=== PATIENT | male | born 1945 | race Caucasian/White ===

== ENCOUNTER 2020-03-10 07:42 | Outpatient (REF) | payer MEDICARE, SELFPAY ==
[2020-03-10 11:34] LABS: Estimated Average Glucose 169 mg/dL; Hemoglobin A1c % 7.5 %
[2020-03-10 11:54] LABS: Alanine Aminotransferase 14 U/L (0-40); Albumin Level 3.9 g/dL (3.5-5.0); Alkaline Phosphatase 74 U/L (39-117); Anion Gap 11 (12-20); Aspartate Amino Transferase 17 U/L (5-37); Bilirubin Total 0.4 mg/dL (0.0-1.0); Blood Urea Nitrogen 30 mg/dL (9-16); Calcium 8.4 mg/dL (8.4-10.2); Carbon Dioxide 27 mmol/L (22-29); Chloride 102 mmol/L (96-108); Cholesterol 205 mg/dL; Estimated Glomerular Filt Rate > 60; Glucose Fasting 138 mg/dL (60-99); HDL Cholesterol 56 mg/dL; LDL Cholesterol Calculated 125 mg/dl; Potassium 4.4 mmol/l (3.3-5.1); Sodium 136 mmol/L (135-145); Triglycerides 121 mg/dL
[2020-03-10 12:22] LABS: Creatinine Urine 73.09 mg/dL; Microalbum/Creatinine Ratio Ur 9.5 ug/mg cr
== END 2020-03-10 07:43 | disposition home or self-care (01) ==
LOC: HO.MANLR 07:42
PROVIDERS: PCP Internal Medicine; Visit Provider Internal Medicine
DX: E11.9 Type 2 diabetes mellitus without complications (principal)
CPT/HCPCS: 80053; 80061; 82043; 83036

== ENCOUNTER 2020-08-03 07:49 | Outpatient (REF) | payer MEDICARE, SELFPAY ==
[2020-08-03 11:49] LABS: Estimated Average Glucose 166 mg/dL; Hemoglobin A1c % 7.4 %
[2020-08-03 11:53] LABS: Alanine Aminotransferase 11 U/L (0-40); Albumin Level 3.7 g/dL (3.5-5.0); Alkaline Phosphatase 71 U/L (39-117); Anion Gap 13 (12-20); Aspartate Amino Transferase 17 U/L (5-37); Bilirubin Total 0.5 mg/dL (0.0-1.0); Blood Urea Nitrogen 24 mg/dL (9-16); Calcium 8.7 mg/dL (8.4-10.2); Carbon Dioxide 25 mmol/L (22-29); Chloride 105 mmol/L (96-108); Cholesterol 191 mg/dL; Estimated Glomerular Filt Rate > 60; Glucose Fasting 149 mg/dL (60-99); HDL Cholesterol 52 mg/dL; LDL Cholesterol Calculated 117 mg/dl; Potassium 4.7 mmol/L (3.3-5.1); Sodium 138 mmol/L (135-145); Total Protein 6.7 g/dL (6.5-8.0); Triglycerides 110 mg/dL
[2020-08-03 12:35] LABS: Microalbum/Creatinine Ratio Ur 8.5 ug/mg cr
== END 2020-08-03 07:50 | disposition home or self-care (01) ==
LOC: HO.MANLDS 07:49
PROVIDERS: PCP Internal Medicine; Visit Provider Internal Medicine
DX: E11.9 Type 2 diabetes mellitus without complications (principal)
CPT/HCPCS: 36415; 80053; 80061; 82043; 83036

== ENCOUNTER 2020-11-10 11:03 | Outpatient (REF) | payer MEDICARE, SELFPAY ==
[2020-11-10 13:08] LABS: Estimated Average Glucose 163 mg/dL; Hemoglobin A1c % 7.3 %
== END 2020-11-10 11:04 | disposition home or self-care (01) ==
LOC: HO.MANLDS 11:03
PROVIDERS: PCP Internal Medicine; Visit Provider Internal Medicine
DX: E11.9 Type 2 diabetes mellitus without complications (principal)
CPT/HCPCS: 36415; 83036

== ENCOUNTER 2021-02-14 13:46 | Outpatient (REF) | payer MEDICARE, SELFPAY ==
[2021-02-14 18:18] LABS: Estimated Average Glucose 169 mg/dL; Hemoglobin A1c % 7.5 %
== END 2021-02-14 13:47 | disposition home or self-care (01) ==
LOC: HO.MANLDS 13:46
PROVIDERS: PCP Internal Medicine; Visit Provider Internal Medicine
DX: E11.9 Type 2 diabetes mellitus without complications (principal)
CPT/HCPCS: 36415; 83036

== ENCOUNTER 2021-06-22 09:05 | Outpatient (REF) | payer MEDICARE, SELFPAY ==
[2021-06-22 11:58] LABS: Estimated Average Glucose 177 mg/dL; Hemoglobin A1c % 7.8 %
[2021-06-22 12:12] LABS: Microalbum/Creatinine Ratio Ur 46.1 ug/mg cr
[2021-06-22 12:13] LABS: Alanine Aminotransferase 17 U/L (0-40); Alkaline Phosphatase 77 U/L (39-117); Anion Gap 12 (12-20); Aspartate Amino Transferase 18 U/L (5-37); Bilirubin Total 0.6 mg/dL (0.0-1.0); Blood Urea Nitrogen 25 mg/dL (9-16); Calcium 9.1 mg/dL (8.4-10.2); Carbon Dioxide 26 mmol/L (22-29); Chloride 104 mmol/L (96-108); Cholesterol 210 mg/dL; Estimated Glomerular Filt Rate > 60; Glucose Fasting 169 mg/dL (60-99); HDL Cholesterol 56 mg/dL; LDL Cholesterol Calculated 124 mg/dl; Potassium 4.3 mmol/L (3.3-5.1); Sodium 138 mmol/L (135-145); Total Protein 7.4 g/dL (6.5-8.0); Triglycerides 152 mg/dL
== END 2021-06-22 09:06 | disposition home or self-care (01) ==
LOC: HO.MANLDS 09:05
PROVIDERS: PCP Internal Medicine; Visit Provider Internal Medicine
DX: E11.9 Type 2 diabetes mellitus without complications (principal)
CPT/HCPCS: 36415; 80053; 80061; 82043; 83036

== ENCOUNTER 2021-11-18 08:23 | Outpatient (REF) | payer MEDICARE, SELFPAY ==
[2021-11-18 11:38] LABS: Estimated Average Glucose 177 mg/dL; Hemoglobin A1c % 7.8 %
[2021-11-18 11:47] LABS: Alanine Aminotransferase 12 U/L (0-40); Albumin Level 3.9 g/dL (3.5-5.0); Alkaline Phosphatase 81 U/L (39-117); Anion Gap 16 (12-20); Aspartate Amino Transferase 15 U/L (5-37); Bilirubin Total 0.5 mg/dL (0.0-1.0); Blood Urea Nitrogen 29 mg/dL (9-16); Calcium 9.4 mg/dL (8.4-10.2); Carbon Dioxide 26 mmol/L (22-29); Chloride 104 mmol/L (96-108); Cholesterol 213 mg/dL; Estimated Glomerular Filt Rate 43; Glucose Random 176 mg/dL (60-115); HDL Cholesterol 57 mg/dL; LDL Cholesterol Calculated 131 mg/dl; Potassium 5.2 mmol/L (3.3-5.1); Sodium 141 mmol/L (135-145); Total Protein 7.4 g/dL (6.5-8.0); Triglycerides 125 mg/dL
[2021-11-18 12:11] LABS: Microalbum/Creatinine Ratio Ur 21.7 ug/mg cr
[2021-11-27 11:55] LABS: A. Phagocytophilum Ab IgM <1:20 (<1:20); E. Chaffeensis Ab IgG <1:64 (<1:64); E. Chaffeensis Ab IgM <1:20 (<1:20); Interpretation PAST INFECTION
== END 2021-11-18 08:24 | disposition home or self-care (01) ==
LOC: HO.MANLDS 08:23
PROVIDERS: Visit Provider Internal Medicine
DX: E11.9 Type 2 diabetes mellitus without complications (principal); A79.82 Anaplasmosis [A. phagocytophilum]
CPT/HCPCS: 36415; 80053; 80061; 82043; 83036; 86666

== ENCOUNTER 2021-12-02 10:51 | Outpatient (REF) | payer MEDICARE, SELFPAY ==
[2021-12-02 12:44] LABS: Hematocrit 39.4 % (42.0-52.0); Hemoglobin 13.2 g/dl (14.0-18.0); Mean Corpuscular HGB Conc 33.5 g/dl (31.0-36.0); Mean Corpuscular Hemoglobin 29.9 pg (27.0-33.0); Mean Corpuscular Volume 89.1 fL (80.0-98.0); Mean Platelet Volume 9.6 fL (9.4-12.4); Platelet Count 261 X10*3/uL (160-400); Red Blood Count 4.42 X10*6/uL (4.60-5.80); Red Cell Distribution Width 13.4 % (11.0-16.0); White Blood Count 7.6 X10*3/uL (4.8-10.8)
[2021-12-02 13:29] LABS: Erythrocyte Sedimentation Rate 16 MM/HR (0-15)
[2021-12-02 13:53] LABS: Prostate Specific Antigen 0.59 ng/mL (<0.05-4.0)
== END 2021-12-02 10:52 | disposition home or self-care (01) ==
LOC: HO.MANLDS 10:51
PROVIDERS: Visit Provider Internal Medicine
DX: I10 Essential (primary) hypertension (principal); Z12.5 Encounter for screening for malignant neoplasm of prostate
CPT/HCPCS: 36415; 84153; 85027; 85652

== ENCOUNTER 2022-02-21 09:23 | Outpatient (REF) | payer MEDICARE, SELFPAY ==
[2022-02-21 11:57] LABS: Estimated Average Glucose 157 mg/dL; Hemoglobin A1c % 7.1 %
== END 2022-02-21 09:24 | disposition home or self-care (01) ==
LOC: HO.MANLDS 09:23
PROVIDERS: Visit Provider Internal Medicine
DX: E11.9 Type 2 diabetes mellitus without complications (principal)
CPT/HCPCS: 36415; 83036

== ENCOUNTER 2022-05-23 14:51 | Outpatient (REF) | payer MEDICARE, SELFPAY ==
[2022-05-23 18:07] LABS: Estimated Average Glucose 157 mg/dL; Hemoglobin A1c % 7.1 %
== END 2022-05-23 14:52 | disposition home or self-care (01) ==
LOC: HO.MANLDS 14:51
PROVIDERS: Visit Provider Internal Medicine
DX: E11.9 Type 2 diabetes mellitus without complications (principal)
CPT/HCPCS: 36415; 83036

== ENCOUNTER 2022-06-05 10:38 | Outpatient (REF) | payer MEDICARE, SELFPAY ==
[2022-06-05 14:48] LABS: Creatinine Urine 45.92 mg/dL; Microalbum/Creatinine Ratio Ur 52.2 ug/mg cr
[2022-06-06 21:49] LABS: Lyme Abs Screen <0.90 index
== END 2022-06-05 10:39 | disposition home or self-care (01) ==
LOC: HO.MANLDS 10:38
PROVIDERS: Visit Provider Internal Medicine
DX: T14.8XXA Other injury of unspecified body region, initial encounter (principal); W57.XXXA Bitten or stung by nonvenomous insect and other nonvenomous arthropods, initial encounter; E11.9 Type 2 diabetes mellitus without complications
CPT/HCPCS: 36415; 82043; 86617; 86618

== ENCOUNTER 2022-07-07 10:56 | Outpatient (REF) | payer MEDICARE, SELFPAY ==
[2022-07-07 12:54] LABS: MANUAL DIFF FLAG NO
[2022-07-07 12:57] LABS: Appearance Urine Clear; Color Urine Yellow; Glucose Urine UA Negative (Negative); Leukocyte Esterase Urine Negative (Negative); Nitrite Urine Negative (Negative); Specific Gravity - Urine 1.015 (1.005-1.025); Urine Blood Negative (Negative); Urine Ketones Negative (Negative); Urine Protein Negative (Neg-Trace)
[2022-07-07 13:01] LABS: Basophils Percent Auto 0.1 % (0-2); Eosinophils Absolute Auto 0.2 X10*3/uL (0.0-0.4); Eosinophils Percent Auto 2.8 % (0-4); Hematocrit 38.7 % (42.0-52.0); Hemoglobin 12.8 g/dl (14.0-18.0); Imm Gran Abs Auto 0.03 X10*3/uL (0.00-0.03); Imm Gran Pct Auto 0.3 % (0.0-0.4); Lymphocytes Absolute Auto 1.9 X10*3/uL (1.2-4.9); Lymphocytes Percent Auto 22.4 % (20-40); Mean Corpuscular HGB Conc 33.1 g/dl (31.0-36.0); Mean Corpuscular Hemoglobin 30.2 pg (27.0-33.0); Mean Corpuscular Volume 91.3 fL (80.0-98.0); Mean Platelet Volume 9.7 fL (9.4-12.4); Monocytes Absolute Auto 0.6 X10*3/uL (0.1-1.2); Neutrophils Absolute Auto 5.8 x10*3/uL (2.0-8.3); Neutrophils Percent Auto 67.4 % (45-73); Platelet Count 320 X10*3/uL (160-400); Red Blood Count 4.24 X10*6/uL (4.60-5.80); Red Cell Distribution Width 13.5 % (11.0-16.0); White Blood Count 8.6 X10*3/uL (4.8-10.8)
[2022-07-07 13:02] LABS: Bacteria Urine None Seen (None Seen); Hyaline Casts Urine 0-2 /LPF (0-2); RBC Urine 0-2 /HPF (0-2); Squamous Epithelial Cell Urine 0-2 /HPF (0-2); WBC Urine 0-5 /HPF (0-5)
[2022-07-07 13:06] LABS: Estimated Average Glucose 174 mg/dL; Hemoglobin A1c % 7.7 %
[2022-07-07 13:40] LABS: Alanine Aminotransferase 13 U/L (0-40); Alkaline Phosphatase 92 U/L (39-117); Anion Gap 14 (12-20); Aspartate Amino Transferase 14 U/L (5-37); Bilirubin Total 0.7 mg/dL (0.0-1.0); Blood Urea Nitrogen 29 mg/dL (9-16); Calcium 9.1 mg/dL (8.4-10.2); Carbon Dioxide 25 mmol/L (22-29); Chloride 103 mmol/L (96-108); Estimated Glomerular Filt Rate 49; Glucose Random 166 mg/dL (60-115); Sodium 137 mmol/L (135-145); Total Protein 7.2 g/dL (6.5-8.0)
[2022-07-07 14:04] LABS: Prostate Specific Antigen 0.92 ng/mL (<0.05-4.0); Vitamin B12 371 pg/mL (200-900); Vitamin D 25-OH Total 23.4 ng/mL (>30)
[2022-07-10 18:53] LABS: Lyme Abs Screen <0.90 index
== END 2022-07-07 10:57 | disposition home or self-care (01) ==
LOC: HO.MANLDS 10:56
PROVIDERS: Visit Provider Internal Medicine
DX: Z12.5 Encounter for screening for malignant neoplasm of prostate (principal); R30.9 Painful micturition, unspecified; T14.8XXA Other injury of unspecified body region, initial encounter; W57.XXXA Bitten or stung by nonvenomous insect and other nonvenomous arthropods, initial encounter; E11.9 Type 2 diabetes mellitus without complications; I10 Essential (primary) hypertension; N39.0 Urinary tract infection, site not specified; E55.9 Vitamin D deficiency, unspecified
CPT/HCPCS: 36415; 80053; 81001; 82306; 82607; 83036; 84153; 85025; 86617; 86618

== ENCOUNTER 2022-07-19 09:36 | Outpatient (REF) | payer MEDICARE, SELFPAY ==
[2022-07-19 11:30] LABS: Appearance Urine Cloudy; Color Urine Yellow; Glucose Urine UA Negative (Negative); Leukocyte Esterase Urine Large (3+) (Negative); Nitrite Urine Negative (Negative); UMIC TRIGGER UACC YES; Urine Blood Trace (Negative); Urine Ketones Negative (Negative); Urine Protein Trace mg/dL (Neg-Trace)
[2022-07-19 11:49] LABS: Bacteria Urine 4+ (None Seen); Hyaline Casts Urine 0-2 /LPF (0-2); RBC Urine 0-2 /HPF (0-2); Squamous Epithelial Cell Urine 0-2 /HPF (0-2); UACC Culture Trigger YES; WBC Urine >50 /HPF (0-5)
[2022-07-19 11:57] LABS: Uric Acid 8.4 mg/dL (3.4-7.0)
== END 2022-07-19 09:37 | disposition home or self-care (01) ==
LOC: HO.MANLDS 09:36
PROVIDERS: Visit Provider Internal Medicine
DX: E79.0 Hyperuricemia without signs of inflammatory arthritis and tophaceous disease (principal); R30.9 Painful micturition, unspecified
CPT/HCPCS: 36415; 81001; 84550; 87086; 87088; 87186

== ENCOUNTER 2022-08-02 11:04 | Outpatient (REF) | payer MEDICARE, SELFPAY ==
[2022-08-02 14:18] LABS: Estimated Average Glucose 163 mg/dL; Hemoglobin A1c % 7.3 %
[2022-08-02 15:09] LABS: Alanine Aminotransferase 12 U/L (0-40); Albumin Level 3.8 g/dL (3.5-5.0); Alkaline Phosphatase 88 U/L (39-117); Anion Gap 13 (12-20); Aspartate Amino Transferase 15 U/L (5-37); Bilirubin Total 0.4 mg/dL (0.0-1.0); Blood Urea Nitrogen 21 mg/dL (9-16); Calcium 9.4 mg/dL (8.4-10.2); Carbon Dioxide 27 mmol/L (22-29); Chloride 104 mmol/L (96-108); Estimated Glomerular Filt Rate 56; Glucose Random 197 mg/dL (60-115); Potassium 5.3 mmol/L (3.3-5.1); Sodium 139 mmol/L (135-145); Total Protein 7.1 g/dL (6.5-8.0)
== END 2022-08-02 11:05 | disposition home or self-care (01) ==
LOC: HO.MANLDS 11:04
PROVIDERS: Visit Provider Internal Medicine
DX: E11.9 Type 2 diabetes mellitus without complications (principal)
CPT/HCPCS: 36415; 80053; 83036

== ENCOUNTER 2022-08-08 08:59 | Outpatient (REF) | payer MEDICARE, SELFPAY ==
[2022-08-08 11:20] LABS: Appearance Urine Clear; Color Urine Yellow; Glucose Urine UA Negative (Negative); Leukocyte Esterase Urine Trace (Negative); Nitrite Urine Negative (Negative); PH 5.5 (5.0-9.0); Specific Gravity - Urine <= 1.005 (1.005-1.025); UMIC TRIGGER UACC YES; Urine Blood Negative (Negative); Urine Ketones Negative (Negative); Urine Protein Negative (Neg-Trace)
[2022-08-08 11:24] LABS: Bacteria Urine None Seen (None Seen); Hyaline Casts Urine 0-2 /LPF (0-2); RBC Urine 0-2 /HPF (0-2); Squamous Epithelial Cell Urine 0-2 /HPF (0-2); WBC Urine 0-5 /HPF (0-5)
== END 2022-08-08 09:00 | disposition home or self-care (01) ==
LOC: HO.MANLNP 08:59
PROVIDERS: Visit Provider Internal Medicine
DX: N39.0 Urinary tract infection, site not specified (principal)
CPT/HCPCS: 81001; 87086

== ENCOUNTER 2022-09-25 09:30 | Outpatient (REF) | payer MEDICARE, SELFPAY ==
[2022-09-25 12:03] LABS: Alanine Aminotransferase 12 U/L (0-40); Albumin Level 3.8 g/dL (3.5-5.0); Alkaline Phosphatase 75 U/L (39-117); Anion Gap 13 (12-20); Aspartate Amino Transferase 15 U/L (5-37); Bilirubin Total 0.4 mg/dL (0.0-1.0); Blood Urea Nitrogen 16 mg/dL (9-16); Calcium 9.1 mg/dL (8.4-10.2); Carbon Dioxide 25 mmol/L (22-29); Chloride 107 mmol/L (96-108); Estimated Glomerular Filt Rate > 60; Glucose Random 153 mg/dL (60-115); Potassium 4.3 mmol/L (3.3-5.1); Sodium 141 mmol/L (135-145)
[2022-09-25 12:17] LABS: Estimated Average Glucose 151 mg/dL; Hemoglobin A1c % 6.9 %
== END 2022-09-25 09:31 | disposition home or self-care (01) ==
LOC: HO.MANLDS 09:30
PROVIDERS: Visit Provider Internal Medicine
DX: E11.9 Type 2 diabetes mellitus without complications (principal)
CPT/HCPCS: 36415; 80053; 83036

== ENCOUNTER 2023-03-14 09:46 | Outpatient (REF) | payer MEDICARE, SELFPAY ==
[2023-03-14 13:35] LABS: Estimated Average Glucose 148 mg/dL; Hemoglobin A1c % 6.8 % (<6.0)
[2023-03-14 13:40] LABS: Alanine Aminotransferase 12 U/L (0-40); Alkaline Phosphatase 82 U/L (39-117); Anion Gap 13 (12-20); Aspartate Amino Transferase 17 U/L (5-37); Bilirubin Total 0.4 mg/dL (0.0-1.0); Blood Urea Nitrogen 24 mg/dL (9-16); Calcium 9.1 mg/dL (8.4-10.2); Carbon Dioxide 24 mmol/L (22-29); Chloride 106 mmol/L (96-108); Cholesterol 135 mg/dL (<200); Estimated Glomerular Filt Rate > 60; Glucose Random 164 mg/dL (60-115); HDL Cholesterol 58 mg/dL (>40); LDL Cholesterol Calculated 51 mg/dL (<100); Potassium 4.1 mmol/L (3.3-5.1); Sodium 139 mmol/L (135-145); Total Protein 7.6 g/dL (6.5-8.0); Triglycerides 133 mg/dL (<150)
== END 2023-03-14 09:47 | disposition home or self-care (01) ==
LOC: HO.MANLDS 09:46
PROVIDERS: Visit Provider Internal Medicine
DX: E11.9 Type 2 diabetes mellitus without complications (principal)
CPT/HCPCS: 36415; 80053; 80061; 83036

== ENCOUNTER 2023-05-09 10:56 | Outpatient (REF) | payer MEDICARE, SELFPAY ==
[2023-05-09 13:51] LABS: Estimated Average Glucose 157 mg/dL; Hemoglobin A1c % 7.1 % (<6.0)
== END 2023-05-09 10:57 | disposition home or self-care (01) ==
LOC: HO.MANLDS 10:56
PROVIDERS: Visit Provider Internal Medicine
DX: E11.9 Type 2 diabetes mellitus without complications (principal)
CPT/HCPCS: 36415; 83036

== ENCOUNTER 2023-09-03 14:08 | Outpatient (REF) | payer MEDICARE, SELFPAY ==
[2023-09-03 17:33] LABS: MANUAL DIFF FLAG NO
[2023-09-03 17:44] LABS: Basophils Percent Auto 0.2 % (0-2); Eosinophils Absolute Auto 0.2 X10*3/uL (0.0-0.4); Eosinophils Percent Auto 4.1 % (0-4); Hematocrit 38.7 % (42.0-52.0); Hemoglobin 12.9 g/dl (14.0-18.0); Imm Gran Abs Auto 0.01 X10*3/uL (0.00-0.03); Imm Gran Pct Auto 0.2 % (0.0-0.4); Lymphocytes Absolute Auto 1.3 X10*3/uL (1.2-4.9); Lymphocytes Percent Auto 24.5 % (20-40); Mean Corpuscular HGB Conc 33.3 g/dl (31.0-36.0); Mean Corpuscular Hemoglobin 30.4 pg (27.0-33.0); Mean Corpuscular Volume 91.1 fL (80.0-98.0); Mean Platelet Volume 9.8 fL (9.4-12.4); Monocytes Absolute Auto 0.4 X10*3/uL (0.1-1.2); Monocytes Percent Auto 7.6 % (2-11); Neutrophils Absolute Auto 3.4 x10*3/uL (2.0-8.3); Neutrophils Percent Auto 63.4 % (45-73); Platelet Count 269 X10*3/uL (160-400); Red Blood Count 4.25 X10*6/uL (4.60-5.80); White Blood Count 5.4 X10*3/uL (4.8-10.8)
[2023-09-03 18:08] LABS: Alanine Aminotransferase 13 U/L (0-40); Alkaline Phosphatase 76 U/L (39-117); Anion Gap 14 (12-20); Aspartate Amino Transferase 17 U/L (5-37); Bilirubin Total 0.4 mg/dL (0.0-1.0); Blood Urea Nitrogen 24 mg/dL (9-16); C Reactive Protein 0.19 mg/dL (< or = 0.50); Calcium 9.3 mg/dL (8.4-10.2); Carbon Dioxide 24 mmol/L (22-29); Chloride 107 mmol/L (96-108); Estimated Glomerular Filt Rate > 60; Glucose Random 138 mg/dL (60-115); Potassium 4.5 mmol/L (3.3-5.1); Sodium 140 mmol/L (135-145); Total Protein 7.5 g/dL (6.5-8.0)
[2023-09-03 18:20] LABS: Erythrocyte Sedimentation Rate 11 MM/HR (0-15)
== END 2023-09-03 14:09 | disposition home or self-care (01) ==
LOC: HO.MANLDS 14:08
PROVIDERS: Visit Provider Internal Medicine
DX: Z00.00 Encounter for general adult medical examination without abnormal findings (principal); N50.819 Testicular pain, unspecified; R10.2 Pelvic and perineal pain
CPT/HCPCS: 36415; 80053; 85025; 85652; 86140

== ENCOUNTER 2024-07-01 10:35 | Outpatient (REF) | payer MEDICARE, SELFPAY ==
--- OUTSIDE RECORDS SUMMARY | 2024-07-01 12:36 | XMS_ITS | Data Portability ---
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) MDM MODERATE MUST MEET 2 OUT OF 3 ELEMENTS: PROBLEMS, DATA OR RISK ELEMENT 1: PROBLEMS ADDRESSED 1 OR MORE CHRONIC ILLNESS WITH EXACERBATION OR 2 OR MORE STABLE CHRONIC ILLNESSES OR 1 UNDIAGNOSED NEW PROBLEM OR 1 ACUTE ILLNESS W/SYMPTOMS OR 1 ACUTE COMPLICATED INJURY ELEMENT 2: DATA MUST MEET 1 OF 3 CATEGORIES CATEGORY 1: REVIEW OF PRIOR EXTERNAL NOTES, REVIEW OF RESULTS, ORDERING OF EACH TEST, ASSESSMENT REQUIRING INDEPENDENT HISTORIAN OR CATEGORY 2: INDEPENDENT INTERPRETATION OF TESTS BY ANOTHER PHYSICIAN OR SPECIALIST OR CATEGORY 3: DISCUSSION OF MGT OR TEST INTERPRETATION W/EXTERNAL PHYSICIAN OR SPECIALIST ELEMENT 3: RISK RISK OF COMPLICATIONS AND/OR MORBIDITY OR MORTALITY OF PATIENT MANAGEMENT PROVIDER MUST THOROUGHLY DOCUMENT EACH ELEMENT THAT IS COVERED Not available 05/29/2023 15:34:08 09/03/2023 09/03/2023 Patient presente d to office today for their Medicare Annual Wellness Visit. Education was provided on healthy nutrition, including a diet rich in fruits and vegetables, minimizing simple carbohydrates, salt, and saturated fats. Encouraged regular cardiovascular exercise such as walking at least 30 minutes daily, 5 times per week. Emphasized preventive health measures and educated pt on fall prevention and community-based lifestyle interventions to help reduce health risks and promote healthy living. 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) MDM MODERATE MUST MEET 2 OUT OF 3 ELEMENTS: PROBLEMS, DATA OR RISK ELEMENT 1: PROBLEMS ADDRESSED 1 OR MORE CHRONIC ILLNESS WITH EXACERBATION OR 2 OR MORE STABLE CHRONIC ILLNESSES OR 1 UNDIAGNOSED NEW PROBLEM OR 1 ACUTE ILLNESS W/SYMPTOMS OR 1 ACUTE COMPLICATED INJURY ELEMENT 2: DATA MUST MEET 1 OF 3 CATEGORIES CATEGORY 1: REVIEW OF PRIOR EXTERNAL NOTES, REVIEW OF RESULTS, ORDERING OF EACH TEST, ASSESSMENT REQUIRING INDEPENDENT HISTORIAN OR CATEGORY 2: INDEPENDENT INTERPRETATION OF TESTS BY ANOTHER PHYSICIAN OR SPECIALIST OR CATEGORY 3: DISCUSSION OF MGT OR TEST INTERPRETATION W/EXTERNAL PHYSICIAN OR SPECIALIST ELEMENT 3: RISK RISK OF COMPLICATIONS AND/OR MORBIDITY OR MORTALITY OF PATIENT MANAGEMENT PROVIDER MUST THOROUGHLY DOCUMENT EACH ELEMENT THAT IS COVERED Not available 12/26/2023 14:54:28 03/19/2024 03/19/2024 [id number] [place] [id number] (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) MDM MODERATE MUST MEET 2 OUT OF 3 ELEMENTS: PROBLEMS, DATA OR RISK ELEMENT 1: PROBLEMS ADDRESSED 1 OR MORE CHRONIC ILLNESS WITH EXACERBATION OR 2 OR MORE STABLE CHRONIC ILLNESSES OR 1 UNDIAGNOSED NEW PROBLEM OR 1 ACUTE ILLNESS W/SYMPTOMS OR 1 ACUTE COMPLICATED INJURY ELEMENT 2: DATA MUST MEET 1 OF 3 CATEGORIES CATEGORY 1: REVIEW OF PRIOR EXTERNAL NOTES, REVIEW OF RESULTS, ORDERING OF EACH TEST, ASSESSMENT REQUIRING INDEPENDENT HISTORIAN OR CATEGORY 2: INDEPENDENT INTERPRETATION OF TESTS BY ANOTHER PHYSICIAN OR SPECIALIST OR CATEGORY 3: DISCUSSION OF MGT OR TEST INTERPRETATION W/EXTERNAL PHYSICIAN OR SPECIALIST ELEMENT 3: RISK RISK OF COMPLICATIONS AND/OR MORBIDITY OR MORTALITY OF PATIENT MANAGEMENT PROVIDER MUST THOROUGHLY DOCUMENT EACH ELEMENT THAT IS COVERED Not available 03/19/2024 13:44:28 06/11/2024 06/11/2024 [id number] [place] [id number] (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) MDM MODERATE MUST MEET 2 OUT OF 3 ELEMENTS: PROBLEMS, DATA OR RISK ELEMENT 1: PROBLEMS ADDRESSED 1 OR MORE CHRONIC ILLNESS WITH EXACERBATION OR 2 OR MORE STABLE CHRONIC ILLNESSES OR 1 UNDIAGNOSED NEW PROBLEM OR 1 ACUTE ILLNESS W/SYMPTOMS OR 1 ACUTE COMPLICATED INJURY ELEMENT 2: DATA MUST MEET 1 OF 3 CATEGORIES CATEGORY 1: REVIEW OF PRIOR EXTERNAL NOTES, REVIEW OF RESULTS, ORDERING OF EACH TEST, ASSESSMENT REQUIRING INDEPENDENT HISTORIAN OR CATEGORY 2: INDEPENDENT INTERPRETATION OF TESTS BY ANOTHER PHYSICIAN OR SPECIALIST OR CATEGORY 3: DISCUSSION OF MGT OR TEST INTERPRETATION W/EXTERNAL PHYSICIAN OR SPECIALIST ELEMENT 3: RISK RISK OF COMPLICATIONS AND/OR MORBIDITY OR MORTALITY OF PATIENT MANAGEMENT PROVIDER MUST THOROUGHLY DOCUMENT EACH ELEMENT THAT IS COVERED Not available 06/11/2024 14:04:36 Plan of Treatment Reminders Order Date Submit Date Provider Last Modified By Organization Details Last Modified Time Details Appointments FOLLOW UP 2024 02:15P Gerri RIOS Not available Not available Not available Lab uric acid, serum or plasma 2024 025 [facility], [address] [place] [address], [id number], 06/11/2024 14:13:06 C reactive protein, QN, serum or plasma 2023 024 [facility], [address] [place] [address], [address], 09/03/2023 14:00:55 ESR (erythroc yte sedimenta tion rate), blood 2023 024 [facility], [address] [place] [address], [address], 09/03/2023 14:00:55 hemoglobi n, gastroint estinal, stool 2023 024 [facility], [address] [place] [address], [address], 09/03/2023 14:00:54 CBC w/ auto diff 2023 024 [facility], [address] [place] [address], [address], 09/04/2023 11:28:29 CMP, serum or plasma 2023 024 [facility], [address] [place] [address], [address], 09/04/2023 11:28:29 Referral None recorded. Procedures None recorded. Surgeries None recorded. Imaging MRI, pelvis, w/o contrast [facility]24 [facility], [address], [address], 01/22/2024 08:29:20 MRI, pelvis, w/o contrast [facility] [address] [place], [address], 10/29/2023 08:10:10 Medication Orders lorazepam 1 mg tablet 2023 [email or web address] [facility], [address] [place], [address], 06/11/2024 13:45:56 rosuvasta tin 5 mg tablet 2023 [facility], [address] [place], [address], 09/03/2023 13:52:35 lisinopri l 5 mg tablet 2023 [facility], [address] [place], [address], 09/03/2023 13:52:35 Patient TargetsNo targets recorded. Patient Instructions Encounter Date Encounter Id Patient Instructions Last Modified By Organization Details Last Modified Time 09/03/2023 [id number] testicular pain: care instructions Not available 09/03/2023 13:52:32 advance care planning: care instructions Not available 09/03/2023 13:52:32 Discussed and explained advance directives such as standard forms to the {{patient* caregi christiano patient and caregiver}}. Face to face discussion lasted for a duration of _10_ minutes. Not available 09/03/2023 13:58:24 12/26/2023 [id number] gout: care instructions Not available 12/26/2023 15:02:29 learning about type 2 diabetes Not available 12/26/2023 15:02:29 type 2 diabetes: care instructions Not available 12/26/2023 15:02:29 06/11/2024 [id number] gout: care instructions Not available 06/11/2024 14:07:02 learning about type 2 diabetes Not available 06/11/2024 14:07:02 type 2 diabetes: care instructions Not available 06/11/2024 14:07:02 high blood pressure: care instructions Not available 06/11/2024 14:07:02 learning about high blood pressure Not available 06/11/2024 14:07:02 Reason for Referral None Reported. Results Created Date Observation Date Name Description Value Unit Range Abnormal Flag Note LastModifiedBy Organization Detail LastModifiedTime 06/10/1906/09/2024 HbA1c (hemo globi n A1c), blood A1C 7.5 abnormal Not Available [facility] [address] [place] [address], [place], [address], 06/09/2024 14:26:38 02/05/20 24 02/05/2024 MRI, pelvi s, w/o contr ast No observ ation record ed. [facility] [address], [address], 03/19/2024 13:43:14 Result Notes None recorded. 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 Shelley banda [facility] 5 08:37:25 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 Shelley banda [facility] 5 08:37:25 Type 2 diabetes mellitus 95175574 Active [address] [facility] 08:[facility]:25 Neuropath y due to diabetes mellitus 537143218 Active 2017 [facility] [facility] 5 08:37:25 Ankle edema 01560869 Active [address] [facility] [facility] 5 08:37:25 Sprain of ankle 78580200 Active 2017 [facility] [facility] 5 08:37:03 Essential hypertens ion 69384936 Active [address] 5 08:37:25 Obesity 849289247 Active [address] 5 08:37:25 Pain in scrotum 45819654 [facility] [address] [facility] 5 08:37:03 Acute urinary tract infection 634124922 Active [address] [facility] 5 08:37:03 Meralgia paresthet ica of right leg 348706515196 108 Active [address] [facility] [address] [facility] 5 08:37:25 Dysuria 12864236 [facility] [address] [facility] [address] [facility] 5 08:37:25 Gout 03214340 [facility] [address] [facility] 5 08:37:25 Urinary bladder pain 12127717 [facility] [address] [facility] [address] [facility] 5 08:37:25 Vitamin D deficienc y 14260841 Active [address] [facility] 5 08:37:25 Disorder of vitamin B12 924599718 [facility] [address] [facility] 5 08:37:25 Fatigue 87158867 [facility] [address] [facility] [address] [facility] 5 08:37:03 Paronychi a of toe 392855776 Active 2022 Shelley banda, [facility] 5 08:37:03 Diverticu losis of colon 864621024 Active [address] [facility] 5 08:37:25 Pain in testicle 50755438 Active 2023 Shelleymichelle banda, [facility] 5 08:37:03 Pelvic and perineal pain 262644212 Active 2023 Shelley oNah banda [facility] 5 08:37:03 Claustrop hobia 09884227 Active [address] [facility] 5 08:37:25 Prostatit is 6285689 Active [address] [facility] 5 08:37:25 Problem Notes None recorded. Procedures Surgical History Date Name Laterality Status Provider Name and Address Organization Details Recorded Time 8 Colonoscopy completed Dottie Robertson [facility] Internal [facility] 01/07/2019 10:43:08 0 Colonoscopy completed Anny Cook [facility] 03/18/2018 10:14:53 Imaging Results Imaging Date Name Status LastModified by Organiz ation Details LastModified Time 02/05/2024 MRI, pelvis, w/o contrast completed [facility] [address] [address], [place], [address], 03/19/2024 13:43:14 Procedure Notes None recorded. Medical Equipment None Reported. Allergies No known drug allergies Medications Name Sig Start Date Stop Date Status Note LastModified by Organization Details LastModified Time amoxicillin 500 mg capsule 11/27 completed Not Available Not Available Not Available prednisone 10 mg tablet TAKE 1 TABLET BY MOUTH EVERY DAY FOR 20 DAYS 05/29 completed Not Available Not Available Not Available doxycycline hyclate 100 mg capsule Take 1 capsule twice a day by oral route for 10 days. 05/29 completed Not Available Not Available Not Available cefpodoxime 100 mg tablet 06/02 completed Not Available Not Available Not Available hydrocodone 5 mg-acetamin ophen 325 mg tablet TAKE 1 TABLET BY MOUTH EVERY 6 HOURS NEEDED FOR PAIN 08/09 completed Not Available Not Available Not Available allopurinol 100 mg tablet TAKE 1 TABLET BY MOUTH EVERY DAY 2024 active Not Available Not Available Not Avai lable ciprofloxac in 500 mg tablet TAKE 1 TABLET BY MOUTH EVERY 12 HOURS FOR ACUTE OPIOID THERAPY DAYS 08/09 completed Not Available Not Available Not Available sulfamethox azole 800 mg-trimetho prim 160 mg tablet Take 1 tablet every 12 hours by oral route for 10 days. 06/11 completed Not Available Not Available Not Available amoxicillin 500 mg tablet TAKE 1 TABLET BY MOUTH THREE TIMES DAILY 08/09 completed Not Available Not Available Not Available ketorolac 0.5 % eye drops INSTILL ONE DROP INTO THE LEFT EYE THREE TIMES A DAY FOR 3 WEEKS FOLLOWING SURGERY 03/08/202008/09 completed Not Available Not Available Not Available terbinafine HCl 250 mg tablet TAKE 1 TABLET BY MOUTH EVERY DAY 08/09 completed Not Available Not Available Not Available tamsulosin 0.4 mg capsule active Not Available Not Available Not Available cephalexin 500 mg capsule 07/25 completed Not Available Not Available Not Available metformin 1,000 mg tablet TAKE ONE TABLET BY MOUTH ONCE DAILY active Not Available Not Available No t Available indomethaci n 25 mg capsule 08/07 completed Not Available Not Available Not Available lisinopril 5 mg tablet TAKE ONE TABLET BY MOUTH ONCE DAILY active Not Available Not Available No t Available mupirocin 2 % topical ointment APPLY SMALL AMOUNT TOPICALLY TO THE AFFECTED AREA THREE TIMES DAILY 06/02 completed Not Available Not Available Not Available lorazepam 1 mg tablet Take 1 tablet 3 times a day by oral route as needed for 7 days. 06/11 completed Not Available Not Available Not Available doxycycline hyclate 100 mg tablet TAKE 1 TABLET BY MOUTH TWICE DAILY FOR 10 DAYS 02/27 completed Not Available Not Available Not Available amoxicillin 875 mg-potassiu m clavulanate 125 mg tablet Take 1 tablet every 12 hours by oral route with meals for 10 days. 09/21 completed Not Available Not Available Not Available rosuvastati n 5 mg tablet Take 1 tablet every day by oral route. 2023 active Not Available Not Available Not Avai lable nitrofurant oin monohydrate /macrocryst als 100 mg capsule TAKE 1 CAPSULE BY MOUTH EVERY 12 HOURS FOR 10 DAYS 08/07 completed Not Available Not Available Not Available chlorhexidi ne gluconate 0.12 % mouthwash SWISH AND SPIT 10 ML BY MOUTH THREE TIMES A DAY 08/09 completed Not Available Not Available Not Available GaviLyte-G 236 gram-22.74 gram-6.74 gram-5.86 gram oral solution 06/25 completed Not Available Not Available Not Available OneTouch Verio test strips USE TO TEST BLOOD SUGAR THREE TIMES DAILY active Not Available Not Available No t Available Trulicity 1.5 mg/0.5 mL subcutaneou s pen injector Inject 0.5 mL every week by subcutane ous route as directed for 90 days. active Not Available Not Available No t Available Trulicity 0.75 mg/0.5 mL subcutaneou s pen injector ADMINISTE R 0.75 MG UNDER THE SKIN EVERY WEEK 06/02 completed Not Available Not Available Not Available Ozempic 1 mg/dose (4 mg/3 mL) subcutaneou s pen injector INJECT 1MG SUBCUTANE OUSLY ONCE EVERY WEEK active Not Available Not Available No t Available Vitals Date Recorded Body height Body mass index (BMI) Body weight Heart rate Oxygen saturation Oxygen saturation in Arterial blood by Pulse oximetry Systolic blood pressure Diastolic blood pressure Provider Name and Address Organization Details Last Updated DateTime 4 186.06 cm 33.4 kg/m2 350114. 05 g 80 /min 97 % 97 % 152 mm[Hg] 80 mm[Hg] Jordan Rios, DO [address] [place], [address] [place], [place] - [facility] 4 14:54:25 Date Recorded Body height Body mass index (BMI) Body weight Heart rate Oxygen saturation Oxygen saturation in Arterial blood by Pulse oximetry Systolic blood pressure Diastolic blood pressure Provider Name and Address Organization Details Last Updated DateTime 4 186.06 cm 32.7 kg/m2 380913. 66 g 75 /min 96 % 96 % 128 mm[Hg] 74 mm[Hg] Shelley Zamora [facility] 4 13:34:54 Date Recorded Body height Body mass index (BMI) Body weight Heart rate Oxygen saturation Oxygen saturation in Arterial blood by Pulse oximetry Systolic blood pressure Diastolic blood pressure Provider Name and Address Organization Details Last Updated DateTime 4 186.06 cm 33 kg/m2 152654. 28 g 77 /min 98 % 98 % 144 mm[Hg] 80 mm[Hg] Gena Strong [facility] 4 14:34:21 Date Recorded Body height Body mass index (BMI) Body weight Heart rate Oxygen saturation Oxygen saturation in Arterial blood by Pulse oximetry Systolic blood pressure Diastolic blood pressure Provider Name and Address Organization Details Last Updated DateTime 4 186.06 cm 32.5 kg/m2 009995. 91 g 82 /min 94 % 94 % 138 mm[Hg] 78 mm[Hg] Yovany Long [facility] 4 13:38:00 Date Recorded Body height Body mass index (BMI) Body weight Heart rate Oxygen saturation Oxygen saturation in Arterial blood by Pulse oximetry Systolic blood pressure Diastolic blood pressure Provider Name and Address Organization Details Last Updated DateTime 5 186.06 cm 32.9 kg/m2 298793. 68 g 75 /min 99 % 99 % 146 mm[Hg] 80 mm[Hg] Shelley Noah [facility] 5 13:50:51 Social History Question Answer Notes LastModified by Organizat ion Details LastModified Time Tobacco Smoking Status Never Smoker Not Available [email or web address] 02/03/2020 03:36:23 What Was The Date Of Your Most Recent Tobacco Screening? 06/11/2024 [email or web address] Information not available 06/11/2024 Do You Or Have You Ever Used Any Other Forms Of Tobacco Or Nicotine? No Information not available 06/02/2022 Sex: Unknown Functional Status None recorded. Mental Status None recorded. Family History Nothing Reported. Medical History No medical history recorded. Immunizations Vaccine Type Date Status Note Provider Nam e and Address Organization Details Recorded Time COVID-19, mRNA, LNP-S, PF, 30 mcg/0.3 mL dose 03/07/2021 completed Not Available [facility] 3 16:38:46 COVID-19, mRNA, LNP-S, PF, 30 mcg/0.3 mL dose 07/02/2020 completed Not Available [facility] 3 16:38:46 COVID-19, mRNA, LNP-S, PF, 30 mcg/0.3 mL dose 07/24/2020 completed Not Available [facility] 3 16:38:46 Past Encounters Encounter ID Performer Location Encounter Start Date Encounter Closed Date Diagnosis/Indication Diagnosis SNOMED-CT Code Diagnosis ICD10 Code Diagnosis Note [id number] Jordan Rios DO [facility] [address] [facility],[place] [address] 09/05/2017 09:52:19 09/05/2017 11:04:34 Type 2 diabetes mellitus 72088547 E11.9 doing well overall doing a good diet and is feeling well with some wgt loss Essential hypertension 66232583 I10 [id number] Jordan Rios DO [facility] [address] [facility],[place] [address] 12/19/2017 10:03:21 12/19/2017 11:32:01 Type 2 diabetes mellitus 18730847 E11.9 doing ok overall doing a good diet and is feeling well with some wgt loss Essential hypertension 97165796 I10 currently stable overall Adult [facility] examination 307639137 Z00.00 discussed lab in detail Screening for cardiovascular system disease 044424628 Z13.6 here and doing well Screening for malignant neoplasm of colon 630197586 Z12.11 per gi appt Constipation 10158259 K5 9.00 to try metamucil as directed along with probiot [id number] Jordan Rios DO [facility] [address] [facility],[address] [employer] [place] [address] 03/18/2018 09:57:59 03/18/2018 10:48:06 Essential hypertension 52876265 I10 currently stable overall Type 2 chris betes mellitus 43752204 E11.9 doing ok overall but needs to get back on track with eating better will get back to walking etc rechk in 3 mo Hepatitis C screening 41 1602429 Z11.59 next lab draw [id number] Jordan Rios DO [facility] [address] [facility],[place] [address] 06/25/2018 09:42:49 06/25/2018 10:44:20 Adult health examination 982248350 Z00.00 here for recheck and is doing ok his exam is difficult due to his obesity Active or passive immunization 786567518 Z23 Type 2 chris betes mellitus 86611101 E11.9 doing ok overall but needs to get back on track with eating better a1c is 7.1 and is elevated now will get back to walking etc MUST DO THIS rechk in 3 mo a long discussion re need to lose the wgt he gained and to get his sugars down Essential hypertension 16539037 I10 currently stable overall [id number] Jordan Rios DO [facility] [address] [facility],[place] [address] 09/30/2018 14:02:36 09/30/2018 15:17:49 Essential hypertension 85144888 I10 currently stable overall denies major sx no cp no sob Type 2 chris betes mellitus 30936700 E11.9 doing ok overall but needs to get back on track with eating better a1c is 7.1 and is the same as in may will get back to walking etc MUST DO THIS rechk in 3 mo a long discussion re need to lose the wgt he gained and to get his sugars down [id number] July MATHEW Rivera [facility] [address] [facility],[place] [address] 01/07/2019 10:28:10 01/07/2019 11:35:43 Diverticulosis of sigmoid colon 395606247 K57.[address] of abdomen discussed with MB recommend cipro 500 mg bid x 10 days reaction to flagyl hasn't done well with augmentin in the past Diarrhea 44608534 R19.7 Type 2 chris betes mellitus 60608507 E11.65 Essential hypertension 79166956 I10 [id number] Jordan Rios [facility] [address] [facility] [address],[place] [address] 01/17/2019 13:57:12 01/17/2019 14:54:27 Type 2 diabetes mellitus 61920715 E11.9 doing ok overall but needs to get back on track with eating better a1c is 6.9 was 7.1 and is the same as in may will get back to walking and needs to start agian rechk in 3 mo a long discussion re need to lose the wgt he gained and to get his sugars down Neuropathy due to diabetes mellitus 857870341 E11.40 about the same no major issues Essential hypertension 07816899 I10 currently stable overall denies major sx no cp no sob Traveler's diarrhea 1184 0006 A04.1 [id number] Jordan Rios DO [facility] [address] [facility],[place] [address] 05/07/2019 09:50:32 05/07/2019 10:46:06 Type 2 diabetes mellitus 39719371 E11.9 A1C elevated to 7.2 due to inactivity after teeth pulling Weight stable, will work on losing weight and more exercise Essential hypertension 09011628 I10 currently stable overall denies major sx no cp no sob Neuropathy due to diabetes mellitus 847524423 E11.40 stable [id number] Jordan Rios DO [facility] [address] [facility],[address] [place] [address] 09/03/2019 09:05:30 09/03/2019 10:02:59 Neuropathy due to diabetes mellitus 535892336 E11.40 stable and has not progressed Essential hypertension 52314433 I10 currently stable overall denies major sx no cp no sob Type 2 chris betes mellitus 82771672 E11.9 A1C elevated to 7.5 due to inactivity Weight stable, will work on losing weight and more exercise we are wondering whether he has an ongoing issue Kidney stone 82061277 N2 0.0 quiet and is followed by urology needs psa Ankle edema 67333295 R60 .0 currently stable and no issue good pulses and no wounds Oral infection 450666794 K13.79 will chk lab to see if any residual infect Dysuria 40951422 R30.9 [id number] Jordan Rios DO [facility] [address] [facility],[place] [address] 11/28/2019 09:29:10 11/28/2019 10:25:13 Type 2 diabetes mellitus 22745657 E11.9 A1C elevated to 7.5 due to inactivity Weight stable, will work on losing weight and more exercise we are wondering whether he has an ongoing issue Essential hypertension [id number] I10 currently stable overall denies major sx no cp no sob Neuropathy due to diabetes mellitus 452880399 E11.40 stable and has not progressed Neck pain 02168968 M54.2 hurts to turn neck to the left most pain is on the left [id number] HAMILTON KELLY [facility] [address] [facility] [address] [address] 01/16/2020 11:33:30 01/16/2020 12:02:57 Pre-surgery evaluation [id number] Z01.818 based on exam and history the patient is cleared for surgery [id number] Jordan Rios DO [facility] [address] [facility] [address],[place] [address] 03/15/2020 08:46:20 03/15/2020 11:31:37 Essential hypertension 68038429 I10 currently stable overall checking bp overall is ok at home denies major sx no cp no sob Type 2 chris betes mellitus 06491627 E11.9 A1C is still elevated to 7.5 due to inactivity and was 7.5 last in august Weight stable, will work on losing weight and more exercise we are wondering whether he has an ongoing issue Neuropathy due to diabetes mellitus 229648395 E11.40 stable and has not progressed but had an issue on his toe right great toe has a darkened area on the nail relates he is treating area with home remedy no sx or visual evid of infection Onychomyco sis of toenails 534238301 B35.1 [id number] Jordan Rios DO [facility] [address] [facility] [address],[place] [address] 08/09/2020 14:55:34 08/09/2020 16:17:21 Essential hypertension 89405604 I10 currently stable overall checking bp overall is ok at home denies major sx no cp no sob Type 2 chris betes mellitus 69040674 E11.9 A1C is still elevated to 7.4 and was 7.5 due to inactivity and was 7.5 last in august Weight stable, will work on losing weight and more exercise we are wondering whether he has an ongoing issue Diabetic p eripheral neuropathy 611915563 E11.40 seems to be about the same but is noticing some burning at night [id number] Jordan Rios, DO [facility] [address] [facility],[place] [address] 11/15/2020 14:17:02 11/15/2020 15:03:35 Essential hypertension 19649713 I10 currently stable overall checking bp overall is ok at home denies major sx no cp no sob Type 2 chris betes mellitus 12245584 E11.9 A1C is better at 7.3 but was 7.4 and was 7.5 due to inactivity and was 7.5 last in august Weight stable, will work on losing weight and more exercise we are wondering whether he has an ongoing issue 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 and has not progressed [id number] Jordan Rios, [facility] Internal Medicine [address] [facility],[place] [address] 02/16/2021 13:25:10 02/16/2021 15:57:11 Type 2 diabetes mellitus 83119876 E11.9 A1C is better at 7.5 but was 7.3 7.4 and was 7.5 due to inactivity and was 7.5 last in august Weight stable, will work on losing weight and more exercise we are wondering whether he has an ongoing issue Essential hypertension 18165749 I10 currently stable overall checking bp overall is ok at home denies major sx no cp no sob Trigger fi nger of left hand [id number] 1046063 M65.30 getting worse and locking on him Basal cell carcinoma of skin 415801947 C44.91 Neuropathy due to diabetes mellitus 470274225 E11.40 stable and has not progressed Constipation 42947853 K5 9.00 to try metamucil as directed along with probiot as noted Dyspnea 852189999 R06.00 occurs when he lays down initially then he notices once he adjusts his pillow he feels betterhe does snore a lot Sleep apnea 32476457 G47 .30 very suspicious for NAZANIN we will get home study [id number] Jordan Rios DO [facility] [address] [facility] [address] [place] [address] 06/28/2021 15:31:15 06/28/2021 16:57:55 Neuropathy due to diabetes mellitus 301527261 E11.40 stable and has not progressed Essential hypertension 90780866 I10 currently stable overall checking bp overall is ok at home denies major sx no cp no sob Type 2 chris betes mellitus 36028287 E11.9 A1C is a bit worse at 7.8 and then at 7.5 but was 7.3 7.4 and was 7.5 due to inactivity and was 7.5 last in august Weight stable, will work on losing weight and more exercise we are wondering whether he has an ongoing issue Infection of toenail [id number] 3387342 B99.9 [id number] Jordan Rios DO [facility] [address] [facility],[place] [address] 09/20/2021 08:48:07 09/23/2021 09:24:19 Diverticulitis 082301009 K57.92 believe this is what we are seeingwe are going to stop the doxy as the lyme was neg mono was pos but not sure how this fitsaugmen tin will be used Essential hypertension 14525378 I10 currently stable overall checking bp overall is ok at home denies major sx no cp no sob Type 2 chris betes mellitus 10230574 E11.9 A1C is pending it was at 7.8 and then at 7.5 but was 7.3 7.4 and was 7.5 due to inactivity and was 7.5 last in august Weight stable, will work on losing weight and more exercise we are wondering whether he has an ongoing issue [id number] Jordan Rios DO [facility] [address] [facility] [address],[place] [address] 11/25/2021 10:37:45 11/25/2021 11:40:08 Type 2 diabetes mellitus 13102316 E11.9 A1C is at 7.8 and then at 7.5 but was 7.3 7.4 and was 7.5 due to inactivity and was 7.5 last in august Weight stable, will work on losing weight and more exercise we are wondering whether he has an ongoing issue Essential hypertension 87227480 I10 currently stable overall checking bp overall is ok at home denies major sx no cp no sob Depression screening 171 082825 Z13.31 PHQ2 normal today [id number] Jordan Rios [facility] [address] [facility],[place] [address] 02/27/2022 10:05:28 02/27/2022 10:48:52 Type 2 diabetes mellitus 90681287 E11.9 A1C is down to 7.1 and this is trulicity at 7.8 and then at 7.5 but was 7.3 7.4 and was 7.5 due to inactivity and was 7.5 last in august Weight stable, will work on losing weight and more exercise we are wondering whether he has an ongoing issue Essential hypertension 91256122 I10 currently stable overall checking bp overall is ok at home denies major sx no cp no sob Diverticulitis 267757592 K57.92 doing much better and is feeling good [id number] Jordan Rios [facility] [address] [facility],[address] [facility] [place] [address] 06/02/2022 10:57:41 06/02/2022 12:25:39 Type 2 diabetes mellitus 36279719 E11.9 A1C is down to 7.1 and prior was a1c of 7.1 and this is trulicity at 7.8 and then at 7.5 but was 7.3 7.4 and was 7.5 due to inactivity and was 7.5 last in august Weight stable, will work on losing weight and more exercise we are wondering whether he has an ongoing issue underlying given recent UTI Essential hypertension 55211600 I10 currently stable overall checking bp overall is ok at home denies major sx no cp no sob Neuropathy due to diabetes mellitus 268497768 E11.40 stable and has not progressed Pain in scrotum N50.82 will need a spec referral consider [place] Acute urin jhon tract infection 122495902 N39.0 has been treated so we will check Meralgia p aresthetica of right leg 7085871803 06776 G57.11 Tick bite 10330171 W57.X XXA [id number] Jordan Rios DO [facility] [address] [facility],[place] [address] 08/07/2022 11:52:13 08/08/2022 15:12:15 Type 2 diabetes mellitus 33903437 E11.9 A1C is down to 7.3 was 7.1 and prior was a1c of 7.1 and this is trulicity at 7.8 and then at 7.5 but was 7.3 7.4 and was 7.5 due to inactivity and was 7.5 last in august Weight stable, will work on losing weight and more exercise we are wondering whether he has an ongoing issue underlying given recent UTI Essential hypertension 39696890 I10 currently stable overall checking bp overall is ok at home denies major sx no cp no sob Acute urin jhon tract infection 767442200 N39.0 has been treated so we will check Gout 65737398 M10.9 discusses gout etiology and diet and allopurino l we will chke lab next visitand hope cont allopurino l for now Kidney stone 97423487 N2 0.0 quiet and is followed by urology needs psa [id number] Jordan Rios [facility] [address] [facility],[place] [address] 09/26/2022 14:01:46 09/26/2022 15:18:06 Type 2 diabetes mellitus 97971650 E11.9 A1C is down to 6.9 he was 7.3 was 7.1 and prior was a1c of 7.1 and this is trulicity at 7.8 and then at 7.5 but was 7.3 7.4 and was 7.5 due to inactivity and was 7.5 last in august Weight stable, will work on losing weight and more exercise we are wondering whether he has an ongoing issue underlying given recent scrotal discomfort Essential hypertension 36004335 I10 currently stable overall checking bp overall is ok at home denies major sx no cp no sob Advance care planning 71 1558582 Z71.89 utd Pain in scrotum 29907611 N50.82 [place] [id number] Jordan Rios [facility] [address] [facility] [address] 12/25/2022 10:50:19 12/25/2022 12:10:57 Essential hypertension 72550718 I10 currently stable overall checking bp overall is ok at home denies major sx no cp no sob Type 2 chris betes mellitus 67105854 E11.9 A1C is up to 7.3 he was 6.9 he was 7.3 was 7.1 7.5 last in has been c/o no energyWeig ht stable, will work on losing weight and more exercise we are wondering whether he has an ongoing issue underlying given recent scrotal discomfort Urinary bladder pain 158 00460 R39.82 Vitamin D deficiency 347 08665 E55.9 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 Fatigue 77641734 R53.83 [id number] Jordan Rios DO [facility] [address] [facility],[place] [address] 03/21/2023 08:59:40 03/21/2023 10:21:10 Type 2 diabetes mellitus 60690380 E11.9 A1C is up to 7.3 he was 6.9 he was 7.3 was 7.1 7.5 last in has been c/o no energyWeig ht stable, will work on losing weight and more exercise we are wondering whether he has an ongoing issue underlying given recent scrotal discomfort [id number] Jordan Rios DO [facility] [address] [facility],[place] [address] 05/29/2023 14:48:05 05/29/2023 16:08:28 Essential hypertension 21128586 I10 currently stable overall checking bp overall is ok at home denies major sx no cp no sob Type 2 chris betes mellitus 11289530 E11.9 A1C is 7.1 and prior to 6.9 to 7.3 he was 6.9 he was 7.3 was 7.1 7.5 last in has been c/o no energyWeig ht stable, will work on losing weight and more exercise we are wondering whether he has an ongoing issue underlying given recent scrotal discomfort Diverticul osis of colon 474465341 K57.30 quiet and doing good [id number] Jordan Rios DO [facility] [address] [facility],[address] [place] [address] 09/03/2023 13:27:46 09/03/2023 14:48:49 Adult health examination 825620496 Z00.00 here for recheck and is doing ok his exam is difficult due to his obesity Screening for cardiovascular system disease 359759484 Z13.6 here and doing well Screening for malignant neoplasm of colon 559307951 Z12.11 per gi appt Essential hypertension 53933640 I10 currently stable overall checking bp overall is ok at home denies major sx no cp no sob Hypercholesterolemia 136 65562 E78.00 Pain in testicle 4409156 9 N50.819 Pelvic and perineal pain 947606726 R10.2 [id number] Jordan Rios [facility] [address] [facility],[address] [place] [address] 12/26/2023 14:29:00 12/26/2023 15:08:11 Type 2 diabetes mellitus 38327531 E11.9 A1C is 7.2 was7.1 and prior to 6.9 to 7.3 he was 6.9he has been c/o no energyWeig ht stable, will work on losing weight and more exercise we are wondering whether he has an ongoing issue underlying given recent scrotal discomfort Essential hypertension 12691213 I10 currently stable overall checking bp overall is ok at home denies major sx no cp no sob Gout 02536572 M10.9 discusses gout etiology and diet and allopurino l we will chke lab next visitand hope cont allopurino l for now Claustrophobia 71721142 F40.240 Pelvic and perineal pain 559790952 R10.2 [id number] Jordan Rios [facility] [address] [facility] [address],[place] [address] 03/19/2024 13:18:33 03/19/2024 13:58:53 Depression screening 292876519 Z13.31 PHQ2 normal today Essential hypertension 51383044 I10 currently stable overall checking bp overall is ok at home denies major sx no cp no sob Type 2 chris betes mellitus 80779503 E11.9 A1C is 7.3 was7.2 was7.1 and prior to 6.9 to 7.3 he was 6.9he has been c/o no energyWeig ht stable, will work on losing weight and more exercise we are wondering whether he has an ongoing issue underlying given recent scrotal discomfort [id number] DO [facility] [address] [facility] [address],[place] [address] 06/11/2024 13:44:05 06/11/2024 14:22:39 Depression screening 589214157 Z13.31 PHQ2 normal today Essential hypertension 27599416 I10 currently stable overall checking bp overall is ok at home denies major sx no cp no sob Type 2 chris betes mellitus 24751040 E11.9 A1C is 7.5 was7.2 was7.1 and prior to 6.9 to 7.3 he was 6.9he has been c/o no energyWeig ht stable, will work on losing weight and more exercise we are wondering whether he has an ongoing issue underlying given recent scrotal discomfort Gout 84868366 M10.9 discusses gout etiology and diet and allopurino l we will chke lab next visitand hope cont allopurino l for now Vitamin D deficiency 347 60784 E55.9 stable check level next Disorder o f vitamin B12 250474516 E53.8 cont b12 Health Concerns Section Related Observation LastModified by Organization Detai ls LastModified Time None Recorded Concern Status LastModified by Organization Details LastModified Time None Recorded Advance Directives Directive None Recorded Payers Encounter Date Sequence Insurance Name Policy Number Policy Osorio Covered Member ID Osorio Member ID Guarantor Name 05/29/2023 2 [place] [id number] Yovany Mccarthy [id number] Yovany Zedonis 05/29/2023 1 [place] Yovany Mccarthy [id number] Yovany Zedonis 09/03/2023 2 [place] [id number] Yovany Mccarthy [id number] Yovany Zedonis 09/03/2023 1 [place] Yovany Mccarthy [id number] Yovany Zedonis 12/26/2023 2 [facility] [id number] Yovany Mcdonnellis [id number] Yovany Zedonis 12/26/2023 1 [place] Yovany Mcdonnellis [id number] Yovany Zedonis 03/19/2024 2 [place] [id number] Yovany Mcdonnellis [id number] Yovany Zedonis 03/19/2024 1 [place] Yovany Mcdonnellis [id number] Yovany Zedonis 06/11/2024 2 [facility] [id number] Yovany Phoenixdonis [id number] Yovany Zedonis 06/11/2024 1 [place] Yovany Mccarthy [id number] Yovany Zedonis Notes Date Note Type Note Provider Name and Address Organization Details Recorded Time 4 text/htm l Care Management - DiabetesReported bypatient.Self Care:seeing eye doctor yearly for dilated eye exam; checking feet regularly; normal range of home blood sugars (in the low 100s); no side effects from medications Associated Symptoms:symptoms are usually well controlled; no fatigue; no dizziness; no excessive sweating; no headaches; no confusion; no increased thirst; no increased appetite; no increased urination; no blurred vision; no numbness of feet; no calluses on feetCare Management - HypertensionReported bypatient.Self Care:not under emotional stress Severity:symptoms are improving; does not interfere with daily activities Associated Symptoms:no dizziness; no lightheadedness; no chest pain; no shortness of breath; no palpitations; no edema; no calf muscle cramps; no blurred vision; no confusion; no headaches; no fatigue here for rechk and is doing ok overallrelates having a little burning in feet Jordan Kaitlin Rios, DO [address] [facility], [place], [address], [facility] 05/29/2023 15:38:22 4 text/htm l Medicare Annual Wellness VisitReported bypatient.Diet and Nutrition:healthy diet Fracture Risk:no history of fractures; no recent explained fracture; no sudden unexplained fractures; no previous musculoskeletal injuries Physical Activity:exercises on a regular basis; recent increase in physical activity; good physical condition Depression Risk:never feels sad, empty, or tearful; no loss of interest in activities; no significant changes in weight; no sleep disturbances or insomnia; no agitation; no loss of energy; no feelings of worthlessness or guilt; no thoughts of suicide; no history of depression; no history of mood disorders Orientation:no disorientation to time; no disorientation to date; no disorientation to place Concentration and Memory:no decreased concentrating ability; no memory lapses or loss; does not forget words Speech/Motor difficulties:no speech difficulties; no difficulty expressing formulated concepts; no difficulty with fine manipulative tasks; no difficulty writing/copying; no slowed reaction time; does not knock things over when trying to pick them up Hearing:no loss of hearing Vision:no vision problems Activities of Daily Living:able to bathe with limited or no assistance; able to contol urination and bowels; able to dress with limited or no assistance; able to feed self with limited or no assistance; able to get out of chair or bed with limited or no assistance; able to groom with limited or no assistance; able to toilet with limited or no assistance Instrumental Activities of Daily Living:able to do house work with limited or no assistance; able to grocery shop with limited or no assistance; able to manage medications with limited or no assistance; able to manage money with limited or no assistance; able to prepare meals with limited or no assistance; able to use the phone with limited or no assistance Falls Risk Assessment:no frequent falls while walking; no fall in the past year; no fall since last visit; no dizziness/vertigo Home Safety:no unsafe dyan hazzards; no unsafe stairs; no unsafe gas appliances; working smoke/CO detectors; wears protective head gear for biking/high velocity; use of seatbelts; practicing 'safer sex'; no vision or hearing loss while driving; no fire arms; has hand bars in the bathroom/shower; good lighting in the home here for rechk a nd is doing okbut has not gotten any relief with PT Jordan Rios, DO [address] [place], [address], [facility] 09/03/2023 14:02:04 4 text/htm l here for rechkrelates had covid for 5 days a few weeks ago still fatigued Jordan Rios, DO [address] [place], [address], [facility] 12/26/2023 15:04:48 4 text/htm l Care Management - DiabetesReported bypatient.Self Care:seeing eye doctor yearly for dilated eye exam; checking feet regularly; normal range of home blood sugars (in the low 100s); no side effects from medications Associated Symptoms:symptoms are usually well controlled; no fatigue; no dizziness; no excessive sweating; no headaches; no confusion; no increased thirst; no increased appetite; no increased urination; no blurred vision; no numbness of feet; no calluses on feetCare Management - HypertensionReported bypatient.Self Care:not under emotional stress Severity:symptoms are improving; does not interfere with daily activities Associated Symptoms:no dizziness; no lightheadedness; no chest pain; no shortness of breath; no palpitations; no edema; no calf muscle cramps; no blurred vision; no confusion; no headaches; no fatigue Jordan Rios, DO [address] [place], [address], [facility] 12/26/2023 15:04:48 4 text/htm l Care Management - DiabetesReported bypatient.Self Care:seeing eye doctor yearly for dilated eye exam; checking feet regularly; normal range of home blood sugars (in the low 100s); no side effects from medications Associated Symptoms:symptoms are usually well controlled; no fatigue; no dizziness; no excessive sweating; no headaches; no confusion; no increased thirst; no increased appetite; no increased urination; no blurred vision; no numbness of feet; no calluses on feetCare Management - HypertensionReported bypatient.Self Care:not under emotional stress Severity:symptoms are improving; does not interfere with daily activities Associated Symptoms:no dizziness; no lightheadedness; no chest pain; no shortness of breath; no palpitations; no edema; no calf muscle cramps; no blurred vision; no confusion; no headaches; no fatigue here for rechk and relates that he is still doing well Jordan Rios DO [address] [place] [address], [address], [facility] 03/19/2024 13:57:11 5 text/htm l Care Management - DiabetesReported bypatient.Self Care:seeing eye doctor yearly for dilated eye exam; checking feet regularly; normal range of home blood sugars (in the low 100s); no side effects from medications Associated Symptoms:symptoms are usually well controlled; no fatigue; no dizziness; no excessive sweating; no headaches; no confusion; no increased thirst; no increased appetite; no increased urination; no blurred vision; no numbness of feet; no calluses on feet here for rechk and is doing ok [id number] is 7.5 and stable not exercising muchdid have a bout with gout a while ago Jordan Rios DO [address] [place], [address], [facility] 06/11/2024 14:09:06
[2024-07-01 14:03] LABS: Uric Acid 7.2 mg/dL (3.4-7.0)
== END 2024-07-01 10:36 | disposition home or self-care (01) ==
LOC: HO.MANLDS 10:35
PROVIDERS: Visit Provider Internal Medicine
DX: M10.9 Gout, unspecified (principal)
CPT/HCPCS: 36415; 84550

== ENCOUNTER 2024-09-17 15:24 | Outpatient (REF) | payer MEDICARE, SELFPAY ==
--- OUTSIDE RECORDS SUMMARY | 2024-09-17 17:40 | XMS_ITS | Data Portability ---
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) MDM MODERATE MUST MEET 2 OUT OF [...] COVERED Not available 03/19/2024 13:44:28 06/11/2024 06/11/2024 [id number] [place] [id number] (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) [facility] MODERATE MUST MEET 2 OUT OF 3 [...] uric acid, serum or plasma 2024 025 [facility], [address] [place] [address], [address], 07/02/2024 12:48:46 C reactive protein, QN, serum or plasma 2023 024 [facility], [address] [place] [address], [address], 09/03/2023 14:00:55 ESR (erythroc yte sedimenta tion rate), blood 2023 024 [facility], [address] [place] [address], [address], 09/03/2023 14:00:55 hemoglobi n, gastroint estinal, stool 2023 024 [facility], [address] [place] [address], [address], 09/03/2023 14:00:54 CBC w/ auto diff 2023 024 [facility], [address] [place] [address], [address], 09/04/2023 11:28:29 CMP, serum or plasma 2023 024 [facility], [address] [place] [address], [address], 09/04/2023 11:28:29 Referral None recorded. Procedures None recorded. Surgeries None recorded. Imaging MRI, pelvis, w/o contrast 2023 024 [facility], [address], [address], 01/22/2024 08:29:20 MRI, pelvis, w/o contrast 2023 [facility]24 [facility], [address] [place], [address], 10/29/2023 08:10:10 Medication Orders lorazepam 1 mg tablet 2023 [email or web address] [facility], [address] [place], [address], 06/11/2024 13:45:56 rosuvasta tin 5 mg tablet 2023 [facility], [address] [place], [address], 09/03/2023 13:52:35 lisinopri l 5 mg tablet 2023 [facility], [address] [place], [address], 09/03/2023 13:52:35 Patient TargetsNo targets recorded. Patient Instructions Encounter Date Encounter Id Patient Instructions Last Modified By Organization Details Last Modified Time 09/03/2023 [id number] testicular pain: care instructions Not available 09/03/2023 13:52:32 advance care planning: care instructions Not available 09/03/2023 13:52:32 Discussed and explained advance directives such as standard forms to the patient. Face to face discussion lasted for a duration of _10_ minutes. Not available 09/03/2023 13:58:24 12/26/2023 [id number] gout: care instructions Not available 12/26/2023 15:02:29 learning about type 2 diabetes Not available 12/26/2023 15:02:29 type 2 diabetes: care instructions Not available 12/26/2023 15:02:29 06/11/2024 [id number] gout: care instructions Not available 06/11/2024 14:07:02 [...] A1c), blood A1C 7.5 abnormal Not Available [facility] [address], [place], [address], 06/09/2024 14:26:38 02/05/20 24 02/05/2024 MRI, pelvi s, w/o contr ast No observ ation record ed. [facility] [address] [address], [place], [address], 03/19/2024 13:43:14 Result Notes None recorded. 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 9107 Active 2020 Jordan Madrigal Chacortaisauro, DO [address] [place] [address], [id number], [facility] 1 15:35:45 Diverticu litis 022238930 Active 2021 Shelley banda [facility] 5 08:37:25 Anaplasmo sis 34078619 Active 2021 Shelley banda [facility] 5 08:37:25 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 Shelley banda [facility] 5 08:37:25 Type 2 diabetes mellitus 98787860 Active 2017 Shelley banda [facility] 5 08:37:25 Neuropath y due to diabetes mellitus 219822231 Active 2017 [facility] 5 08:37:25 Ankle edema 80373544 Active 2017 [facility] 5 08:37:25 Sprain of ankle 70295721 Active 2017 [facility] 5 08:37:03 Essential hypertens ion 27489201 Active 2017 [facility]ve [facility] 5 08:37:25 Obesity 171794376 Active 2017 [facility] 5 08:37:25 Pain in scrotum 86762532 Active 2022 [facility] 5 08:37:03 Acute urinary tract infection 388201561 Active 2022 Shelley [facility] 5 08:37:03 Meralgia paresthet ica of right leg 503180258824 108 Active 2022 [facility] 5 08:37:25 Dysuria 46150168 Active 2022 [facility] 5 08:37:25 Gout 71049235 Active 2022 [facility] 5 08:37:25 Urinary bladder pain 39374327 Active 2022 Shelley [facility] 5 08:37:25 Vitamin D deficienc y 81974020 Active 2022 [facility] 5 08:37:25 Disorder of vitamin B12 923522099 Active 2022 [facility] 5 08:37:25 Fatigue 56200045 Active 2022 Shelley Noah banda [facility] 5 08:37:03 Paronychi a of toe 539070314 Active 2022 [facility] 5 08:37:03 Diverticu losis of colon 414045736 Active 2023 [facility] 5 08:37:25 Pain in testicle 34146000 Active 2023 [facility] 5 08:37:03 Pelvic and perineal pain 718016502 Active 2023 [facility] 5 08:37:03 Claustrop hobia 99250543 Active 2023 [facility] 5 08:37:25 Prostatit is 2903553 Active 2023 [facility] 5 08:37:25 Problem Notes None recorded. Procedures Surgical History Date Name Laterality Status Provider Name and Address Organization Details Recorded Time 8 Colonoscopy completed Dottie Robertson [facility] 01/07/2019 10:43:08 0 Colonoscopy completed Anny Cook [facility] 03/18/2018 10:14:53 Imaging Results None recorded. Procedure Notes None recorded. Medical Equipment None [...] TAKE 1 TABLET BY MOUTH EVERY DAY 07/02 completed Not Available Not Available Not Available ciprofloxac in 500 mg tablet TAKE 1 [...] TAKE ONE TABLET BY MOUTH ONCE DAILY 2024 active Not Available Not Available Not Avai lable indomethaci n 25 mg capsule 08/07 completed Not Available Not Available Not Available allopurinol 300 mg tablet Take 1 tablet every day by oral route for 30 days. 2024 active Not Available Not Available Not Avai lable lisinopril 5 mg tablet TAKE ONE TABLET [...] completed Not Available Not Available Not Available [employer] Verio test strips USE TO TEST BLOOD [...] INJECT 1MG SUBCUTANE OUSLY ONCE EVERY WEEK 2024 active Not Available Not Available Not Avai lable Vitals Date Recorded Body height Body mass index (BMI) Body weight Heart rate Oxygen saturation Oxygen saturation in Arterial blood by Pulse oximetry Systolic blood pressure Diastolic blood pressure Provider Name and Address Organization Details Last Updated DateTime 4 186.06 cm 33.4 kg/m2 931292. 05 g 80 /min 97 % 97 % 152 mm[Hg] 80 mm[Hg] Jordan Rios, DO [address] [place], [address] [place] [address] Internal Medicine 4 14:54:25 Date Recorded Body height Body mass index (BMI) Body weight Heart rate Oxygen saturation Oxygen saturation in Arterial blood by Pulse oximetry Systolic blood pressure Diastolic blood pressure Provider Name and Address Organization Details Last Updated DateTime 5 186.06 cm 32.9 kg/m2 876685. 68 g 75 /min 99 % 99 % 146 mm[Hg] 80 mm[Hg] Shelley Zamora [facility] 5 13:50:51 Date Recorded Body height Body mass index (BMI) Body weight Heart rate Oxygen saturation Oxygen saturation in Arterial blood by Pulse oximetry Systolic blood pressure Diastolic blood pressure Provider Name and Address Organization Details Last Updated DateTime 4 186.06 cm 32.7 kg/m2 520288. 66 g 75 /min 96 % 96 % 128 mm[Hg] 74 mm[Hg] Shelley Zamora [facility] 4 13:34:54 Date Recorded Body height Body mass index (BMI) Body weight Heart rate Oxygen saturation Oxygen saturation in Arterial blood by Pulse oximetry Systolic blood pressure Diastolic blood pressure Provider Name and Address Organization Details Last Updated DateTime 4 186.06 cm 33 kg/m2 750111. 28 g 77 /min 98 % 98 % 144 mm[Hg] 80 mm[Hg] Gena Strong [facility] 4 14:34:21 Date Recorded Body height Body mass index (BMI) Body weight Heart rate Oxygen saturation Oxygen saturation in Arterial blood by Pulse oximetry Systolic blood pressure Diastolic blood pressure Provider Name and Address Organization Details Last Updated DateTime 4 186.06 cm 32.5 kg/m2 403623. 91 g 82 /min 94 % 94 % 138 mm[Hg] 78 mm[Hg] Yovany Long [facility] 4 13:38:00 Social History Question Answer Notes LastModified by Organizat ion Details LastModified Time Tobacco Smoking Status Never Smoker Not Available [facility] 02/03/2020 03:36:23 What Was The Date Of Your Most Recent Tobacco Screening? 06/11/2024 [email or web address] Information not available 06/11/2024 Sex: Unknown Functional Status Question Answer Note LastModified by Organization D etails LastModified Time Do you or have you ever used any other forms of tobacco or nicotine? No Information not available 06/02/2022 Mental Status None recorded. Family History Nothing Reported. Medical History No medical history recorded. Immunizations Vaccine Type Date Status Note Provider Nam e and Address Organization Details Recorded Time COVID-19, mRNA, LNP-S, PF, 30 mcg/0.3 mL dose 03/07/2021 completed Not Available [facility] 3 16:38:46 COVID-19, mRNA, LNP-S, PF, 30 mcg/0.3 mL dose 07/02/2020 completed Not Available [facility] 3 16:38:46 COVID-19, mRNA, LNP-S, PF, 30 mcg/0.3 mL dose 07/24/2020 completed Not Available [facility] 3 16:38:46 Past Encounters Encounter ID Performer Location Encounter Start Date Encounter Closed Date Diagnosis/Indication Diagnosis SNOMED-CT Code Diagnosis ICD10 Code Diagnosis Note [id number] Jordan Rios [facility] Internal [facility] [address] [facility], [place] [address] 09/05/2017 09:52:19 09/05/2017 11:04:34 Type 2 diabetes mellitus 35841121 E11.9 doing well overall doing a good diet and is feeling well with some wgt loss Essential hypertension 00048181 I10 [id number] Jordan Rios DO [facility] Internal [facility] [address] [facility],[place] [address] 12/19/2017 10:03:21 12/19/2017 11:32:01 Type 2 diabetes mellitus 01654434 E11.9 doing ok overall doing a good diet and is feeling well with some wgt loss Essential hypertension 35689406 I10 currently stable overall Adult [facility] th examination 334807129 Z00.00 discussed lab in detail Screening for cardiovascular system disease 642845350 Z13.6 here and doing well Screening for malignant neoplasm of colon 528728729 Z12.11 per gi appt Constipation 86665087 K5 9.00 to try metamucil as directed along with probiot [id number] Jordan Rios [facility] [address] [facility],[place] [address] 03/18/2018 09:57:59 03/18/2018 10:48:06 Essential hypertension 96713752 I10 currently stable overall Type 2 chris betes mellitus 60887594 E11.9 doing ok overall but needs to get back on track with eating better will get back to walking etc rechk in 3 mo Hepatitis C screening 41 8916252 Z11.59 next lab draw [id number] Jordan Rios [facility] [address] [facility] [address],[place] [address] 06/25/2018 09:42:49 06/25/2018 10:44:20 Adult health examination 696185517 Z00.00 here for recheck and is doing ok his exam is difficult due to his obesity Active or passive immunization 630009509 Z23 Type 2 chris betes mellitus 45620669 E11.9 doing ok overall but needs to get back on track with eating better a1c is 7.1 and is elevated now will get back to walking etc MUST DO THIS rechk in 3 mo a long discussion re need to lose the wgt he gained and to get his sugars down Essential hypertension 01181684 I10 currently stable overall [id number] Jordan Rios [facility] [address] [facility],[place] [address] 09/30/2018 14:02:36 09/30/2018 15:17:49 Essential hypertension 90244762 I10 currently stable overall denies major sx no cp no sob Type 2 chris betes mellitus 90203351 E11.9 doing ok overall but needs to get back on track with eating better a1c is 7.1 and is the same as in may will get back to walking etc MUST DO THIS rechk in 3 mo a long discussion re need to lose the wgt he gained and to get his sugars down [id number] Jordan Rios [facility] [address] [facility],[place] [address] 01/07/2019 10:28:10 01/07/2019 11:35:43 Diverticulosis of sigmoid colon 533127702 K57.[address] of abdomen discussed with MB recommend cipro 500 mg bid x 10 days reaction to flagyl hasn't done well with augmentin in the past Diarrhea 53604790 R19.7 Type 2 chris betes mellitus 96749585 E11.65 Essential hypertension 89813061 I10 [id number] Jordan Rios [facility] [address] [facility],[place] [address] 01/17/2019 13:57:12 01/17/2019 14:54:27 Type 2 diabetes mellitus 63860534 E11.9 doing ok overall but needs to get back on track with eating better a1c is 6.9 was 7.1 and is the same as in may will get back to walking and needs to start agian ivaank in 3 mo a long discussion re need to lose the wgt he gained and to get his sugars down Neuropathy due to diabetes mellitus 823781370 E11.40 about the same no major issues Essential hypertension 42275072 I10 currently stable overall denies major sx no cp no sob Traveler's diarrhea 1184 0006 A04.1 [id number] Jordan Rios [facility] Internal Medicine [address] [facility] [address] [address] 05/07/2019 09:50:32 05/07/2019 10:46:06 Type 2 diabetes mellitus 22869280 E11.9 A1C elevated to 7.2 due to inactivity after teeth pulling Weight stable, will work on losing weight and more exercise Essential hypertension 20554377 I10 currently stable overall denies major sx no cp no sob Neuropathy due to diabetes mellitus 010227288 E11.40 stable [id number] Jordan Rios, [facility] [address] [facility] [address],[place] [address] 09/03/2019 09:05:30 09/03/2019 10:02:59 Neuropathy due to diabetes mellitus 254814411 E11.40 stable and has not progressed Essential hypertension 37026392 I10 currently stable overall denies major sx no cp no sob Type 2 chris betes mellitus 08592395 E11.9 A1C elevated to 7.5 due to inactivity Weight stable, will work on losing weight and more exercise we are wondering whether he has an ongoing issue Kidney stone 85990916 N2 0.0 quiet and is followed by urology needs psa Ankle edema 12709779 R60 .0 currently stable and no issue good pulses and no wounds Oral infection 558380346 K13.79 will chk lab to see if any residual infect Dysuria 14894096 R30.9 [id number] Jordan Rios [facility] Medicine [address] [facility] [address],[place] [address] 11/28/2019 09:29:10 11/28/2019 10:25:13 Type 2 diabetes mellitus 40173747 E11.9 A1C elevated to 7.5 due to inactivity Weight stable, will work on losing weight and more exercise we are wondering whether he has an ongoing issue Essential hypertension 40098018 I10 currently stable overall denies major sx no cp no sob Neuropathy due to diabetes mellitus 281047676 E11.40 stable and has not progressed Neck pain 62336046 M54.2 hurts to turn neck to the left most pain is on the left [id number] Jordan Rios [facility] [address] [facility] [address],[place] [address] 01/16/2020 11:33:30 01/16/2020 12:02:57 Pre-surgery evaluation 589794763 Z01.818 based on exam and history the patient is cleared for surgery [id number] Jordan Rios [facility] [address] [facility],[place] [address] 03/15/2020 08:46:20 03/15/2020 11:31:37 Essential hypertension 39196498 I10 currently stable overall checking bp overall is ok at home denies major sx no cp no sob Type 2 chris betes mellitus 07372432 E11.9 A1C is still elevated to 7.5 due to inactivity and was 7.5 last in august Weight stable, will work on losing weight and more exercise we are wondering whether he has an ongoing issue Neuropathy due to diabetes mellitus 851096925 E11.40 stable and has not progressed but had an issue on his toe right great toe has a darkened area on the nail relates he is treating area with home remedy no sx or visual evid of infection Onychomyco sis of toenails 196357261 B35.1 [id number] Jordan Rios [facility] [address] [facility] [address],[place] [address] 08/09/2020 14:55:34 08/09/2020 16:17:21 Essential hypertension 27845904 I10 currently stable overall checking bp overall is ok at home denies major sx no cp no sob Type 2 chris betes mellitus 90489132 E11.9 A1C is still elevated to 7.4 and was 7.5 due to inactivity and was 7.5 last in august Weight stable, will work on losing weight and more exercise we are wondering whether he has an ongoing issue Diabetic p eripheral neuropathy 747745884 E11.40 seems to be about the same but is noticing some burning at night [id number] Jordan Rios DO [facility] Internal Medicine [address] [facility],[place] [address] 11/15/2020 14:17:02 11/15/2020 15:03:35 Essential hypertension 34854084 I10 currently stable overall checking bp overall is ok at home denies major sx no cp no sob Type 2 chris betes mellitus 97251008 E11.9 A1C is better at 7.3 but was 7.4 and was 7.5 due to inactivity and was 7.5 last in august Weight stable, will work on losing weight and more exercise we are wondering whether he has an ongoing issue Neuropathy due to diabetes mellitus 354274731 E11.40 stable and has not progressed [id number] Jordan Rios DO [facility] Internal Medicine [address] [facility],[place] [address] 02/16/2021 13:25:10 02/16/2021 15:57:11 Type 2 diabetes mellitus 20101894 E11.9 A1C is better at 7.5 but was 7.3 7.4 and was 7.5 due to inactivity and was 7.5 last in august Weight stable, will work on losing weight and more exercise we are wondering whether he has an ongoing issue Essential hypertension 41317214 I10 currently stable overall checking bp overall is ok at home denies major sx no cp no sob Trigger fi nger of left hand 5003180150 1493610 M65.30 getting worse and locking on him Basal cell carcinoma of skin 401238933 C44.91 Neuropathy due to diabetes mellitus 002633777 E11.40 stable and has not progressed Constipation 32497673 K5 9.00 to try metamucil as directed along with probiot as noted Dyspnea 121982272 R06.00 occurs when he lays down initially then he notices once he adjusts his pillow he feels betterhe does snore a lot Sleep apnea 03131895 G47 .30 very suspicious for NAZANIN we will get home study [id number] Jordan Rios DO [facility] [address] [facility] [address],[place] [address] 06/28/2021 15:31:15 06/28/2021 16:57:55 Neuropathy due to diabetes mellitus 658923990 E11.40 stable and has not progressed Essential hypertension 48167880 I10 currently stable overall checking bp overall is ok at home denies major sx no cp no sob Type 2 chris betes mellitus 85166063 E11.9 A1C is a bit worse at 7.8 and then at 7.5 but was 7.3 7.4 and was 7.5 due to inactivity and was 7.5 last in august Weight stable, will work on losing weight and more exercise we are wondering whether he has an ongoing issue Infection of toenail 675 0754101 3695139 B99.9 [id number] Jordan Rios, [facility] [address] [facility],[place] [address] 09/20/2021 08:48:07 09/23/2021 09:24:19 Diverticulitis 448569191 K57.92 believe this is what we are seeingwe are going to stop the doxy as the lyme was neg mono was pos but not sure how this fitsaugmen tin will be used Essential hypertension 32295903 I10 currently stable overall checking bp overall is ok at home denies major sx no cp no sob Type 2 chris betes mellitus 24847221 E11.9 A1C is pending it was at 7.8 and then at 7.5 but was 7.3 7.4 and was 7.5 due to inactivity and was 7.5 last in august Weight stable, will work on losing weight and more exercise we are wondering whether he has an ongoing issue [id number] Jordan Rios, [facility] [address] [facility] [address],[place] [address] 11/25/2021 10:37:45 11/25/2021 11:40:08 Type 2 diabetes mellitus 17671210 E11.9 A1C is at 7.8 and then at 7.5 but was 7.3 7.4 and was 7.5 due to inactivity and was 7.5 last in august Weight stable, will work on losing weight and more exercise we are wondering whether he has an ongoing issue Essential hypertension 42169340 I10 currently stable overall checking bp overall is ok at home denies major sx no cp no sob Depression screening 171 742904 Z13.31 PHQ2 normal today [id number] Jordan Rios DO [facility] Internal Medicine [address] [facility],[place] [address] [facility] [place] [address] 02/27/2022 10:05:28 02/27/2022 10:48:52 Type 2 diabetes mellitus 55129116 E11.9 A1C is down to 7.1 and this is trulicity at 7.8 and then at 7.5 but was 7.3 7.4 and was 7.5 due to inactivity and was 7.5 last in august Weight stable, will work on losing weight and more exercise we are wondering whether he has an ongoing issue Essential hypertension 26258317 I10 currently stable overall checking bp overall is ok at home denies major sx no cp no sob Diverticulitis 192306652 K57.92 doing much better and is feeling good [id number] Jordan Rios DO [facility] Internal Medicine [address] [facility],[place] [address] [facility] [place] [address] 06/02/2022 10:57:41 06/02/2022 12:25:39 Type 2 diabetes mellitus 26342374 E11.9 A1C is down to 7.1 and prior was a1c of 7.1 and this is trulicity at 7.8 and then at 7.5 but was 7.3 7.4 and was 7.5 due to inactivity and was 7.5 last in august Weight stable, will work on losing weight and more exercise we are wondering whether he has an ongoing issue underlying given recent UTI Essential hypertension 01791886 I10 currently stable overall checking bp overall is ok at home denies major sx no cp no sob Neuropathy due to diabetes mellitus 753575021 E11.40 stable and has not progressed Pain in scrotum N50.82 will need a spec referral consider [place] Acute urin jhon tract infection 162099078 N39.0 has been treated so we will check Meralgia p aresthetica of right leg 7555125291 15499 G57.11 Tick bite 22939761 W57.X XXA [id number] Jordan Rios [facility] [facility] [address] [facility],[place] [address] 08/07/2022 11:52:13 08/08/2022 15:12:15 Type 2 diabetes mellitus 26697269 E11.9 A1C is down to 7.3 was [...] issue underlying given recent UTI Essential hypertension 87214005 I10 currently stable overall checking bp overall is ok at home denies major sx no cp no sob Acute urin jhon tract infection [id number] N39.0 has been treated so we will check Gout 49153118 M10.9 discusses gout etiology and diet and allopurino l we will chke lab next visitand hope cont allopurino l for now Kidney stone 88106590 N2 0.0 quiet and [place] psa [id number] Jordan Rios [facility] Internal Medicine [address] [facility],[place] [facility] [place] [address] 09/26/2022 14:01:46 09/26/2022 15:18:06 Type 2 diabetes mellitus 05076739 E11.9 A1C is down to 6.9 he [...] underlying given recent scrotal discomfort Essential hypertension 32765395 I10 currently stable overall checking bp overall is ok at home denies major sx no cp no sob Advance care planning 71 1037997 Z71.89 utd Pain in scrotum 05374060 N50.82 [place] [id number] Jordan Rios [facility] Internal Medicine [address] [facility],[place] [address] 12/25/2022 10:50:19 12/25/2022 12:10:57 Essential hypertension 74108722 I10 currently stable overall checking bp overall is ok at home denies major sx no cp no sob Type 2 chris betes mellitus 82953658 E11.9 A1C is up to 7.3 he was 6.9 he was 7.3 was 7.1 7.5 last in has been c/o no energyWeig ht stable, will work on losing weight and more exercise we are wondering whether he has an ongoing issue underlying given recent scrotal discomfort Urinary bladder pain 158 36941 R39.82 Vitamin D deficiency 347 33067 E55.9 Disorder o f vitamin B12 246862066 E53.8 Fatigue 12806586 R53.83 [id number] Jordan Rios [facility] Internal Medicine [address] [facility], [place] [address] 03/21/2023 08:59:40 03/21/2023 10:21:10 Type 2 diabetes mellitus 16177746 E11.9 A1C is up to 7.3 he was 6.9 he was 7.3 was 7.1 7.5 last in has been c/o no energyWeig ht stable, will work on losing weight and more exercise we are wondering whether he has an ongoing issue underlying given recent scrotal discomfort [id number] Jordan Rios [facility] Internal Medicine [address] [facility],[place] [address] 05/29/2023 14:48:05 05/29/2023 16:08:28 Essential hypertension 94874136 I10 currently stable overall checking bp overall is ok at home denies major sx no cp no sob Type 2 chris betes mellitus 94495478 E11.9 A1C is 7.1 and prior to 6.9 to 7.3 he was 6.9 he was 7.3 was 7.1 7.5 last in has been c/o no energyWeig ht stable, will work on losing weight and more exercise we are wondering whether he has an ongoing issue underlying given recent scrotal discomfort Diverticul osis of colon 299089574 K57.30 quiet and doing good [id number] Jordan Rios [facility] Internal Medicine [address] [facility], [place] [address] 09/03/2023 13:27:46 09/03/2023 14:48:49 Adult health examination [id number] Z00.00 here for recheck and is doing ok his exam is difficult due to his obesity Screening for cardiovascular system disease 107603655 Z13.6 here and doing well Screening for malignant neoplasm of colon 510234387 Z12.11 per gi appt Essential hypertension 80525536 I10 currently stable overall checking bp overall is ok at home denies major sx no cp no sob Hypercholesterolemia 136 45382 E78.00 Pain in testicle 2925102 9 N50.819 Pelvic and perineal pain 437045648 R10.2 [id number] Jordan Rios [facility] Internal Medicine [address] [facility], [place] [address] 12/26/2023 14:29:00 12/26/2023 15:08:11 Type 2 diabetes mellitus 19574358 E11.9 A1C is 7.2 was7.1 and prior to 6.9 to 7.3 he was 6.9he has been c/o no energyWeig ht stable, will work on losing weight and more exercise we are wondering whether he has an ongoing issue underlying given recent scrotal discomfort Essential hypertension 85537318 I10 currently stable overall checking bp overall is ok at home denies major sx no cp no sob Gout 26904062 M10.9 discusses gout etiology and diet and allopurino l we will chke lab next visitand hope cont allopurino l for now Claustrophobia 73274036 F40.240 Pelvic and perineal pain 387753319 R10.2 [id number] Jordan Rios [facility] Internal Medicine [address] [facility] [place] [address] 03/19/2024 13:18:33 03/19/2024 13:58:53 Depression screening 184729858 Z13.31 PHQ2 normal today Essential hypertension 90832663 I10 currently stable overall checking bp overall is ok at home denies major sx no cp no sob Type 2 chris betes mellitus 16924454 E11.9 A1C is 7.3 was7.2 was7.1 and prior to 6.9 to 7.3 he was 6.9he has been c/o no energyWeig ht stable, will work on losing weight and more exercise we are wondering whether he has an ongoing issue underlying given recent scrotal discomfort [id number] DO [facility] [address] [facility] [address],[place] [address] 06/11/2024 13:44:05 06/11/2024 14:22:39 Depression screening 778552525 Z13.31 PHQ2 normal today Essential hypertension 49738064 I10 currently stable overall checking bp overall is ok at home denies major sx no cp no sob Type 2 chris betes mellitus 18886056 E11.9 A1C is 7.5 was7.2 was7.1 and prior to 6.9 to 7.3 he was 6.9he has been c/o no energyWeig ht stable, will work on losing weight and more exercise we are wondering whether he has an ongoing issue underlying given recent scrotal discomfort Gout 80861068 M10.9 discusses gout etiology and diet and allopurino l we will chke lab next visitand hope cont allopurino l for now Vitamin D deficiency 347 67679 E55.9 stable check level next 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 b12 Health Concerns Section Related Observation LastModified by Organization Detai ls LastModified Time None Recorded Concern Status LastModified by Organization Details LastModified Time None Recorded Advance Directives Directive None Recorded Payers Insurance Date Sequence Insurance Name Policy Number Policy Osorio Covered Member ID Osorio Member ID Guarantor Name 06/11/2024 2 [place] [id number] Yovany Mccarthy [id number] Yovany Mccarthy 09/06/2024 1 [place] [employer] Yovany Mccarthy [id number] Yovany Mccarthy Notes Date Note Type Note Provider Name [...] having a little burning in feet Jordan AmritaAllen Rios, DO [address] [facility], [place], [address], BR[facility]NA[facility] Internal Medicine 05/29/2023 15:38:22 4 text/htm l [...] last visit; no dizziness/vertigo Home Safety:no unsafe dayn hazzards; no unsafe stairs; no unsafe gas appliances; working smoke/CO detectors; wears protective head gear for biking/high velocity; use of seatbelts; practicing 'safer sex'; no vision or hearing loss while driving; no fire arms; has hand bars in the bathroom/shower; good lighting in the home here for rechk a nd is doing okbut has not gotten any relief with PT Jordan Rios DO [address] [place] [address], [address], [facility] Internal Medicine 09/03/2023 14:02:04 4 text/htm l here for rechkrelates had covid for 5 days a few weeks ago still fatigued Jordan Rios DO [address] [place], [address], [facility] Internal Medicine 12/26/2023 15:04:48 4 [...] no confusion; no headaches; no fatigue Jordan Rios DO [address] [place], [address], [facility] Internal Medicine 12/26/2023 15:04:48 4 [...] is still doing well Jordan Rios DO [address] [place], [address], [facility] Internal Medicine 03/19/2024 13:57:11 5 [...] here for rechk and is doing ok [id number] is 7.5 and stable not exercising muchdid have a bout with gout a while ago Jordan Rios DO [address] [place], [address], [facility] Internal Medicine 06/11/2024 14:09:06
[2024-09-18 07:18] LABS: Estimated Average Glucose 166 mg/dL; Hemoglobin A1c % 7.4 % (<6.0)
== END 2024-09-17 15:25 | disposition home or self-care (01) ==
LOC: HO.MANLDS 15:24
PROVIDERS: Visit Provider Internal Medicine
DX: E11.9 Type 2 diabetes mellitus without complications (principal)
CPT/HCPCS: 36415; 83036

== ENCOUNTER 2024-12-22 15:50 | Outpatient (REF) | payer MEDICARE, SELFPAY ==
--- OUTSIDE RECORDS SUMMARY | 2024-12-22 18:01 | XMS_ITS | Encounter Summary ---
Author Organization [place] [id number]
[2024-12-23 07:19] LABS: Hemoglobin A1C 199.8518 umol/L; Total Hemoglobin (HGBA1C) 3193.6422 umol/L
== END 2024-12-22 15:51 | disposition home or self-care (01) ==
LOC: HO.MANLDS 15:50
PROVIDERS: Visit Provider Internal Medicine
DX: E11.9 Type 2 diabetes mellitus without complications (principal)
CPT/HCPCS: 36415; 83036

== ENCOUNTER 2024-12-24 12:15 | Outpatient (REF) | payer MEDICARE, SELFPAY ==
--- OUTSIDE RECORDS SUMMARY | 2024-12-24 14:56 | XMS_ITS | Encounter Summary ---
Author Organization [facility] Address [address] [place] [address] [place] [address] Phone Care Team Providers Care Computational Chemist Name Role Phone Jordan Trevino Primary Care Provider [phone] Encounter Details Date Type Department Care Team (Late Contact Info) Description 09/16/2021 Procedure Pass [facility], Ct Scan - [address] [address] Social History Tobacco Use Types Packs/Day Years Used Date Smoking Tobacco: Never Smokeless Tobacco: Never Alcohol Use Standard Drinks/Week Comments Yes 1 (1 standard drink = 0.6 oz pur e alcohol) occasional Sex and Gender Information Value Date Recorded Sex Assigned at Not on file Legal Sex Male 10:06 PM EDT Gender Identity Not on file Sexual Orientation Not on file documented as of this encounter Functional Status * Calculated C-SSRS Risk Score (Lifetime/Recent) Answer Date of Assessment Author No Risk Indicated 09/16/2021 7:43 PM EDT Jayesh Mott RN * [place] Suicide Severity Rating Scale (Screener/Recent Self-Report) Question Answer Date of Assessment Author 1. Wish to be (Past 1 Month) No 022 7:43 PM EDT Jayesh Mott, RN 2. Non-Specific Active Suici rina Thoughts (Past 1 Month) No 09/16/2021 7:43 PM EDT Jayesh Mott, RN documented as of this encounter Plan of Treatment Upcoming Encounters Date Type Department Care Team (Late st Contact Info) Description 03/30/2025 Procedure Pass [facility] Admitting [facility] Virtual Department [address] [place] [address] 03/30/2025 10:15 AM EST Hospital Encounter [facility] Admitting [facility] Virtual Department [address] [place] [address] Isiah Randhawa MD [address] [address] [email or web address] 03/30/2025 10:15 AM EST - 03/30/2025 10:30 AM EST Surgery [facility] Admitting Dept Virtual Department [address] [place] [address] Isiah Randhawa MD [address] [address] [email or web address] COLONOSCOPY Scheduled Procedures Name Priority Associated Diagnoses Date/Ti me COLONOSCOPY History of colonic polyps 03/30/2025 10:15 AM EST documented as of this encounter Visit Diagnoses Not on filedocumented in this encounter Additional Health Concerns Infection Onset Date Last Indicated Resolved Time CoV-Risk 09/17/2021 09/17/2021 09/28/2021 1:22 AM EDT documented as of this encounter Care Teams Computational Chemist Relationship Specialty Start Date End Date Jordan Trevino DO [email or web address] PCP - General Internal Medicine 02/05/17 documented as of this encounter Additional Source Comments The information contained in this document represents components of the legal health record. It is not the complete legal health record.[facility]
--- OUTSIDE RECORDS SUMMARY | 2024-12-24 14:56 | XMS_ITS | Clinical Summary ---
Author Organization [facility] Address [address] [place] [address] Phone Care Team Providers Care Solar Installation Crew Supervisor Name Role Phone Jordan Trevino Primary Care Provider [phone] Allergies No known active allergies Medications ONETOUCH VERIO Strp strips USE TO TEST BLOOD SUGAR THREE TIMES DAILY 1 Active lisinopril (PRINIVIL,ZESTR IL) 5 MG tablet Take 5 mg by mouth. 1 Active metFORMIN (FORTAMET) 1000 MG (OSM) 24 hr tablet Take 1,000 mg by mouth daily with dinner. Active mupirocin (BACTROBAN) 2 % ointment APPLY SMALL AMOUNT TOPICALLY TO THE AFFECTED AREA THREE TIMES DAILY 2 Active indomethacin (INDOCIN) 25 MG capsule Take 1 capsule (25 mg total) by mouth 2 (two) times a day with meals. 20 capsule 3 Active Active Problems Problem Noted Date Diagnosed Date Type 2 diabetes mellitus 09/16/2021 Chronic kidney disease (CKD) Immunizations No known immunizations Social History Tobacco Use Types Packs/Day Years Used Date Smoking Tobacco: Never Smokeless Tobacco: Never Alcohol Use Standard Drinks/Week Comments Yes 1 (1 standard drink = 0.6 oz pur e alcohol) occasional Education Answer Date Recorded Are you interested in more education? Not on sameer e 07/28/2022 Are you concerned about learning? Not on file 07/28/2022 No 07/28/2022 No 07/28/2022 Digital Access Answer Date Recorded No 08/25/2022 No 08/25/2022 No 08/25/2022 Reliable internet access at home? Not on file 08/25/2022 Device with a working camera? Not on file Intimate Partner Violence Answer Date R ecorded Are you denied basic needs s uch as food, clothing, or medical care? No 07/08/2022 In the past 12 months have y ou been in a relationship with a person who hurts, threatens, or tries to control you? No 07/08/2022 Are you denied basic needs s uch as food, clothing, or medical care? No 07/08/2022 In the past 12 months have y ou been in a relationship with a person who hurts, threatens, or tries to control you? No 07/08/2022 Sex and Gender Information Value Date Recorded Sex Assigned at Not on file Legal Sex Male 10:06 PM EDT Gender Identity Not on file Sexual Orientation Not on file Last Filed Vital Signs Vital Sign Reading Time Taken Comments Blood Pressure 133/82 07/08/2022 8:05 AM EDT Pulse 77 07/08/2022 8:05 AM EDT Temperature 36.6 C (97.9 F) 07/08/2022 8:05 AM EDT Respiratory Rate 18 07/08/2022 8:05 AM EDT Oxygen Saturation 98% 07/08/2022 8:05 AM EDT Inhaled Oxygen Concentration - - Weight 112.5 kg (248 lb) 10/31/2023 10:23 AM EDT Height 188 cm (6' 2 ) 10/31/2023 10:23 AM EDT Body Mass Index 31.84 10/31/2023 10:23 AM EDT Plan of Treatment Upcoming Encounters Date Type Department Care Team (Late st Contact Info) Description 03/30/2025 Procedure Pass [facility] Admitting Dept Virtual Department [address] [place] [address] 03/30/2025 10:15 AM EST Hospital Encounter [facility] Admitting Dept Virtual Department [address] [place] [address] Isiah Randhawa MD [address] [place] [address] 03/30/2025 10:15 AM EST - 03/30/2025 10:30 AM EST Surgery [facility] Admitting Dept Virtual Department [address] [place] [address] Isiah Randhawa MD [address] [place] [address] COLONOSCOPY Scheduled Procedures Name Priority Associated Diagnoses Date/Ti me COLONOSCOPY History of colonic polyps 03/30/2025 10:15 AM EST Health Maintenance Due Date Last Done Comments Adult Td,Tdap Booster 1945 BLOOD PRESSURE 1947 DEPRESSION SCREENING 1959 HEPATITIS C SCREENING 1965 PNEUMOCOCCAL VACCINES (50+ years) (1 of 2 - PCV) 1966 ZOSTER VACCINES (1 of 2) 1997 DIABETIC EYE EXAM 09/16/2021 RSV VACCINE (1 - 1-dose 75+ series) 2022 INFLUENZA VACCINE (#1) 2024 COVID-19 VACCINE ( - 2024- season) 2024 03/07/2021, 07/24/2020, 07/02/2020 HEMOGLOBIN A1C 12/10/2024 06/09/2024, 03/02, 12/18/2023, Additional history exists CREATININE LEVEL 06/09/2025 06/09/2024, , 12/22/2022, Additional history exists LIPID PANEL 06/09/2025 06/09/2024 POTASSIUM LEVEL 06/09/2025 06/09/2024, 12/02, 12/22/2022, Additional history exists SMOKING STATUS SCREENING (Once After 26 Yrs) Completed 07/08/2022 HEPATITIS A VACCINES Aged Out No long er eligible based on patient's age to complete this topic HIB VACCINES Aged Out No longer eligi ble based on patient's age to complete this topic MENINGOCOCCAL VACCINES (ACWY) Aged Out No longer eligible based on patient's age to complete this topic MENINGOCOCCAL VACCINES (B) Aged Out N o longer eligible based on patient's age to complete this topic Medical Devices Not on file Procedures Procedure Name Priority Date/Time Associated Diagnosis Comments HEMOGLOBIN A1C Routine 06/09/2024 9:07 AM EDT Type 2 diabetes mellitus without complication, unspecified whether termite exterminator helper insulin use LIPID PANEL Routine 06/09/2024 9:07 AM EDT Type 2 diabetes mellitus without complication, unspecified whether care home insulin use COMPREHENSIVE METABOLIC PANEL Routine 06/09/2024 9:07 AM EDT Type 2 diabetes mellitus without complication, unspecified whether termite exterminator helper insulin use from Last 3 Months or Most Recently Relevant to Health Maintenance Results * (ABNORMAL) Comprehensive metabolic panel (06/09/2024 9:07 AM EDT) SODIUM 138 133 - 146 mmol/L [facility] POTASSIUM 4.7 3.3 - 5.1 mmol/L [facility] CHLORIDE 102 96 - 108 mmol/L [facility] CO2 26 21 - 35 mmol/L [facility] BUN 18 6 - 19 mg/dL [facility] CREATININE 1.10 0.5 - 1.5 mg/dL [facility] GLUCOSE 165(H) 70 - 99 mg/dL [facility] ALBUMIN 4.0 3.9 - 4.8 g/dL [facility] TOTAL PROTEIN 7.7 6.5 - 8.0 g/dL [facility] CALCIUM 9.1 8.4 - 10.3 mg/dL [facility] ALKALINE PHOSPHATASE 99 39 - 117 U/L [facility] TOTAL BILIRUBIN 0.3 0.0 - 1.2 mg/dL [facility] AST 21 0 - 37 U/L [facility] ALT 13 0 - 40 U/L [facility] GLOBULIN 3.7 1 - 4.8 g/dL [facility] EGFR 69 >59 mL/min/1.7 3m2 [facility] Comment:Estimated glomerular filtration rate calculated using the CKD-EPI refit equation. ANION GAP 15 10 - 20 mmol/L [facility] Blood 06/09/2024 9:07 AM EDT 06/09/2024 9:09 AM EDT us Jordan A Bigda DO LAB BLOOD ORDERABLES Final Resul t Performing Organization Address [facility] Co de Phone Number [address] [address] * (ABNORMAL) Hemoglobin A1c (06/09/2024 9:07 AM EDT) HEMOGLOBIN A1C 7.5(H) 4.3 - 5.8 % [facility] Blood 06/09/2024 9:0 7 AM EDT 06/09/2024 9:09 AM EDT us Jordan A Bigda DO LAB BLOOD ORDERABLES Final Resul t Performing Organization Address [facility] de Phone Number [address] [address] * (ABNORMAL) Lipid panel (06/09/2024 9:07 AM EDT) HDL 67 mg/dL [facility] Comment: Interpretation <40 mg/dL: Low HDL cholesterol (major risk factor for CHD) Greater than or equal to 60 mg/dL: High HDL cholesterol ( negative risk factor for CHD) HDL - cholesterol is affected by a number of factors, e.g. smoking, excerise, hormones, sex and age. CHOLESTEROL 142 0 - 240 mg/dL [facility] TRIGLYCERIDES 106 30 - 160 mg/dL [facility] LDL 54 50 - 129 mg/dL [facility] Comment: LDL levels in terms of risk for coronary heart disease: <100 mg/dL: Optimal 100-129 mg/dL: Near or above optimal 130-159 mg/dL: Borderline high 160-189 mg/dL: High >190 mg/dL: Very High CARDIAC RISK RATIO 2.1(L) 3.4 - 5.0 C [facility] Blood 06/09/2024 9:07 AM EDT 06/09/2024 9:09 AM EDT us Jordan A Bigda DO LAB BLOOD ORDERABLES Final Resul t Performing Organization Address [facility] Co de Phone Number [address] [address] from Last 3 Months or Most Recently Relevant to Health Maintenance Insurance MEDICARE PART A & B [employer] SUPPLEMENT MEDICARE PART A & B [employer] SUPPLEMENT MEDICARE PART A & B [facility] MEDEX SUPPLEMENT MEDICARE PART A & B [employer] SUPPLEMENT MEDICARE PART A & B [employer] SUPPLEMENT MEDICARE PART A & B [employer] SUPPLEMENT MEDICARE PART A & B [employer] SUPPLEMENT MEDICARE PART A & B [employer] SUPPLE[employer] MEDICARE PART A & B [employer]EX SUPPLEMENT Care Teams Solar Installation Crew Supervisor Relationship Specialty Start Date End Date Jordan Trevino DO [email or web address] PCP - General Internal Medicine 02/05/17 Additional Source Comments The information contained in this document represents components of the legal health record. It is not the complete legal health record.[facility]
--- OUTSIDE RECORDS SUMMARY | 2024-12-24 14:56 | XMS_ITS | Encounter Summary ---
Author Organization [facility] Address [address] [place] [address] Phone Care Team Providers Care Assembler Dc Field Ring Name Role Phone Jordan Trevino DO Primary Care Provider Encounter Details Date Type Department Care Team ([facility] st Contact Info) Description 08/21/2022 Transcribe Orders Virtual Department [address] [place] [address] Jordan Trevino DO [address] [facility] [place] [address] [email or web address] Scrotal pain (Primary Dx) Social History Tobacco Use Types Packs/Day Years [...] on file documented as of this encounter Plan of Treatment Upcoming Encounters Date Type Department Care Team (Late st Contact Info) Description 03/30/2025 Procedure Pass [facility] Admitting Dept Virtual Department [address] [place] [address] 03/30/2025 10:15 AM EST Hospital Encounter [facility] Admitting Dept Virtual Department [address] [place] [address] Isiah Randhawa MD [address] [place] [address] 03/30/2025 10:15 AM EST - 03/30/2025 10:30 AM EST Surgery [facility] Admitting Dept Virtual Department [address] [place] [address] Isiah Randhawa MD [address] [place] [address] COLONOSCOPY Scheduled Procedures Name Priority Associated Diagnoses Date/Ti hi COLONOSCOPY History of colonic polyps 03/30/2025 10:15 AM EST documented as of this encounter Results * US SCROTUM AND TESTICLES (08/24/2022 2:54 PM EDT) Anatomical Region Laterality Modality Pelvis, Scrotum/Testes, Testes U ltrasound 08/26/2022 6:20 AM EDT Impressions 08/26/2022 6:22 AM EDT No cause for pain identified. Narrative 08/26/2022 6:22 AM EDT US SCROTUM AND TESTICLES TECHNIQUE: Scrotal Ultrasound. Color and spectral Doppler performed. COMPARISON: None FINDINGS: Right hemiscrotum: Testicle: 4.7 x 3.0 x 2.1 cm Normal. No focal lesions. Doppler: Normal intratesticular blood flow with color Doppler. Epididymis: Normal. Varicocele: None. Hydrocele: Trace. Left hemiscrotum: Testicle: 4.5 x 3.1 x 2.0 cm Normal. No focal lesions. Doppler: Normal intratesticular blood flow with color Doppler. Epididymis: Simple appearing 6 mm cyst in the head. Varicocele: None. Hydrocele: Trace. Procedure Note Jordan Ahmadi MD - 08/26/2022 US SCROTUM AND TESTICLES TECHNIQUE: Scrotal Ultrasound. Color and spectral Doppler performed. COMPARISON: None FINDINGS: Right hemiscrotum: Testicle: 4.7 x 3.0 x 2.1 cm Normal. No focal lesions. Doppler: Normal intratesticular blood flow with color Doppler. Epididymis: Normal. Varicocele: None. Hydrocele: Trace. Left hemiscrotum: Testicle: 4.5 x 3.1 x 2.0 cm Normal. No focal lesions. Doppler: Normal intratesticular blood flow with color Doppler. Epididymis: Simple appearing 6 mm cyst in the head. Varicocele: None. Hydrocele: Trace. IMPRESSION: No cause for pain identified. us Jordan Trevino DO IMG US SCROTUM/PENIS Final Resul t documented in this encounter Visit Diagnoses Diagnosis Scrotal pain- Primary Unspecified disorder of male genital organs Scrotal pain Unspecified disorder of male genital organs History of colonic polyps Personal history of colonic polyps documented in this encounter Care Teams Assembler Dc Field Ring Relationship Specialty Start Date End Date Jordan Trevino DO [email or web address] PCP - General Internal Medicine 02/05/17 documented as of this encounter Additional Source Comments The information contained in this document represents components of the legal health record. It is not the complete legal health record.[facility]
--- OUTSIDE RECORDS SUMMARY | 2024-12-24 14:57 | XMS_ITS | Encounter Summary ---
Author Organization [facility] Address [address] [place] [address] Phone Care Team Providers Care Family Support Worker Name Role Phone Jordan Trevino Primary Care Provider [phone] Encounter Details Date Type Department Care Team (Late Contact Info) Description 03/22/2018 Procedure Pass [facility] Endoscopy Admitting Dept Virtual Department [address] [place] [address] Social History Tobacco Use Types Packs/Day Years Used Date Smoking Tobacco: Never Smokeless Tobacco: Never Alcohol Use Standard Drinks/Week Comments Yes 1 (1 standard drink = 0.6 oz pur e alcohol) Sex and Gender Information Value Date Recorded Sex Assigned at Not on file Legal Sex Male 10:06 PM EDT Gender Identity Not on file Sexual Orientation Not on file documented as of this encounter Plan of Treatment Upcoming Encounters Date Type Department Care Team (Late Contact Info) Description 03/30/2025 Procedure Pass [facility] Endoscopy Admitting Dept Virtual Department [address] [place] [address] 03/30/2025 10:15 AM EST Hospital Encounter [facility] Endoscopy Admitting Dept Virtual Department [address] [place] [address] Isiah Randhawa MD [address] [place] [address] 03/30/2025 10:15 AM EST - 03/30/2025 10:30 AM EST Surgery [facility] Endoscopy Admitting Dept Virtual Department [address] [place] [address] Isiah Randhawa MD [address] [place] [address] [email or web address] COLONOSCOPY Scheduled Procedures Name Priority Associated Diagnoses Date/Ti me COLONOSCOPY History of colonic polyps 03/30/2025 10:15 AM EST documented as of this encounter Visit Diagnoses Not on filedocumented in this encounter Additional Health Concerns Infection Onset Date Last Indicated Resolved Time CoV-Risk 09/17/2021 09/17/2021 09/28/2021 1:2 2 AM EDT documented as of this encounter Care Teams Family Support Worker Relationship Specialty Start Date End Date Jordan Trevino DO [email or web address] PCP - General Internal Medicine 02/05/17 documented as of this encounter Additional Source Comments The information contained in this document represents components of the legal health record. It is not the complete legal health record.[facility]
--- OUTSIDE RECORDS SUMMARY | 2024-12-24 14:57 | XMS_ITS | Encounter Summary ---
Author Organization [facility] Address [address] [place] [address] Phone Care Team Providers Care Experience Designer Name Role Phone Jordan Trevino DO Primary Care Provider [phone] Encounter Details Date Type Department Care Team ([facility] st Contact Info) Description 12/18/2023 Transcribe Orders [facility] [address] [place] [address] Jordan Trevino DO [address] [facility] [place] [address] [email or web address] Type 2 diabetes mellitus without complication, unspecified whether care home insulin use (Primary Dx) Social History Tobacco Use Types [...] Pass [facility] Endoscopy Admitting Dept Virtual Department [address] [place] [address] 03/30/2025 10:15 AM EST Hospital Encounter [facility] Endoscopy Admitting Dept Virtual Department [address] [place] [address] Isiah Randhawa MD [address] [address] 03/30/2025 10:15 AM EST - 03/30/2025 10:30 AM EST Surgery [facility] Endoscopy Admitting Dept Virtual Department [address] [place] [address] Isiah Randhawa MD [address] [address] [email or web address] COLONOSCOPY Scheduled Orders Name Type Priority Associated Diagnoses Orde r Schedule Hemoglobin A1c Lab Routine Type 2 diabetes mellitus without complication, unspecified 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 gauger supervisor insulin 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 Monthly for 5 Occurrences starting 12/18/2023 until 12/17/2024, 3 completed Comprehensive metabolic panel Lab Routine Type 2 diabetes mellitus without complication, unspecified whether care home insulin use Every 6 months for 2 Occurrences starting 12/18/2023 until 12/17/2024, 1 completed Lipid panel Lab Routine Type 2 diabetes mellitus without complication, unspecified 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 gauger supervisor insulin use Every 6 months for 2 Occurrences starting 12/18/2023 until 12/17/2024, 1 completed Scheduled Procedures Name Priority Associated Diagnoses Date/Ti me COLONOSCOPY History of colonic polyps 03/30/2025 10:15 AM EST documented as of this encounter Results * (ABNORMAL) Lipid panel (06/09/2024 9:07 AM EDT) HDL 67 mg/dL [facility] Comment: Interpretation <40 mg/dL: Low HDL cholesterol (major risk factor for CHD) Greater than or equal to 60 mg/dL: High HDL cholesterol ( negative risk factor for CHD) HDL - cholesterol is affected by a number of factors, e.g. smoking, excerise, hormones, sex and age. CHOLESTEROL 142 0 - 240 mg/dL [facility] TRIGLYCERIDES 106 30 - 160 mg/dL [facility] LDL 54 50 - 129 mg/dL [facility] Comment: LDL levels in terms of risk for coronary heart disease: <100 mg/dL: Optimal 100-129 mg/dL: Near or above optimal 130-159 mg/dL: Borderline high 160-189 mg/dL: High >190 mg/dL: Very High CARDIAC RISK RATIO 2.1(L) 3.4 - 5.0 [facility] Blood 06/09/2024 9:07 AM EDT 06/09/2024 9:09 AM EDT us Jordan A Bigda DO LAB BLOOD ORDERABLES Final Resul t [address] [address] * (ABNORMAL) Comprehensive metabolic panel (06/09/2024 9:07 AM EDT) Pathologist [facility] SODIUM 138 133 - 146 mmol/L [facility] POTASSIUM 4.7 3.3 - 5.1 mmol/L [facility] CHLORIDE 102 96 - 108 mmol/L [facility] CO2 26 21 - 35 mmol/L [facility] BUN 18 6 - 19 mg/dL [facility] CREATININE 1.10 0.5 - 1.5 mg/dL [facility] GLUCOSE 165(H) 70 - 99 mg/dL [facility] ALBUMIN 4.0 3.9 - 4.8 g/dL [facility] TOTAL PROTEIN 7.7 6.5 - 8.0 g/dL [facility] CALCIUM 9.1 8.4 - 10.3 mg/dL [facility] ALKALINE PHOSPHATASE 99 39 - 117 U/L [facility] TOTAL BILIRUBIN 0.3 0.0 - 1.2 mg/dL [facility] AST 21 0 - 37 U/L [facility] ALT 13 0 - 40 U/L [facility] GLOBULIN 3.7 1 - 4.8 g/dL [facility] EGFR 69 >59 mL/min/1.7 3m2 [facility] Comment:Estimated glomerular filtration rate calculated using the CKD-EPI refit equation. ANION GAP 15 10 - 20 mmol/L [facility] Blood 06/09/2024 9:07 AM EDT 06/09/2024 9:09 AM EDT us Jordan A Bigda DO LAB BLOOD ORDERABLES Final Resul t Performing Organization Address [facility] de Phone Number [address] [address] * (ABNORMAL) Hemoglobin A1c (06/09/2024 9:07 AM EDT) HEMOGLOBIN A1C 7.5(H) 4.3 - 5.8 % [facility] Blood 06/09/2024 9:07 AM EDT 06/09/2024 9:09 AM EDT us Jordan A Bigda DO LAB BLOOD ORDERABLES Final Resul t Performing Organization Address [facility] Co de Phone Number [address] [address] * (ABNORMAL) Hemoglobin A1c (03/18/2024 9:39 AM EST) HEMOGLOBIN A1C 7.3(H) 4.3 - 5.8 % [facility] Blood 03/18/2024 9:39 AM EST 03/18/2024 9:41 AM EST us Jordan A Bigda DO LAB BLOOD ORDERABLES Final Resul t Performing Organization Address [facility] de Phone Number [address] [address] * (ABNORMAL) Hemoglobin A1c (12/18/2023 11:02 AM EDT) HEMOGLOBIN A1C 7.2(H) 4.3 - 5.8 % [facility] Blood 12/18/2023 11:0 2 AM EDT 12/18/2023 11:06 AM EDT us Jordan Trevino DO LAB BLOOD ORDERABLES Final Resul t Performing Organization Address City/[facility]/ZIP Co de Phone Number [address] [address] documented in this encounter Visit Diagnoses Diagnosis Type 2 diabetes mellitus without complication, unspecified whether care home insulin use- Primary History of colonic polyps Personal history of colonic polyps documented in this encounter Care Teams Experience Designer Relationship Specialty Start Date End Date Jordan Trevino DO [email or web address] PCP - General Internal Medicine 02/05/17 documented as of this encounter Additional Source Comments The information contained in this document represents components of the legal health record. It is not the complete legal health record.[facility]
--- OUTSIDE RECORDS SUMMARY | 2024-12-24 14:57 | XMS_ITS | Encounter Summary ---
Author Organization [facility] Address [address] [place] [address] Phone Care Team Providers Care Geothermal Operations Engineer Name Role Phone Jordan Trevino Primary Care Provider [phone] Reason for Referral * Physical Therapy (Routine) - Closed Specialty Diagnoses / Procedures Referred By Deshawn t Referred To Contact Physical Therapy Diagnoses Encounter for rehabilitation Phil Pollard PA [address] [address] Phone: tel: fax: [facility] [address] [place] [address] Phone: tel: Referral ID Status Reason Start Date Expiration Date Visits Re quested Visits Authorized [id number] Closed 01/25/2023 01/25/2024 99 99 Encounter Details Date Type Department Care Team (Latest Contact Info) Description 01/25/2023 Transcribe Orders [facility] 8 [place] [address] Phil Pollard PA [address] [address] Encounter for rehabilitation (Primary Dx) Social History Tobacco Use Types [...] Pass [facility] Endoscopy Admitting Dept Virtual Department [address] [place] [address] 03/30/2025 10:15 AM EST Hospital Encounter [facility] Endoscopy Admitting Dept Virtual Department [address] [place] [address] Isiah Randhawa MD [address] [place] [address] 03/30/2025 10:15 AM EST - 03/30/2025 10:30 AM EST Surgery [facility] Endoscopy Admitting Dept Virtual Department [address] [place] [address] Isiah Randhawa MD [address] [place] [address] COLONOSCOPY Scheduled Procedures Name Priority Associated Diagnoses Date/Ti me COLONOSCOPY History of colonic polyps 03/30/2025 10:15 AM EST Scheduled Referrals Name Type Priority Associated Diagnoses Orde r Schedule Ambulatory referral to [facility] Physical Therapy Outpatient Referral Routine Encounter for rehabilitation Ordered: 01/25/2023 documented as of this encounter Visit Diagnoses Diagnosis Encounter for rehabilitation- Primary History of colonic polyps Personal history of colonic polyps documented in this encounter Care Teams Geothermal Operations Engineer Relationship Specialty Start Date End Date Jordan Trevino DO [email or web address] PCP - General Internal Medicine 02/05/17 documented as of this encounter Additional Source Comments The information contained in this document represents components of the legal health record. It is not the complete legal health record.[facility]
--- OUTSIDE RECORDS SUMMARY | 2024-12-24 14:57 | XMS_ITS | Encounter Summary ---
Author Organization [facility] Address [address] [place] [address] Phone Care Team Providers Care Water Main Inspector Name Role Phone Jordan Trevino DO Primary Care Provider [phone] Encounter Details Date Type Department Care Team ([facility] st Contact Info) Description 10/01/2023 Transcribe Orders Virtual Department [address] [place] [address] Jordan Trevino DO 179 [facility] [address] [email or web address] Pelvic and perineal pain (Primary Dx) Social History Tobacco Use [...] Pass [facility] Endoscopy Admitting Dept Virtual Department [address] [place] [address] 03/30/2025 10:15 AM EST Hospital Encounter [facility] Endoscopy Admitting Dept Virtual Department [address] [place] [address] Isiah Randhawa MD [address] [address] [email or web address] 03/30/2025 10:15 AM EST - 03/30/2025 10:30 AM EST Surgery [facility] Endoscopy Admitting Dept Virtual Department [address] [place] [address] Isiah Randhawa MD [address] [address] [email or web address] COLONOSCOPY Scheduled Procedures Name Priority Associated Diagnoses Date/Ti nd COLONOSCOPY History of colonic polyps 03/30/2025 10:15 AM EST documented as of this encounter Visit Diagnoses Diagnosis Pelvic and perineal pain- Primary History of colonic polyps Personal history of colonic polyps documented in this encounter Care Teams Water Main Inspector Relationship Specialty Start Date End Date Jordan Trevino DO [email or web address] PCP - General Internal Medicine 02/05/17 documented as of this encounter Additional Source Comments The information contained in this document represents components of the legal health record. It is not the complete legal health record.[facility]
--- OUTSIDE RECORDS SUMMARY | 2024-12-24 14:57 | XMS_ITS | Encounter Summary ---
Author Organization [facility] Address [address] [place] [address] Phone Care Team Providers Care Fire Fighting Equipment Specialist Name Role Phone Jordan Trevino DO Primary Care Provider [phone] Encounter Details Date Type Department Care Team ([facility] Contact Info) Description 11/28/2019 Transcribe Orders Virtual Department [address] [place] [address] Jordan Trevino DO 179 [facility] [place] [address] [place] [address] [email or web address] Cervicalgia (Primary Dx) Social History Tobacco Use Types [...] Pass [facility] Endoscopy Admitting Dept Virtual Department [address] [place] [address] 03/30/2025 10:15 AM EST Hospital Encounter [facility] Endoscopy Admitting Dept Virtual Department [address] [place] [address] Isiah Randhawa MD [address] [place] [address] 03/30/2025 10:15 AM EST - 03/30/2025 10:30 AM EST Surgery [facility] Endoscopy Admitting Dept Virtual Department [address] [place] [address] Isiah Randhawa MD [address] [place] [address] [email or web address] COLONOSCOPY Scheduled Procedures Name Priority Associated Diagnoses Date/Ti me COLONOSCOPY History of colonic polyps 03/30/2025 10:15 AM EST documented as of this encounter Visit Diagnoses Diagnosis Cervicalgia- Primary History of colonic polyps Personal history of colonic polyps documented in this encounter Additional Health Concerns Infection Onset Date Last Indicated Resolved Time CoV-Risk 09/17/2021 09/17/2021 09/28/2021 1:22 AM EDT documented as of this encounter Care Teams Fire Fighting Equipment Specialist Relationship Specialty Start Date End Date Jordan Trevino DO [email or web address] PCP - General Internal Medicine 02/05/17 documented as of this encounter Additional Source Comments The information contained in this document represents components of the legal health record. It is not the complete legal health record.[facility]
--- OUTSIDE RECORDS SUMMARY | 2024-12-24 14:57 | XMS_ITS | Encounter Summary ---
Author Organization [facility] Address [address] [place] [address] Phone Care Team Providers Care Coremaker Floor Name Role Phone Jordan Trevino DO Primary Care Provider [phone] Encounter Details Date Type Department Care Team (Late Contact Info) Description 02/05/2017 Ancillary Orders Virtual Department [address] [place] [address] Mack Cardoso MD [address] [place] [address], [address] [address] [email or web address] Kidney stone Social History Tobacco Use Types Packs/Day Years Used Date Smoking Tobacco: Never Assessed Sex and Gender Information Value Date Recorded Sex Assigned at Not on file Legal Sex Male 10:06 PM EDT Gender Identity Not on file Sexual Orientation Not on file documented as of this encounter Plan of Treatment Upcoming Encounters Date Type Department Care Team (Late Contact Info) Description 03/30/2025 Procedure Pass [facility] Endoscopy Admitting Dept Virtual Department [address] [place] [address] 03/30/2025 10:15 AM EST Hospital Encounter [facility] Endoscopy Admitting Dept Virtual Department [address] [place] [address] Isiah Randhawa MD [address] [place] [address] 03/30/2025 10:15 AM EST - 03/30/2025 10:30 AM EST Surgery [facility] Endoscopy Admitting Dept Virtual Department 30 [place] [address] Isiah Randhawa MD [address] [place] [address] [email or web address] COLONOSCOPY Scheduled Procedures Name Priority Associated Diagnoses Date/Ti me COLONOSCOPY History of colonic polyps 03/30/2025 10:15 AM EST documented as of this encounter Visit Diagnoses Diagnosis Kidney stone Calculus of kidney History of colonic polyps Personal history of colonic polyps documented in this encounter Additional Health Concerns Infection Onset Date Last Indicated Resolved Time CoV-Risk 09/17/2021 09/17/2021 09/28/2021 1:22 AM EDT documented as of this encounter Care Teams Coremaker Floor Relationship Specialty Start Date End Date Jordan Trevino DO [email or web address] PCP - General Internal Medicine 02/05/17 documented as of this encounter Additional Source Comments The information contained in this document represents components of the legal health record. It is not the complete legal health record.[facility]
--- OUTSIDE RECORDS SUMMARY | 2024-12-24 14:57 | XMS_ITS | Encounter Summary ---
Author Organization [facility] Address [phone] [place] [address] Phone Care Team Providers Care School Bus Technician Name Role Phone Jordan Trevino DO Primary Care Provider Encounter Details Date Type Department Care Team ([facility] st Contact Info) Description 03/18/2024 Transcribe Orders [address] [address] Jordan Trevino DO 179 [facility] [place] [address] [email or web address] Social History Tobacco Use Types Packs/Day Years [...] Pass [facility] Endoscopy Admitting Dept Virtual Department [address] [place] [address] 03/30/2025 10:15 AM EST Hospital Encounter [facility] Endoscopy Admitting Dept Virtual Department [address] [place] [address] Isiah Randhawa MD [address] [place] [address] 03/30/2025 10:15 AM EST - 03/30/2025 10:30 AM EST Surgery [facility] Endoscopy Admitting Dept Virtual Department [address] [place] [address] Isiah Randhawa MD [address] [address] [email or web address] COLONOSCOPY Scheduled Procedures Name Priority Associated Diagnoses Date/Ti de COLONOSCOPY History of colonic polyps 03/30/2025 10:15 AM EST documented as of this encounter Visit Diagnoses Not on filedocumented in this encounter Care Teams School Bus Technician Relationship Specialty Start Date End Date Jordan Trevino DO PCP - General Internal Medicine 02/05/17 documented as of this encounter Additional Source Comments The information contained in this document represents components of the legal health record. It is not the complete legal health record.[facility]
[2024-12-24 18:05] LABS: MANUAL DIFF FLAG NO
[2024-12-24 18:18] LABS: Hematocrit 37.0 % (42.0-52.0); Hemoglobin 12.4 g/dl (14.0-18.0); Imm Gran Abs Auto 0.02 X10*3/uL (0.00-0.03); Imm Gran Pct Auto 0.3 % (0.0-0.4); Lymphocytes Absolute Auto 1.3 X10*3/uL (1.2-4.9); Mean Corpuscular HGB Conc 33.5 g/dl (31.0-36.0); Mean Corpuscular Hemoglobin 30.4 pg (27.0-33.0); Mean Corpuscular Volume 90.7 fL (80.0-98.0); NRBC Abs Auto 0.000 X10*3/uL (0.0-0.012); NRBC Pct Auto 0.0 /100WBC (0.0-0.2); Platelet Count 279 X10*3/uL (160-400); Red Blood Count 4.08 X10*6/uL (4.60-5.80); White Blood Count 6.6 X10*3/uL (4.8-10.8)
[2024-12-24 18:54] LABS: Alanine Aminotransferase 32 U/L (0-40); Albumin Level 4.2 g/dL (3.5-5.0); Alkaline Phosphatase 109 U/L (39-117); Anion Gap 13 (12-20); Aspartate Amino Transferase 28 U/L (5-37); Blood Urea Nitrogen 22 mg/dL (9-16); Calcium 8.9 mg/dL (8.4-10.2); Carbon Dioxide 26 mmol/L (22-29); Chloride 104 mmol/L (96-108); Estimated Glomerular Filt Rate > 60; Potassium 4.6 mmol/L (3.3-5.1); Sodium 138 mmol/L (135-145); Total Protein 7.5 g/dL (6.5-8.0)
[2024-12-24 19:12] LABS: Thyroid Stimulating Hormone 1.93 uIU/mL (0.32-4.0)
[2024-12-24 19:17] LABS: Vitamin B12 252 pg/mL (200-900)
== END 2024-12-24 12:16 | disposition home or self-care (01) ==
LOC: HO.MANLDS 12:15
PROVIDERS: Visit Provider Internal Medicine
DX: R53.82 Chronic fatigue, unspecified (principal)
CPT/HCPCS: 36415; 80053; 82306; 82607; 84403; 84443; 85025; 85652; 86140

== ENCOUNTER 2024-12-25 07:45 | Outpatient (AMB) | payer MEDICARE, SELFPAY ==
--- OUTSIDE RECORDS SUMMARY | 2024-12-25 07:49 | XMS_ITS | Encounter Summary ---
Author Organization [facility] Address [address] [place] [address] Phone Care Team Providers Care Wire Spinner Name Role Phone Jordan Trevino DO Primary Care Provider [phone] Encounter Details Date Type Department Care Team ([facility] st Contact Info) Description 03/18/2024 Transcribe Orders [address] [address] Jordan Trevino DO 179 [facility] [place] [address] Social History Tobacco Use Types Packs/Day Years [...] Pass [facility] Endoscopy Admitting Dept Virtual Department [address] [place] [address] 03/30/2025 10:15 AM EST Hospital Encounter [facility] Endoscopy Admitting Dept Virtual Department [address] [place] [address] Isiah Randhawa MD [address] [place] [address] 03/30/2025 10:15 AM EST - 03/30/2025 10:30 AM EST Surgery [facility] Endoscopy Admitting Dept Virtual Department [address] [place] [address] Isiah Randhawa MD [address] [address] [email or web address] COLONOSCOPY Scheduled Procedures Name Priority Associated Diagnoses Date/Ti ct COLONOSCOPY History of colonic polyps 03/30/2025 10:15 AM EST documented as of this encounter Visit Diagnoses Not on filedocumented in this encounter Care Teams Wire Spinner Relationship Specialty Start Date End Date Jordan Trevino DO PCP - General Internal Medicine 02/05/17 documented as of this encounter Additional Source Comments The information contained in this document represents components of the legal health record. It is not the complete legal health record.[facility]
--- OUTSIDE RECORDS SUMMARY | 2024-12-25 07:49 | XMS_ITS | Encounter Summary ---
Author Organization [facility] Address [address] [place] [address] Phone Care Team Providers Care Multimedia Services Coordinator Name Role Phone Jordan Trevino DO Primary Care Provider [phone] Encounter Details Date Type Department Care Team ([facility] st Contact Info) Description 10/01/2023 Transcribe Orders Virtual Department [address] [place] [address] Jordan Trevino DO 179 [facility] [place] [address] [email or web address] Pelvic and perineal pain (Primary Dx) Social [...] Pass [facility] Endoscopy Admitting Dept Virtual Department [address] [place] [address] 03/30/2025 10:15 AM EST Hospital Encounter [facility] Endoscopy Admitting Dept Virtual Department [address] [place] [address] Isiah Randhawa MD [address] [address] [email or web address] 03/30/2025 10:15 AM EST - 03/30/2025 10:30 AM EST Surgery [facility] Endoscopy Admitting Dept Virtual Department [address] [place] [address] Isiah Randhawa MD [address] [address] [email or web address] COLONOSCOPY Scheduled Procedures Name Priority Associated Diagnoses Date/Ti ms COLONOSCOPY History of colonic polyps 03/30/2025 10:15 AM EST documented as of this encounter Visit Diagnoses Diagnosis Pelvic and perineal pain- Primary History of colonic polyps Personal history of colonic polyps documented in this encounter Care Teams Multimedia Services Coordinator Relationship Specialty Start Date End Date Jordan Trevino DO [email or web address] PCP - General Internal Medicine 02/05/17 documented as of this encounter Additional Source Comments The information contained in this document represents components of the legal health record. It is not the complete legal health record.[facility]
--- OUTSIDE RECORDS SUMMARY | 2024-12-25 07:49 | XMS_ITS | Encounter Summary ---
Author Organization [facility] Address [address] [place] [address] Phone Care Team Providers Care Author'S Agent Name Role Phone Jordan Trevino DO Primary Care Provider [phone] Encounter Details Date Type Department Care Team (Late Contact Info) Description 02/05/2017 Ancillary Orders Virtual Department [address] [place] [address] Mack Cardoso MD [address] [place] [address], [address] [address] [email or web address] Kidney stone Social History Tobacco Use Types [...] Pass [facility] Endoscopy Admitting Dept Virtual Department [address] [place] [address] 03/30/2025 10:15 AM EST Hospital Encounter [facility] Endoscopy Admitting Dept Virtual Department [address] [place] [address] Isiah Randhawa MD [address] [place] [address] 03/30/2025 10:15 AM EST - 03/30/2025 10:30 AM EST Surgery [facility] Endoscopy Admitting Dept Virtual Department [address] [place] [address] Isiah Randhawa MD [address] [place] [address] [email or web address] COLONOSCOPY Scheduled Procedures Name Priority Associated Diagnoses [...] documented as of this encounter Care Teams Author'S Agent Relationship Specialty Start Date End Date Jordan Trevino DO [email or web address] PCP - General Internal Medicine 02/05/17 documented as of this encounter Additional Source Comments The information contained in this document represents components of the legal health record. It is not the complete legal health record.[facility]
--- OUTSIDE RECORDS SUMMARY | 2024-12-25 07:49 | XMS_ITS | Encounter Summary ---
Author Organization [facility] Address [address] [place] [address] Phone Care Team Providers Care Charter Coach Driver Name Role Phone Jordan Trevino DO Primary Care Provider [phone] Encounter Details Date Type Department Care Team ([facility] st Contact Info) Description 08/21/2022 Transcribe Orders Virtual Department [address] [place] [address] Jordan Trevino DO [address] [place] [address] [email or web address] Scrotal pain (Primary Dx) Social History Tobacco [...] Pass [facility] Endoscopy Admitting Dept Virtual Department [address] [place] [address] 03/30/2025 10:15 AM EST Hospital Encounter [facility] Endoscopy Admitting Dept Virtual Department [address] [place] [address] Isiah Randhawa MD [address] [place] [address] 03/30/2025 10:15 AM EST - 03/30/2025 10:30 AM EST Surgery [facility] Endoscopy Admitting Dept Virtual Department [address] [place] [address] Isiah Randhawa MD [address] [place] [address] COLONOSCOPY Scheduled Procedures Name Priority Associated Diagnoses Date/Ti co COLONOSCOPY History of colonic polyps 03/30/2025 10:15 [...] polyps documented in this encounter Care Teams Charter Coach Driver Relationship Specialty Start Date End Date Jordan Trevino DO [email or web address] PCP - General Internal Medicine 02/05/17 documented as of this encounter Additional Source Comments The information contained in this document represents components of the legal health record. It is not the complete legal health record.[facility]
--- OUTSIDE RECORDS SUMMARY | 2024-12-25 07:49 | XMS_ITS | Clinical Summary ---
Author Organization [facility] Address [address] [place] [address] Phone Care Team Providers Care Programmer Numerical Control Name Role Phone Jordan Trevino Primary Care Provider Allergies No known active allergies Medications ONETOUCH [...] Pass [facility] Endoscopy Admitting Dept Virtual Department [address] [place] [address] 03/30/2025 10:15 AM EST Hospital Encounter [facility] Endoscopy Admitting Dept Virtual Department [address] [place] [address] Isiah Randhawa MD [address] [place] [address] 03/30/2025 10:15 AM EST - 03/30/2025 10:30 AM EST Surgery [facility] Endoscopy Admitting Dept Virtual Department 30 [place] [address] Isiah Randhawa MD [address] [place] [address] COLONOSCOPY Scheduled Procedures Name Priority Associated Diagnoses [...] 2 diabetes mellitus without complication, unspecified whether residency director insulin use LIPID PANEL Routine 06/09/2024 9:07 AM EDT Type 2 diabetes mellitus without complication, unspecified whether half-way insulin use COMPREHENSIVE METABOLIC PANEL Routine 06/09/2024 9:07 AM EDT Type 2 diabetes mellitus without complication, unspecified whether residency director insulin use from Last 3 Months or Most Recently Relevant to Health Maintenance Results * (ABNORMAL) Comprehensive metabolic panel (06/09/2024 9:07 AM EDT) SODIUM 138 133 - 146 mmol/L [facility] POTASSIUM 4.7 3.3 - 5.1 mmol/L [facility] CHLORIDE 102 96 - 108 mmol/L [facility] CO2 26 21 - 35 mmol/L [facility] BUN 18 6 - 19 mg/dL [facility] CREATININE 1.10 0.5 - 1.5 mg/dL [facility] GLUCOSE 165(H) 70 - 99 mg/dL [facility] ALBUMIN 4.0 3.9 - 4.8 g/dL [facility] TOTAL PROTEIN 7.7 6.5 - 8.0 g/dL [facility] CALCIUM 9.1 8.4 - 10.3 mg/dL [facility] ALKALINE PHOSPHATASE 99 39 - 117 U/L [facility] TOTAL BILIRUBIN 0.3 0.0 - 1.2 mg/dL [facility] AST 21 0 - 37 U/L [facility] ALT 13 0 - 40 U/L [facility] GLOBULIN 3.7 1 - 4.8 g/dL [facility] EGFR 69 >59 mL/min/1.7 3m2 [facility] Comment:Estimated glomerular filtration rate calculated using the CKD-EPI refit equation. ANION GAP 15 10 - 20 mmol/L [facility] Blood 06/09/2024 9:07 AM EDT 06/09/2024 9:09 AM EDT us Jordan A Bigda DO LAB BLOOD ORDERABLES Final Resul t Performing Organization Address [facility] Co de Phone Number [address] [address] * (ABNORMAL) Hemoglobin A1c (06/09/2024 9:07 AM EDT) HEMOGLOBIN A1C 7.5(H) 4.3 - 5.8 % [facility] Blood 06/09/2024 9:0 7 AM EDT 06/09/2024 9:09 AM EDT us Jordan A Bigda DO LAB BLOOD ORDERABLES Final Resul t Performing Organization Address [facility] de Phone Number [address] [address] * (ABNORMAL) Lipid panel (06/09/2024 9:07 AM EDT) HDL 67 mg/dL [facility] Comment: Interpretation <40 mg/dL: Low HDL cholesterol (major risk factor for CHD) Greater than or equal to 60 mg/dL: High HDL cholesterol ( negative risk factor for CHD) HDL - cholesterol is affected by a number of factors, e.g. smoking, excerise, hormones, sex and age. CHOLESTEROL 142 0 - 240 mg/dL [facility] TRIGLYCERIDES 106 30 - 160 mg/dL [facility] LDL 54 50 - 129 mg/dL [facility] Comment: LDL levels in terms of risk for coronary heart disease: <100 mg/dL: Optimal 100-129 mg/dL: Near or above optimal 130-159 mg/dL: Borderline high 160-189 mg/dL: High >190 mg/dL: Very High CARDIAC RISK RATIO 2.1(L) 3.4 - 5.0 [facility] Blood 06/09/2024 9:07 AM EDT 06/09/2024 9:09 AM EDT us Jrodan A Bigda DO LAB BLOOD ORDERABLES Final Resul t Performing Organization Address [facility] Co de Phone Number [address] [address] from Last 3 Months or Most Recently Relevant to Health Maintenance Insurance MEDICARE PART A & B [employer] SUPPLEMENT MEDICARE PART A & B [employer] SUPPLEMENT MEDICARE PART A & B [facility] MEDEX SUPPLEMENT MEDICARE PART A & B [employer] SUPPLEMENT MEDICARE PART A & B Member Subscriber Plan / Payer (Replaced by [facility] 03/02/2012-Present) Name:Yovany Mccarthy Member ID:[id number] Relation to Subscriber:Self Name:Marvin Mccarthyn Subscriber ID:[id number] Payer ID:[id number] Group ID:Not on file Type:Medicare Address: [employer] [address] [place] [address] [employer] MEDEX SUPPLEMENT Member Subscriber Plan / Payer (Replaced by [facility] 03/02/2012-Present) Name:Yovany Mccarthy Relation to Subscriber:Self Name:SathyaMarvin huebrn Payer ID:[id number] (NAIC) Type:Indemnity Address: [place] [address] MEDICARE PART A & B [employer] MED[employer] SUPPLEMENT MEDICARE PART A & B [employer] MED[employer] SUPPLEMENT MEDICARE PART A & B [employer] MED[employer] SUPPLEMENT MEDICARE PART A & B [employer] MED[employer] SUPPLEMENT Care Teams Programmer Numerical Control Relationship Specialty Start Date End Date Jordan Trevino DO [email or web address] PCP - General Internal Medicine 02/05/17 Additional Source Comments The information contained in this document represents components of the legal health record. It is not the complete legal health record.[facility]
--- OUTSIDE RECORDS SUMMARY | 2024-12-25 07:49 | XMS_ITS | Encounter Summary ---
Author Organization [facility] Address [address] [place] [address] Phone Care Team Providers Care Retail Service Technician Name Role Phone Jrodan Trevino Primary Care Provider [phone] Reason for Referral * Physical Therapy (Routine) - Closed Specialty Diagnoses / Procedures Referred By Deshawn t Referred To Contact Physical Therapy Diagnoses Encounter for rehabilitation Phil Pollard PA [address] [address] Phone: tel: fax: [facility] [address] [place] [address] Phone: tel: Referral ID Status Reason Start Date Expiration Date Visits Re quested Visits Authorized [id number] Closed 01/25/2023 01/25/2024 99 99 Encounter Details Date Type Department Care Team (Latest Contact Info) Description 01/25/2023 Transcribe Orders [facility] [address] [place] [address] Phil Pollard PA [address] [address] Encounter for rehabilitation (Primary Dx) [...] Pass [facility] Endoscopy Admitting Dept Virtual Department [address] [place] [address] 03/30/2025 10:15 AM EST Hospital Encounter [facility] Endoscopy Admitting Dept Virtual Department [address] [place] [address] Isiah Randhawa MD [address] [place] [address] 03/30/2025 10:15 AM EST - 03/30/2025 10:30 AM EST Surgery [facility] Endoscopy Admitting Dept Virtual Department [address] [place] [address] Isiah Randhawa MD [address] [place] [address] COLONOSCOPY Scheduled Procedures Name Priority Associated Diagnoses Date/Ti me COLONOSCOPY History of colonic polyps 03/30/2025 10:15 AM EST Scheduled Referrals Name Type Priority Associated Diagnoses Orde r Schedule Ambulatory referral to [facility] Physical Therapy Outpatient Referral Routine Encounter for rehabilitation Ordered: 01/25/2023 documented as of this encounter Visit Diagnoses Diagnosis Encounter for rehabilitation- Primary History of colonic polyps Personal history of colonic polyps documented in this encounter Care Teams Retail Service Technician Relationship Specialty Start Date End Date Jordan Trevino DO [email or web address] PCP - General Internal Medicine 02/05/17 documented as of this encounter Additional Source Comments The information contained in this document represents components of the legal health record. It is not the complete legal health record.[facility]
--- OUTSIDE RECORDS SUMMARY | 2024-12-25 07:49 | XMS_ITS | Encounter Summary ---
Author Organization [facility] Address [address] [place] [address] [place] [address] Phone Care Team Providers Care Parking Station Attendant Name Role Phone Jordan Trevino Primary Care Provider [phone] Encounter Details Date Type Department Care Team (Late st Contact Info) Description 09/16/2021 Procedure Pass [facility], Ct Scan - [address] [address] Social History Tobacco Use Types Packs/Day Years [...] 7:43 PM EDT Jayesh Mott RN * Norton Suicide Severity Rating Scale (Screener/Recent Self-Report) Question [...] Pass [facility] Endoscopy Admitting Dept Virtual Department [address] [place] [address] 03/30/2025 10:15 AM EST Hospital Encounter [facility] Endoscopy Admitting Dept Virtual Department [address] [place] [address] Isiah Randhawa MD [address] [address] [email or web address] 03/30/2025 10:15 AM EST - 03/30/2025 10:30 AM EST Surgery [facility] Endoscopy Admitting Dept Virtual Department [address] [place] [address] Isiah Randhawa MD [address] [address] [email or web address] COLONOSCOPY Scheduled Procedures Name Priority Associated Diagnoses Date/Ti me COLONOSCOPY History of colonic polyps 03/30/2025 10:15 AM EST documented as of this encounter Visit Diagnoses Not on filedocumented in this encounter Additional Health Concerns Infection Onset Date Last Indicated Resolved Time CoV-Risk 09/17/2021 09/17/2021 09/28/2021 1:22 AM EDT documented as of this encounter Care Teams Parking Station Attendant Relationship Specialty Start Date End Date Jordan Trevino DO [email or web address] PCP - General Internal Medicine 02/05/17 documented as of this encounter Additional Source Comments The information contained in this document represents components of the legal health record. It is not the complete legal health record.[facility]
--- OUTSIDE RECORDS SUMMARY | 2024-12-25 07:49 | XMS_ITS | Encounter Summary ---
Author Organization [facility] Address [address] [place] [address] Phone Care Team Providers Care Hazmat Cdl A Driver Name Role Phone Jordan Trevino DO Primary Care Provider [phone] Encounter Details Date Type Department Care Team ([facility] st Contact Info) Description 12/18/2023 Transcribe Orders [facility] [address] [place] [address] Jordan Trevino DO [address] [facility] [place] [address] [email or web address] Type 2 diabetes mellitus without complication, unspecified whether intermediate insulin use (Primary Dx) Social History Tobacco [...] Pass [facility] Endoscopy Admitting Dept Virtual Department [address] [place] [address] 03/30/2025 10:15 AM EST Hospital Encounter [facility] Endoscopy Admitting Dept Virtual Department [address] [place] [address] Isiah Randhawa MD [address] [address] 03/30/2025 10:15 AM EST - 03/30/2025 10:30 AM EST Surgery [facility] Endoscopy Admitting Dept Virtual Department [address] [place] [address] Isiah Randhawa MD [address] [address] [email or web address] COLONOSCOPY Scheduled Orders Name Type Priority Associated Diagnoses Orde r Schedule Hemoglobin A1c Lab Routine Type 2 diabetes mellitus without complication, unspecified whether intermediate frame tender insulin use Monthly for 5 Occurrences starting 12/18/2023 until 12/17/2024, 3 completed Comprehensive metabolic panel Lab Routine Type 2 diabetes mellitus without complication, unspecified whether intermediate insulin use Every 6 months for 2 Occurrences starting 12/18/2023 until 12/17/2024, 1 completed Lipid panel Lab Routine Type 2 diabetes mellitus without complication, unspecified whether intermediate frame tender insulin use Every 6 months for 2 Occurrences starting 12/18/2023 until 12/17/2024, 1 completed Scheduled Procedures Name Priority Associated Diagnoses Date/Ti me COLONOSCOPY History of colonic polyps 03/30/2025 10:15 AM EST documented as of this encounter Results * (ABNORMAL) Lipid panel (06/09/2024 9:07 AM EDT) HDL 67 mg/dL [facility] Comment: Interpretation <40 mg/dL: Low HDL cholesterol (major risk factor for CHD) Greater than or equal to 60 mg/dL: High HDL cholesterol ( negative risk factor for CHD) HDL - cholesterol is affected by a number of factors, e.g. smoking, excerise, hormones, sex and age. CHOLESTEROL 142 0 - 240 mg/dL [facility] TRIGLYCERIDES 106 30 - 160 mg/dL [facility] LDL 54 50 - 129 mg/dL [facility] Comment: LDL levels in terms of risk for coronary heart disease: <100 mg/dL: Optimal 100-129 mg/dL: Near or above optimal 130-159 mg/dL: Borderline high 160-189 mg/dL: High >190 mg/dL: Very High CARDIAC RISK RATIO 2.1(L) 3.4 - 5.0 C [facility] Blood 06/09/2024 9:07 AM EDT 06/09/2024 9:09 AM EDT us Jordan A Bigda DO LAB BLOOD ORDERABLES Final Resul t [address] [address] * (ABNORMAL) Comprehensive metabolic panel (06/09/2024 9:07 AM EDT) Pathologist [facility] SODIUM 138 133 - 146 mmol/L [facility] POTASSIUM 4.7 3.3 - 5.1 mmol/L [facility] CHLORIDE 102 96 - 108 mmol/L [facility] CO2 26 21 - 35 mmol/L [facility] BUN 18 6 - 19 mg/dL [facility] CREATININE 1.10 0.5 - 1.5 mg/dL [facility] GLUCOSE 165(H) 70 - 99 mg/dL [facility] ALBUMIN 4.0 3.9 - 4.8 g/dL [facility] TOTAL PROTEIN 7.7 6.5 - 8.0 g/dL [facility] CALCIUM 9.1 8.4 - 10.3 mg/dL [facility] ALKALINE PHOSPHATASE 99 39 - 117 U/L [facility] TOTAL BILIRUBIN 0.3 0.0 - 1.2 mg/dL [facility] AST 21 0 - 37 U/L [facility] ALT 13 0 - 40 U/L [facility] GLOBULIN 3.7 1 - 4.8 g/dL [facility] EGFR 69 >59 mL/min/1.7 3m2 [facility] Comment:Estimated glomerular filtration rate calculated using the CKD-EPI refit equation. ANION GAP 15 10 - 20 mmol/L [facility] Blood 06/09/2024 9:07 AM EDT 06/09/2024 9:09 AM EDT us Jordan A Bigda DO LAB BLOOD ORDERABLES Final Resul t Performing Organization Address [facility] de Phone Number [address] [address] * (ABNORMAL) Hemoglobin A1c (06/09/2024 9:07 AM EDT) HEMOGLOBIN A1C 7.5(H) 4.3 - 5.8 % [facility] Blood 06/09/2024 9:07 AM EDT 06/09/2024 9:09 AM EDT us Jordan A Bigda DO LAB BLOOD ORDERABLES Final Resul t Performing Organization Address [facility] Co de Phone Number [address] [address] * (ABNORMAL) Hemoglobin A1c (03/18/2024 9:39 AM EST) HEMOGLOBIN A1C 7.3(H) 4.3 - 5.8 % [facility] Blood 03/18/2024 9:39 AM EST 03/18/2024 9:41 AM EST us Jordan A Bigda DO LAB BLOOD ORDERABLES Final Resul t Performing Organization Address [facility] de Phone Number [address] [address] * (ABNORMAL) Hemoglobin A1c (12/18/2023 11:02 AM EDT) HEMOGLOBIN A1C 7.2(H) 4.3 - 5.8 % [facility] Blood 12/18/2023 11:0 2 AM EDT 12/18/2023 11:06 AM EDT us Jordan Trevino DO LAB BLOOD ORDERABLES Final Resul t Performing Organization Address City/[facility]/ZIP Co de Phone Number [address] [address] documented in this encounter Visit Diagnoses Diagnosis Type 2 diabetes mellitus without complication, unspecified whether intermediate insulin use- Primary History of colonic polyps Personal history of colonic polyps documented in this encounter Care Teams Hazmat Cdl A Driver Relationship Specialty Start Date End Date Jordan Trevino DO [email or web address] PCP - General Internal Medicine 02/05/17 documented as of this encounter Additional Source Comments The information contained in this document represents components of the legal health record. It is not the complete legal health record.[facility]
--- OUTSIDE RECORDS SUMMARY | 2024-12-25 07:50 | XMS_ITS | Continuity of Care Document ---
Author Organization [place] - [facility], [facility] Address [address] [place] [address] [place] [address] Assessment Encounter Date Assessment Date Assessment LastModified by Organization Details LastModified Time 12/24/2024 12/24/2024 Patient presente d to office today for [...] reduce health risks and promote healthy living. Not available 12/08/2024 16:35:18 Plan of Treatment Reminders Order Date Submit Date Provider Last Modified By Organization Details Last Modified Time Details Appointments FOLLOW UP 15 2024 02:30P M DR RIOS Not available Not available Not available Lab hemoglobi n, gastroint estinal, stool 2024 025 [facility], [address] [place] [address], [id number], 12/24/2024 12:14:27 CBC w/ auto diff 2024 025 [facility], [address] [place] [address], [place], [address], 12/24/2024 12:14:27 CMP, serum or plasma 2024 025 [facility], [address] [place] [address], [id number], 12/24/2024 12:14:27 vitamin B12, serum 2024 025 [facility], [address] [place] [address], [id number], 12/24/2024 12:14:27 C-reactiv e protein, quantitat lali, serum or plasma 2024 [facility], [address] [place] [address], [id number], 12/24/2024 12:14:27 CBC 2024 [facility], [address] [place] [address], [id number], 12/24/2024 12:14:27 CMP, serum or plasma 2024 [facility], [address] [place] [address], [id number], 12/24/2024 12:14:27 ESR (erythroc yte sedimenta tion rate), blood 2024 [facility], [address] [place] [address], [id number], 12/24/2024 12:14:27 TSH, serum or plasma 2024 025 [facility], [address] [place] [address], [id number], 12/24/2024 12:14:27 testoster one, total, serum 2024 025 [facility], [address] [place] [address], [id number], 12/24/2024 12:14:27 vitamin D, 25-hydrox y, total, serum 2024 025 [facility], [address] [place] [address], [id number], 12/24/2024 12:14:27 Referral None recorded. Procedures None recorded. Surgeries None recorded. Imaging None recorded. Medication Orders terbinafi ne HCl 250 mg tablet 2024 025 [facility] [id number], [address] [place], [address], 12/24/2024 12:13:11 Patient TargetsNo targets recorded. Patient Instructions Encounter Date Encounter Id Patient Instructions Last Modified By Organization Details Last Modified Time 12/24/2024 [id number] advance care planning: care instructions Not available 12/24/2024 12:13:06 Discussed and explained advance directives such as standard forms to the . Face to face discussion lasted for a duration of ___ minutes. Not available 12/08/2024 16:35:18 Reason for Referral None Reported. Results Created Date Observation Date Name Description Value Unit Range Abnormal Flag Note LastModifiedBy Organization Detail LastModifiedTime Result Notes None recorded. Problems Name Problem SNOMED Code Status Onset Date Resolution Date Notes Provider Name and Address Organization Details Recorded Time Type 2 diabetes mellitus 45632603 Active 2017 Shelley banda [facility] 5 08:37:25 Neuropath y due to diabetes mellitus 722873559 Active 2017 Shelley banda [facility] 5 08:37:25 Ankle edema 65005466 Active 2017 Shelley banda [facility] 5 08:37:25 Sprain of ankle 38663029 Active 2017 Shelley banda [facility] 5 08:37:03 Essential hypertens ion 18004190 Active 2017 Shelley banda [facility] 5 08:37:25 Obesity 607813907 Active 2017 Shelley banda [facility] 5 08:37:25 Kidney stone 04428532 Active 2019 Jordan Rios, DO [address], [place], [address], [place] [facility] 0 09:38:07 Oncocytom a of right kidney 395349505694 9107 Active 2020 Jordan Rios, [address], [address], [facility] 1 15:35:45 Diverticu litis 750039951 Active 2021 Shelley Zamora null, [facility] 5 08:37:25 Anaplasmo sis 09905079 Active 2021 Shelley Zamora null, [facility] 5 08:37:25 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 99003053 [facility] 2021 [facility] 5 08:37:25 Pain in scrotum 94483406 Active 2022 Jordan Rios, [address], [address], [facility] 5 14:39:43 Acute urinary tract infection 954985191 Active 2022 Shelley Zamora [facility] 5 08:37:03 Meralgia paresthet ica of right leg 521780209686 108 Active 2022 Shelley Zamora [facility] 5 08:37:25 Dysuria 07586754 Active 2022 [facility] 5 08:37:25 Gout 74170194 Active 2022 [facility] 5 08:37:25 Urinary bladder pain 33172037 Active 2022 Shelley Zamora [facility] 5 08:37:25 Vitamin D deficienc y 28101215 Active 2022 Shelley Zamora [facility] 5 08:37:25 Disorder of vitamin B12 755150118 Active 2022 Shelley banda [facility] 5 08:37:25 Fatigue 90910278 Active 2022 Jordan Rios, [address] [place] [address], [id number], [facility] 5 12:12:39 Paronychi a of toe 702044626 [facility] 2022 [facility] 5 08:37:03 Diverticu losis of colon 651308641 Active 2023 [facility] 5 08:37:25 Pain in testicle 67438657 [facility] 2023 [facility] 5 08:37:03 Pelvic and perineal pain 184856622 Active 2023 [facility] 5 08:37:03 Claustrop hobia 69399039 Active 2023 [facility] 5 08:37:25 Prostatit is 3147193 Active 2023 [facility] 5 08:37:25 Lesion of right eyelid 949475279228 68341 Active 2024 Jordan Rios, [address] [place] [address], [id number], [facility] 5 14:49:18 Problem Notes None recorded. Procedures Surgical History Date Name Laterality Status Provider Name and Address Organization Details Recorded Time 8 Colonoscopy completed Dottie Robertson [facility] 01/07/2019 10:43:08 0 Colonoscopy completed Anny Cook [facility] 03/18/2018 10:14:53 Imaging Results None recorded. Procedure [...] Not Available terbinafine HCl 250 mg tablet Take 1 tablet every day by oral route for 30 days. 2024 active Not Available Not Available Not Avai lable tamsulosin 0.4 mg capsule active Not Available [...] Not Available Not Available Not Avai lable mupirocin 2 % topical ointment APPLY SMALL [...] Not Available rosuvastati n 5 mg tablet TAKE ONE TABLET BY [...] height Body mass index (BMI) Body weight Oxygen saturation Oxygen saturation in Arterial blood by Pulse oximetry Heart rate Systolic And Diastolic Provider Name and Address Organization Details Last Updated DateTime 5 186.06 cm 33.7 kg/m2 379387. 24 g 97 % 97 % 87 /min 128/76 mm[Hg] Argenis Abdul [facility] 5 11:54:00 Social History Question Answer Notes LastModified by Organizat ion Details LastModified Time Tobacco Smoking Status Never Smoker Not Available [facility] 02/03/2020 03:36:23 What Was The Date Of Your Most Recent Tobacco Screening? 12/24/2024 Information not available 12/24/2024 Sex: Unknown Functional Status Question Answer Note [...] mcg/0.3 mL dose 03/07/2021 completed Not Available [facility] 3 16:38:46 COVID-19, mRNA, LNP-S, PF, 30 mcg/0.3 mL dose 07/02/2020 completed Not Available [facility] 3 16:38:46 COVID-19, mRNA, LNP-S, PF, 30 mcg/0.3 mL dose 07/24/2020 completed Not Available [facility] 3 16:38:46 Past Encounters Encounter ID Performer Location Encounter Start Date Encounter Closed Date Diagnosis/Indication Diagnosis SNOMED-CT Code Diagnosis ICD10 Code Diagnosis IMO Codes Diagnosis Note [id number] Jordan Rios DO [facility] [address] [facility] [facility] [address] 12/24/2024 11:47:50 12/24/2024 15:53:54 Screening for cardiovascular system disease 928639429 Z13.6 here and doing well Screening for malignant neoplasm of colon 034992167 Z12.11 per gi appt Depression screening 171 335589 Z13.31 PHQ2 normal today Essential hypertension 58969529 I10 currently stable overall checking bp overall is ok at home denies major sx no cp no sob Type 2 chris betes mellitus 56956265 E11.9 A1C is 7.5 was7.2 was7.1 and prior to 6.9 to 7.3 he was 6.9he has been c/o no energyWeig ht stable, will work on losing weight and more exercise we are wondering whether he has an ongoing issue underlying given recent scrotal discomfort Onychomyco sis of toenails 535498272 B35.1 Preventive procedure 169 408612 Z00.00 51645044 here for recheck and is doing ok his exam is difficult due to his obesity Fatigue 27328682 R53.82 834805 Health Concerns Section Related Observation LastModified by Organization Detai ls LastModified Time None Recorded Concern Status LastModified by Organization Details LastModified Time None Recorded Payers Encounter Date Sequence Insurance Name Policy Number Policy Osorio Covered Member ID Osorio Member ID Guarantor Name 12/24/2024 2 [place] [id number] Yovany Mccarthy [id number] Yovany Mccarthy 12/24/2024 1 [place] [employer] Yovany Mccarthy [id number] Yovany Mccarthy Notes Date Note Type Note Provider Name and Address Organization Details Recorded Time 5 text/htm l Care Management - DiabetesReported by PatientHPIFor self care, patient reportsside effects from medications: but reportsseeing eye doctor yearly for dilated eye exam,checking feet regularly,normal range of home blood sugars (in the low 100s),no side effects from medications,hemoglobin a1c goal: <7.5, andhemoglobin a1c levels have been: 7-8. For prognosis, patient reportsexpected outcome: improveandprognosis: good. For associated symptoms, patient reportssymptoms are usually well controlled,no fatigue,no dizziness,no excessive sweating,no headaches,no confusion,no increased thirst,no increased appetite,no increased urination,no blurred vision,no numbness of feet, andno calluses on feet. Care Management - HypertensionReported by PatientHPIFor self care, patient reportsnot under emotional stress. For severity, patient reportssymptoms are improvinganddoes not interfere with daily activities. For associated symptoms, patient reportsno dizziness,no lightheadedness,no chest pain,no shortness of breath,no palpitations,no edema,no calf muscle cramps,no blurred vision,no confusion,no headaches, andno fatigue. Medicare Annual Wellness VisitReported by PatientSocial/Behavioral HistoryFor diet and nutrition, patient reportshealthy diet. For fracture risk, patient reportsno history of fractures,no recent explained fracture,no sudden unexplained fractures, andno previous musculoskeletal injuries. For physical activity, patient reportsexercises on a regular basis,recent increase in physical activity, andgood physical condition.Mental Status:For depression risk, patient reportsnever feels sad, empty, or tearful,no loss of interest in activities,no significant changes in weight,no sleep disturbances or insomnia,no agitation,no loss of energy,no feelings of worthlessness or guilt,no thoughts of suicide,no history of depression, andno history of mood disorders. For orientation, patient reportsno disorientation to time,no disorientation to date, andno disorientation to place. For concentration and memory, patient reportsno decreased concentrating ability,no memory lapses or loss, anddoes not forget words. For speech/motor difficulties, patient reportsno speech difficulties,no difficulty expressing formulated concepts,no difficulty with fine manipulative tasks,no difficulty writing/copying,no slowed reaction time, anddoes not knock things over when trying to pick them up.Functional AbilityFor hearing, patient reportsno loss of hearing. For vision, patient reportsno vision problems. For activities of daily living, patient reportsable to bathe with limited or no assistance,able to contol urination and bowels,able to dress with limited or no assistance,able to feed self with limited or no assistance,able to get out of chair or bed with limited or no assistance,able to groom with limited or no assistance, andable to toilet with limited or no assistance. For instrumental activities of daily living, patient reportsable to do house work with limited or no assistance,able to grocery shop with limited or no assistance,able to manage medications with limited or no assistance,able to manage money with limited or no assistance,able to prepare meals with limited or no assistance, andable to use the phone with limited or no assistance. For falls risk assessment, patient reportsno frequent falls while walking,no fall in the past year,no fall since last visit, andno dizziness/vertigo. For home safety, patient reportsno unsafe dyan hazzards,no unsafe stairs,no unsafe gas appliances,working smoke/co detectors,wears protective head gear for biking/high velocity,use of seatbelts,practicing 'safer sex',no vision or hearing loss while driving,no fire arms,has hand bars in the bathroom/shower, andgood lighting in the home.ROS as noted in the HPI Jordan Rios, DO [address], [place], [address], [facility] 12/24/2024 13:31:28
--- OUTSIDE RECORDS SUMMARY | 2024-12-25 07:50 | XMS_ITS | Encounter Summary ---
Author Organization [facility] Address [address] [place] [address] Phone Care Team Providers Care Lead Network Architect Name Role Phone Jordan Trevino Primary Care Provider [phone] Encounter Details Date Type Department Care Team (Late Contact Info) Description 03/22/2018 Procedure Pass [facility] Admitting Dept Virtual Department [address] [place] [address] Social History Tobacco Use Types Packs/Day Years [...] Pass [facility] Admitting [facility] Virtual Department [address] [place] [address] 03/30/2025 10:15 AM EST Hospital Encounter [facility] Virtual Department [address] [place] [address] Isiah Randhawa MD [address] [place] [phone] 03/30/2025 10:15 AM EST - 03/30/2025 10:30 AM EST Surgery [facility] Admitting Dept Virtual Department [address] [place] [address] Isiah Randhawa MD [address] [place] [id number] [email or web address] COLONOSCOPY Scheduled Procedures Name Priority Associated Diagnoses Date/Ti me COLONOSCOPY History of colonic polyps 03/30/2025 10:15 AM EST documented as of this encounter Visit Diagnoses Not on filedocumented in this encounter Additional Health Concerns Infection Onset Date Last Indicated Resolved Time CoV-Risk 09/17/2021 09/17/2021 09/28/2021 1:22 AM EDT documented as of this encounter Care Teams Lead Network Architect Relationship Specialty Start Date End Date Jordan Trevino DO [email or web address] PCP - General Internal Medicine 02/05/17 documented as of this encounter Additional Source Comments The information contained in this document represents components of the legal health record. It is not the complete legal health record.[facility]
--- OUTSIDE RECORDS SUMMARY | 2024-12-25 07:50 | XMS_ITS | Encounter Summary ---
Author Organization [facility] Address [address] [place] [address] Phone Care Team Providers Care Pbx Mechanic Name Role Phone Jordan Trevino DO Primary Care Provider [phone] Encounter Details Date Type Department Care Team ([facility] Contact Info) Description 11/28/2019 Transcribe Orders Virtual Department [address] [place] [address] Jordan Trevino DO [address] [place] [address] [place] [address] [email or web address] Cervicalgia (Primary Dx) Social History Tobacco Use [...] [facility] Virtual Department [address] [place] [address] 03/30/2025 10:15 AM EST Hospital Encounter [facility] Virtual Department [address] [place] [address] Isiah Randhawa MD [address] [place] [phone] 03/30/2025 10:15 AM EST - 03/30/2025 10:30 AM EST Surgery [facility] Admitting [facility] Virtual Department [address] [place] [address] Isiah Randhawa MD [address] [place] [phone] [email or web address] COLONOSCOPY Scheduled Procedures Name Priority [...] documented as of this encounter Care Teams Pbx Mechanic Relationship Specialty Start Date End Date Jordan Trevino DO [email or web address] PCP - General Internal Medicine 02/05/17 documented as of this encounter Additional Source Comments The information contained in this document represents components of the legal health record. It is not the complete legal health record.[facility]
--- NOTE | 2024-12-25 08:08 | A.OFFVIS_ITS ---
Intake Visit Reasons: Scrotal pain Intake Note: New patient presents today for initial visit for scrotal pain Urology Medication:None Blood Thinner:None Antibiotic Allergies:None Allergies No Known Drug Allergies Allergy (Unknown, Verified 12/25/24 08:11) Unknown Medication List - Last Reconciled 12/25/24 by Jumana Cespedes MD blood sugar diagnostic (OneTouch Verio test strips) As directed lisinopril 5 mg PO DAILY metformin 1,000 mg PO DAILY rosuvastatin 5 mg PO DAILY semaglutide (Ozempic) 1 mg (0.75 mL) subcut QWEEK HPI Comments Details: 12/25/2024-Josesito is a 79-year-old male presenting as a new patient due to chronic scrotal/testicular pain. He had a screw scrotal ultrasound in review of his referral notes he had a scrotal ultrasound in 2022 that was unremarkable. History of Present Illness The patient is a 78-year-old female presenting with chronic scrotal/testicular pain. The pain has persisted for about 10 years, described as nagging and sometimes squeezing, with nonspecific localization between the testicles. It worsens with sitting or driving, and relief is achieved with Tylenol, especially at night. Patient states he has seen prior urologist for this concern he was referred to pelvic floor physical therapy. The patient has gives a history of kidney stones, which have been passed naturally, and a benign renal tumor identified via CT scan. Type 2 diabetes mellitus is present, influencing nocturnal urinary frequency, and there is a history of gout, previously treated with allopurinol. Results - Ultrasound of the scrotum in 2022: Unremarkable - CT scan: Identified a small renal tumor, biopsy negative Plan 1. Chronic Scrotal/Testicular Pain - A repeat ultrasound of the testicles will be conducted to reassess the condition. - Continuation of pelvic floor exercises is encouraged as they have provided some relief. 2. History Of Kidney Stones - A renal ultrasound will be performed to check for any new stones or changes. 3. Preventative Care: Psa Screening - PSA screening will be conducted as part of preventative care. 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 Pain in testicle Prostatitis Claustrophobia Surgical History H/O colonoscopy Review of Systems Const All systems reviewed & are unremarkable except as noted in HPI and below Reports no additional complaints Eyes Reports no additional complaints ENT Reports no additional complaints Card Reports no additional complaints Resp Reports no additional complaints GI Reports no additional complaints Reports as per HPI Musc Reports no additional complaints Skin/Breast Reports system reviewed and no additional complaints, except as documented Neuro Reports no additional complaints Psych Reports no additional complaints Endo Reports no additional complaints Akash/Lymph Reports no additional complaints Aller/Immun Reports no additional complaints Physical Exam Const General: healthy appearing, no acute distress and well developed Orientation/consciousness: patient oriented x3 HEENT Head: Yes normocephalic and Yes atraumatic Eyes Conjunctivae: conjunctivae normal Neck Neck: Yes normal visual inspection Chest Chest palpation & inspection: normal inspection of the chest Resp Effort & Inspection: normal respiratory effort GI Inspection: Yes normal to inspection Neuro General: patient oriented x3 Psych Appearance: grossly normal Affect: normal affect Assessment & Plan Assessment & Plan (1) BPH (benign prostatic hyperplasia): Code(s): N40.0 - Benign prostatic hyperplasia without lower urinary tract symptoms Category: Medical (2) Pelvic pain: Code(s): R10.2 - Pelvic and perineal pain Category: Medical (3) Pain in testicle: Code(s): N50.819 - Testicular pain, unspecified Category: Medical (4) Screening PSA (prostate specific antigen): Code(s): Z12.5 - Encounter for screening for malignant neoplasm of prostate Category: Medical Plan Plan 1. Chronic Scrotal/Testicular Pain - A repeat ultrasound of the testicles will be conducted to reassess the condition. - Continuation of pelvic floor exercises is encouraged as they have provided some relief. 2. History Of Kidney Stones - A renal ultrasound will be performed to check for any new stones or changes. 3. Preventative Care: Psa Screening - PSA screening will be conducted as part of preventative care. Orders: Orders US scrotum Today N50.819 - Testicular pain, unspecified PSA,Total (Free>4and<10) Today N40.0 - Benign prostatic hyperplasia without lower urinary tract symptoms, Z12.5 - Encounter for screening for malignant neoplasm of prostate US retroperitoneal comp Today N40.0 - Benign prostatic hyperplasia without lower urinary tract symptoms, R10.2 - Pelvic and perineal pain Medications: New blood sugar diagnostic (OneTouch Verio test strips) As directed 50 ea 0RF semaglutide (Ozempic) 1 mg (0.75 mL) subcut QWEEK 3 mL 0RF rosuvastatin 5 mg PO DAILY 60 tabs 0RF lisinopril 5 mg PO DAILY 60 tabs 0RF metformin 1,000 mg PO DAILY 90 tabs 0RF Patient Instructions: The patient had an opportunity to ask questions regarding treatment plan. The patient expressed understanding and agreement with the above treatment plan. The patient is aware they should contact our office by phone for worsening of their current condition or the appearance of new symptoms. Compliance is encouraged with any medications and followup testing that is ordered. It is a privilege to be allowed the opportunity to participate in the urologic care of your patient. If you have any questions or concerns regarding treatment for the above conditions please do not hesitate to contact me. The office telephone contact is [phone]. This note is constructed in part using voice recognition software. While every effort has been made to ensure accuracy applications programmer analyst errors may have been included. Yours sincerely, Jumana Cespedes MD Scribe Plan - Not visible on output: Patient was informed and verbally consented to the use of an ambient scribe for clinic note documentation during this visit. Coding Level of Care Code New Pt Level 4 (01868) Diagnoses BPH (benign prostatic hyperplasia) N40.0 Pelvic pain R10.2 Pain in testicle N50.819 Screening PSA (prostate specific antigen) Z12.5
== END 2024-12-25 08:59 | disposition home or self-care (01) ==
LOC: HO.HUSH 07:46
PROVIDERS: PCP Internal Medicine; Visit Provider Urology
DX: N40.0 Benign prostatic hyperplasia without lower urinary tract symptoms (principal); R10.2 Pelvic and perineal pain; N50.819 Testicular pain, unspecified; Z12.5 Encounter for screening for malignant neoplasm of prostate
CPT/HCPCS: 99204

== ENCOUNTER → 2024-12-25 07:45 | Outpatient (BNVA) | payer MEDICARE, SELFPAY | PROVIDERS: PCP Internal Medicine; Visit Provider Urology | DX: N40.0 Benign prostatic hyperplasia without lower urinary tract symptoms (principal); R10.2 Pelvic and perineal pain; N50.819 Testicular pain, unspecified; Z12.5 Encounter for screening for malignant neoplasm of prostate | CPT/HCPCS: 81003; 99202 ==

== ENCOUNTER 2024-12-31 18:36 | Outpatient (REF) | payer MEDICARE, SELFPAY ==
--- OUTSIDE RECORDS SUMMARY | 2024-12-31 18:39 | XMS_ITS | Data Portability ---
Author Organization [facility] Sophie Internal Medicine, Telehealth Patient Home Address [address] [place] [address] Assessment Encounter Date Assessment Date Assessment LastModified by Organization Details LastModified Time 12/26/2023 12/26/2023 [id number] [place] [id number] ([place]) MDM MODERATE MUST MEET 2 OUT OF [...] COVERED Not available 12/26/2023 14:54:28 03/19/2024 03/19/2024 [id number] [place] [id number] ([place]) MDM MODERATE MUST MEET 2 OUT OF [...] COVERED Not available 03/19/2024 13:44:28 06/11/2024 06/11/2024 [id number] [place] [id number] ([place]) MDM MODERATE MUST MEET 2 OUT OF [...] THAT IS COVERED Not available 06/11/2024 14:04:36 09/23/2024 09/23/2024 [id number] [place] [id number] ([place]) MDM MODERATE MUST MEET 2 OUT OF [...] EACH ELEMENT THAT IS COVERED Not available 09/23/2024 14:43:43 12/24/2024 12/24/2024 Patient presente d to office [...] FOLLOW UP 15 2024 02:30P M DR BIGDA Not available Not available Not available Lab hemoglobi n, gastroint estinal, stool 2024 025 [facility], [address] [place] [address], [id number], 12/24/2024 12:14:27 CBC w/ auto diff 2024 025 [facility], [address] [place] [address], [id number], 12/25/2024 12:14:33 CMP, serum or plasma 2024 025 [facility], [address] [place] [address], [id number], 12/24/2024 12:14:27 vitamin B12, serum 2024 025 [facility], [address] [place] [address], 15[address], 12/25/2024 12:14:33 C-reactiv e protein, quantitat lali, serum or plasma 2024 025 [facility], [address] [place] [address], [id number], 12/24/2024 12:14:27 CBC 2024 025 [facility], [address] [place] [address], [address], 12/24/2024 12:14:27 CMP, serum or plasma 2024 025 [facility], [address] [place] [address], [id number], 12/25/2024 12:14:33 ESR (erythroc yte sedimenta tion rate), blood 2024 025 [facility], [address] [place] [address], [id number], 12/24/2024 12:14:27 TSH, serum or plasma 2024 025 [facility], [address] [place] [address], [id number], 12/24/2024 12:14:27 testoster one, total, serum 2024 025 [facility], [address] [place] [address], [address], 12/29/2024 12:21:50 vitamin D, 25-hydrox y, total, serum 2024 025 [facility], [address] [place] [address], [address]887, 12/24/2024 12:14:27 uric acid, serum or plasma 2024 025 [facility], [address] [place] [address], [address], 07/02/2024 12:48:46 Referral dermatolo gist referral 2024 025 sandro Nguyen MD, [address] [place], [address], 09/24/2024 08:45:08 urologist referral 2024 025 sandro Dunn MD, [address] [place] [address], [facility] [address], [address], 10/21/2024 09:21:48 Procedures None recorded. Surgeries None recorded. Imaging MRI, pelvis, w/o contrast 2023 024 [email or web address] [facility] [address], [address], 01/22/2024 08:29:20 Medication Orders terbinafi ne HCl 250 mg tablet 2024 025 [facility], [address] [facility], [place], [address], 12/24/2024 12:13:11 lorazepam 1 mg tablet 2023 024 [email or web address] [facility], [address] [facility], [place], [address], 06/11/2024 13:45:56 Patient TargetsNo targets recorded. Patient Instructions Encounter Date Encounter Id Patient Instructions Last Modified By Organization Details Last Modified Time 12/26/2023 [id number] gout: care instructions Not available 12/26/2023 15:02:29 learning about type 2 diabetes Not available 12/26/2023 15:02:29 type 2 diabetes: care instructions Not available 12/26/2023 15:02:29 06/11/2024 [id number] gout: care instructions Not available 06/11/2024 14:07:02 learning about type 2 diabetes Not available 06/11/2024 14:07:02 type 2 diabetes: care instructions Not available 06/11/2024 14:07:02 high blood pressure: care instructions Not available 06/11/2024 14:07:02 learning about high blood pressure Not available 06/11/2024 14:07:02 12/24/2024 [id number] advance care planning: care instructions Not available 12/24/2024 12:13:06 Discussed and explained advance directives such as standard forms to the . Face to face discussion lasted for a duration of ___ minutes. Not available 12/08/2024 16:35:18 Reason for Referral Urologist Referral for Pain in scrotum Referring Physician: Jordan Trevino, Internal Medicine, Encounter Date: 09/23/2024 Staff Developer Referral for L esion of right eyelid Referring Physician: Jordan Trevino, Internal Medicine, Encounter Date: 09/23/2024 Results Created Date Observation Date Name Description Value Unit Range Abnormal Flag Note LastModifiedBy Organization Detail LastModifiedTime 06/10/1906/09/2024 HbA1c (hemo globi n A1c), blood A1C 7.5 abnormal Not Available [facility] [address] [facility], [place], [address], 06/09/2024 14:26:38 02/05/20 24 02/05/2024 MRI, pelvi s, w/o contr ast No observ ation record ed. [facility] [place] [address] [address], [place], [address], 03/19/2024 13:43:14 Result Notes None recorded. Problems Name Problem SNOMED Code Status Onset Date Resolution Date Notes Provider Name and Address Organization Details Recorded Time Type 2 diabetes mellitus 53862610 Active 2017 Shelley banda [facility] 5 08:37:25 Neuropath y due to diabetes mellitus 649241837 Active 2017 Shelley banda [facility] 5 08:37:25 Ankle edema 04465745 Active 2017 Shelley banda [facility] 5 08:37:25 Sprain of ankle 28960521 Active 2017 Shelley banda [facility] 5 08:37:03 Essential hypertens ion 59123657 Active 2017 Shelley banda [facility] 5 08:37:25 Obesity 358584676 Active 2017 Shelley banda [facility] 5 08:37:25 Kidney stone 83778209 Active 2019 Jordan Trevino, [address] [place] [address], [address], [place] [facility] 0 09:38:07 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 5 14:39:43 Acute urinary tract infection 664327176 Active 2022 Shelley Zamora null, [facility] 5 08:37:03 Meralgia paresthet ica of right leg 039715891888 108 Active 2022 Shelley Zamora null, [facility] 5 08:37:25 Dysuria 94460320 Active 2022 Shelley Zamora null, [facility] 5 08:37:25 Gout 95634299 Active 2022 Shelley Zamora null, [facility] 5 08:37:25 Urinary bladder pain 16468567 Active 2022 Shelley Zamora null, [facility] 5 08:37:25 Vitamin D deficienc y 63736893 Active 2022 Shelley Zamora null, [facility] 5 08:37:25 Disorder of vitamin B12 017579067 Active 2022 Shelley Zamora null, [facility] 5 08:37:25 Fatigue 58782303 Active 2022 Jordan Trevino, DO [address] [place] [address], [place], [address], [facility] 5 12:12:39 Paronychi a of toe 444513906 Active 2022 Shelley Zamora null, [facility] 5 08:37:03 Diverticu losis of colon 823834404 [facility] 08:[facility] Pain in testicle 66869502 [facility] 08:37:03 Pelvic and perineal pain 652872028 Active 2023 Shelleymichelle banda, [facility] 5 08:37:03 Claustrop hobia 75754651 Active 2023 Shelleymichelle banda, [facility] 5 08:37:25 Prostatit is 8735743 Active 2023 [facility] 5 08:37:25 Lesion of right eyelid 582465838783 31028 Active 2024 Joradn Trevino [address], [address], [facility] 5 14:49:18 Anemia 981000931 Active 2024 Jordan Trevino, [address], [address], [facility] 5 22:20:46 Problem Notes None recorded. Procedures Surgical History Date Name Laterality Status Provider Name and Address Organization Details Recorded Time 8 Colonoscopy completed Dottie Robertson [facility] 01/07/2019 10:43:08 0 Colonoscopy completed Anny Cook [facility] 03/18/2018 10:14:53 Imaging Results None recorded. [...] Available Not Available Not Available amoxicillin 875 mg-maribelu m clavulanate 125 mg tablet Take 1 [...] in Arterial blood by Pulse oximetry Systolic And Diastolic Provider Name and Address Organization Details Last Updated DateTime 5 186.06 cm 32.9 kg/m2 164980. 68 g 75 /min 99 % 99 % 146/80 mm[Hg] Shelley Barrios [facility] 5 13:50:51 Date Recorded Body height Body mass index (BMI) Body weight Heart rate Oxygen saturation Oxygen saturation in Arterial blood by Pulse oximetry Systolic And Diastolic Provider Name and Address Organization Details Last Updated DateTime 5 186.06 cm 32.9 kg/m2 239419. 68 g 83 /min 98 % 98 % 140/78 mm[Hg] Gena Strong [facility] 5 14:23:56 Date Recorded Body height Body mass index (BMI) Body weight Oxygen saturation Oxygen saturation in Arterial blood by Pulse oximetry Heart rate Systolic And Diastolic Provider Name and Address Organization Details Last Updated DateTime 5 186.06 cm 33.7 kg/m2 591864. 24 g 97 % 97 % 87 /min 128/76 mm[Hg] Argenissoraya Abdul [facility] 5 11:54:00 Date Recorded Body height Body mass index (BMI) Body weight Heart rate Oxygen saturation Oxygen saturation in Arterial blood by Pulse oximetry Systolic And Diastolic Provider Name and Address Organization Details Last Updated DateTime 4 186.06 cm 33 kg/m2 625798. 28 g 77 /min 98 % 98 % 144/80 mm[Hg] Gena Strong [facility] 4 14:34:21 Date Recorded Body height Body mass index (BMI) Body weight Heart rate Oxygen saturation Oxygen saturation in Arterial blood by Pulse oximetry Systolic And Diastolic Provider Name and Address Organization Details Last Updated DateTime 4 186.06 cm 32.5 kg/m2 492552. 91 g 82 /min 94 % 94 % 138/78 mm[Hg] Yovany Long [facility] 4 13:38:00 Social History Question Answer Notes LastModified by Organizat ion Details LastModified Time Tobacco Smoking Status Never Smoker Not Available [facility] 02/03/2020 03:36:23 What Was The Date Of [...] mcg/0.3 mL dose 03/07/2021 completed Not Available [facility] 3 16:38:46 COVID-19, mRNA, LNP-S, PF, 30 mcg/0.3 mL dose 07/02/2020 completed Not Available [facility] 3 16:38:46 COVID-19, mRNA, LNP-S, PF, 30 mcg/0.3 mL dose 07/24/2020 completed Not Available [facility] 3 16:38:46 Past Encounters Encounter ID Performer Location Encounter Start Date Encounter Closed Date Diagnosis/Indication Diagnosis SNOMED-CT Code Diagnosis ICD10 Code Diagnosis IMO Codes Diagnosis Note [id number] Jordan Trevino [facility] [address] [facility], [place] [address] 09/05/2017 09:52:19 09/05/2017 11:04:34 Type 2 diabetes mellitus 50418847 E11.9 doing well overall doing a good diet and is feeling well with some wgt loss Essential hypertension 05334534 I10 [id number] Jordan Trevino DO [facility] [address] [facility], [place] [address] 12/19/2017 10:03:21 12/19/2017 11:32:01 Type 2 diabetes mellitus 20861269 E11.9 doing ok overall doing a good diet and is feeling well with some wgt loss Essential hypertension 66456491 I10 currently stable overall Adult [facility] th examination 288626112 Z00.00 discussed lab in detail Screening for cardiovascular system disease 684099293 Z13.6 here and doing well Screening for malignant neoplasm of colon 058296949 Z12.11 per gi appt Constipation 53216124 K5 9.00 to try metamucil as directed along with probiot [id number] Jordan Trevino DO [facility] [address] [facility], [place] [address] 03/18/2018 09:57:59 03/18/2018 10:48:06 Essential hypertension 49490246 I10 currently stable overall Type 2 chris betes mellitus 76062134 E11.9 doing ok overall but needs to get back on track with eating better will get back to walking etc rechk in 3 mo Hepatitis C screening 41 8436386 Z11.59 next lab draw [id number] Jordna Trevino DO [facility] [address] [facility],[place] [address] 06/25/2018 09:42:49 06/25/2018 10:44:20 Adult health examination 774595181 Z00.00 here for recheck and is doing ok his exam is difficult due to his obesity Active or passive immunization 539593015 Z23 Type 2 chris betes mellitus 23024321 E11.9 doing ok overall but needs to get back on track with eating better a1c is 7.1 and is elevated now will get back to walking etc MUST DO THIS rechk in 3 mo a long discussion re need to lose the wgt he gained and to get his sugars down Essential hypertension 37582892 I10 currently stable overall [id number] Jordan Trevino DO [facility] [address] [facility] [address] [address] 09/30/2018 14:02:36 09/30/2018 15:17:49 Essential hypertension 51877640 I10 currently stable overall denies major sx no cp no sob Type 2 chris betes mellitus 66741983 E11.9 doing ok overall but needs to get back on track with eating better a1c is 7.1 and is the same as in may will get back to walking etc MUST DO THIS rechk in 3 mo a long discussion re need to lose the wgt he gained and to get his sugars down [id number] Jordan Trevino [facility] [address] [facility],[place] [address] 01/07/2019 10:28:10 01/07/2019 11:35:43 Diverticulosis of sigmoid colon 736451904 K57.[address] of abdomen discussed with MB recommend cipro 500 mg bid x 10 days reaction to flagyl hasn't done well with augmentin in the past Diarrhea 05605696 R19.7 Type 2 chris betes mellitus 01923874 E11.65 Essential hypertension 75045410 I10 [id number] Jordan Trevino DO [facility] [address] [facility] [address],[place] [address] [facility] [place] [address] 01/17/2019 13:57:12 01/17/2019 14:54:27 Type 2 diabetes mellitus 90086521 E11.9 doing ok overall but needs to get back on track with eating better a1c is 6.9 was 7.1 and is the same as in may will get back to walking and needs to start agian lila in 3 mo a long discussion re need to lose the wgt he gained and to get his sugars down Neuropathy due to diabetes mellitus 348715158 E11.40 about the same no major issues Essential hypertension 01973678 I10 currently stable overall denies major sx no cp no sob Traveler's diarrhea 1184 0006 A04.1 [id number] Jordan Trevino [facility] [address] [facility] [address],[place] [place] [facility] [place] [address] 05/07/2019 09:50:32 05/07/2019 10:46:06 Type 2 diabetes mellitus 70074034 E11.9 A1C elevated to 7.2 due to inactivity after teeth pulling Weight stable, will work on losing weight and more exercise Essential hypertension 22854891 I10 currently stable overall denies major sx no cp no sob Neuropathy due to diabetes mellitus 227204785 E11.40 stable [id number] Jordan Trevino [facility] [address] [facility] [address] [address] 09/03/2019 09:05:30 09/03/2019 10:02:59 Neuropathy due to diabetes mellitus 798972162 E11.40 stable and has not progressed Essential hypertension 43444746 I10 currently stable overall denies major sx no cp no sob Type 2 chris betes mellitus 34298413 E11.9 A1C elevated to 7.5 due to inactivity Weight stable, will work on losing weight and more exercise we are wondering whether he has an ongoing issue Kidney stone 20206642 N2 0.0 quiet and is followed by urology needs psa Ankle edema 83178429 R60 .0 currently stable and no issue good pulses and no wounds Oral infection 221469334 K13.79 will chk lab to see if any residual infect Dysuria 87043155 R30.9 [id number] Jordan Trevino DO [facility] [address] [facility] [address],[place] [address] 11/28/2019 09:29:10 11/28/2019 10:25:13 Type 2 diabetes mellitus 08614244 E11.9 A1C elevated to 7.5 due to inactivity Weight stable, will work on losing weight and more exercise we are wondering whether he has an ongoing issue Essential hypertension 28447906 I10 currently stable overall denies major sx no cp no sob Neuropathy due to diabetes mellitus 097521757 E11.40 stable and has not progressed Neck pain 56961758 M54.2 hurts to turn neck to the left most pain is on the left [id number] Jordan Trevino [facility] [address] [facility],[place] [address] 01/16/2020 11:33:30 01/16/2020 12:02:57 Pre-surgery evaluation 383651222 Z01.818 based on exam and history the patient is cleared for surgery [id number] Jordan Trevino [facility] [address] [facility],[place] [address] 03/15/2020 08:46:20 03/15/2020 11:31:37 Essential hypertension 59842755 I10 currently stable overall checking bp overall is ok at home denies major sx no cp no sob Type 2 chris betes mellitus 80984672 E11.9 A1C is still elevated to 7.5 due to inactivity and was 7.5 last in august Weight stable, will work on losing weight and more exercise we are wondering whether he has an ongoing issue Neuropathy due to diabetes mellitus 455983099 E11.40 stable and has not progressed but had an issue on his toe right great toe has a darkened area on the nail relates he is treating area with home remedy no sx or visual evid of infection Onychomyco sis of toenails 821262091 B35.1 [id number] Jordan Trevino [facility] [address] [facility] [address],[place] [address] 08/09/2020 14:55:34 08/09/2020 16:17:21 Essential hypertension 07611497 I10 currently stable overall checking bp overall is ok at home denies major sx no cp no sob Type 2 chris betes mellitus 31613560 E11.9 A1C is still elevated to 7.4 and was 7.5 due to inactivity and was 7.5 last in august Weight stable, will work on losing weight and more exercise we are wondering whether he has an ongoing issue Diabetic p eripheral neuropathy 698900307 E11.40 seems to be about the same but is noticing some burning at night [id number] Jordan Trevino [facility] [address] [facility],[place] [address] 11/15/2020 14:17:02 11/15/2020 15:03:35 Essential hypertension 00480178 I10 currently stable overall checking bp overall is ok at home denies major sx no cp no sob Type 2 chris betes mellitus 22686154 E11.9 A1C is better at 7.3 but was 7.4 and was 7.5 due to inactivity and was 7.5 last in august Weight stable, will work on losing weight and more exercise we are wondering whether he has an ongoing issue Neuropathy due to diabetes mellitus 995776075 E11.40 stable and has not progressed [id number] Jordan Trevino [facility] [address] [facility],[place] [address] 02/16/2021 13:25:10 02/16/2021 15:57:11 Type 2 diabetes mellitus 58243298 E11.9 A1C is better at 7.5 but was 7.3 7.4 and was 7.5 due to inactivity and was 7.5 last in august Weight stable, will work on losing weight and more exercise we are wondering whether he has an ongoing issue Essential hypertension 64940683 I10 currently stable overall checking bp overall is ok at home denies major sx no cp no sob Trigger fi nger of left hand 1437718241 9138965 M65.30 getting worse and locking on him Basal cell carcinoma of skin 219994253 C44.91 Neuropathy due to diabetes mellitus 564857234 E11.40 stable and has not progressed Constipation 33011108 K5 9.00 to try metamucil as directed along with probiot as noted Dyspnea 365318371 R06.00 occurs when he lays down initially then he notices once he adjusts his pillow he feels betterhe does snore a lot Sleep apnea 51007323 G47 .30 very suspicious for NAZANIN we will get home study [id number] Jordan Trevino DO [facility] [address] [facility],[place] [address] [facility] [place] [address] 06/28/2021 15:31:15 06/28/2021 16:57:55 Neuropathy due to diabetes mellitus 723808621 E11.40 stable and has not progressed Essential hypertension 53792794 I10 currently stable overall checking bp overall is ok at home denies major sx no cp no sob Type 2 chris betes mellitus 08062229 E11.9 A1C is a bit worse at 7.8 and then at 7.5 but was 7.3 7.4 and was 7.5 due to inactivity and was 7.5 last in august Weight stable, will work on losing weight and more exercise we are wondering whether he has an ongoing issue Infection of toenail 943 1722233 0200712 B99.9 [id number] Jordan Trevino [facility] [address] [facility],[place] [address] [facility] [place] [address] 09/20/2021 08:48:07 09/23/2021 09:24:19 Diverticulitis 039991724 K57.92 believe this is what we are seeingwe are going to stop the doxy as the lyme was neg mono was pos but not sure how this fitsaugmen tin will be used Essential hypertension 74931923 I10 currently stable overall checking bp overall is ok at home denies major sx no cp no sob Type 2 chris betes mellitus 85978597 E11.9 A1C is pending it was at 7.8 and then at 7.5 but was 7.3 7.4 and was 7.5 due to inactivity and was 7.5 last in august Weight stable, will work on losing weight and more exercise we are wondering whether he has an ongoing issue [id number] Jordan Trevino [facility] [address] [facility],[place] [address] 11/25/2021 10:37:45 11/25/2021 11:40:08 Type 2 diabetes mellitus 92308988 E11.9 A1C is at 7.8 and then at 7.5 but was 7.3 7.4 and was 7.5 due to inactivity and was 7.5 last in august Weight stable, will work on losing weight and more exercise we are wondering whether he has an ongoing issue Essential hypertension 54849239 I10 currently stable overall checking bp overall is ok at home denies major sx no cp no sob Depression screening 171 428462 Z13.31 PHQ2 normal today [id number] Jordan Trevino [facility] [address] [facility],[place] [address] 02/27/2022 10:05:28 02/27/2022 10:48:52 Type 2 diabetes mellitus 52711357 E11.9 A1C is down to 7.1 and this is trulicity at 7.8 and then at 7.5 but was 7.3 7.4 and was 7.5 due to inactivity and was 7.5 last in august Weight stable, will work on losing weight and more exercise we are wondering whether he has an ongoing issue Essential hypertension 94431312 I10 currently stable overall checking bp overall is ok at home denies major sx no cp no sob Diverticulitis 591627958 K57.92 doing much better and is feeling good [id number] Jordan Trevino [facility] [address] [facility],[place] [address] 06/02/2022 10:57:41 06/02/2022 12:25:39 Type 2 diabetes mellitus 19742123 E11.9 A1C is down to 7.1 and prior was a1c of 7.1 and this is trulicity at 7.8 and then at 7.5 but was 7.3 7.4 and was 7.5 due to inactivity and was 7.5 last in august Weight stable, will work on losing weight and more exercise we are wondering whether he has an ongoing issue underlying given recent UTI Essential hypertension 91943961 I10 currently stable overall checking bp overall is ok at home denies major sx no cp no sob Neuropathy due to diabetes mellitus 657070100 E11.40 stable and has not progressed Pain in scrotum 21653394 N50.82 will need a spec referral consider [place] Acute urin jhon tract infection 666902215 N39.0 has been treated so we will check Meralgia p aresthetica of right leg 9590950814 50100 G57.11 Tick bite [id number] W57.X XXA [id number] Jordan Trevino [facility] [address] [facility],[place] [address] 08/07/2022 11:52:13 08/08/2022 15:12:15 Type 2 diabetes mellitus 37741747 E11.9 A1C is down to 7.3 was [...] issue underlying given recent UTI Essential hypertension 52417174 I10 currently stable overall checking bp overall is ok at home denies major sx no cp no sob Acute urin jhon tract infection 874759668 N39.0 has been treated so we will check Gout 37092708 M10.9 discusses gout etiology and diet and allopurino l we will chke lab next visitand hope cont allopurino l for now Kidney stone 34774376 N2 0.0 quiet and is followed by urology needs psa [id number] Jordan Trevino [facility] [address] [facility],[place] [address] 09/26/2022 14:01:46 09/26/2022 15:18:06 Type 2 diabetes mellitus 04386942 E11.9 A1C is down to 6.9 he [...] underlying given recent scrotal discomfort Essential hypertension 55967234 I10 currently stable overall checking bp overall is ok at home denies major sx no cp no sob Advance care planning 71 5013495 Z71.89 utd Pain in scrotum N50.82 [place] [id number] Jordan Trevino [facility] [address] [facility],[place] [address] [facility] [place] [address] 12/25/2022 10:50:19 12/25/2022 12:10:57 Essential hypertension 72649619 I10 currently stable overall checking bp overall is ok at home denies major sx no cp no sob Type 2 chris betes mellitus 64781516 E11.9 A1C is up to 7.3 he was 6.9 he was 7.3 was 7.1 7.5 last in has been c/o no energyWeig ht stable, will work on losing weight and more exercise we are wondering whether he has an ongoing issue underlying given recent scrotal discomfort Urinary bladder pain 158 79688 R39.82 Vitamin D deficiency 347 21639 E55.9 Disorder o f vitamin B12 757587831 E53.8 Fatigue 62900564 R53.83 [id number] Jordan Trevino [facility] [address] [facility],[place] [facility] [place] [address] 03/21/2023 08:59:40 03/21/2023 10:21:10 Type 2 diabetes mellitus 43309311 E11.9 A1C is up to 7.3 he was 6.9 he was 7.3 was 7.1 7.5 last in has been c/o no energyWeig ht stable, will work on losing weight and more exercise we are wondering whether he has an ongoing issue underlying given recent scrotal discomfort [id number] Jordan Trevino [facility] [address] [facility], ite [facility] [place] [address] 05/29/2023 14:48:05 05/29/2023 16:08:28 Essential hypertension 81953494 I10 currently stable overall checking bp overall is ok at home denies major sx no cp no sob Type 2 chris betes mellitus 38017886 E11.9 A1C is 7.1 and prior to 6.9 to 7.3 he was 6.9 he was 7.3 was 7.1 7.5 last in has been c/o no energyWeig ht stable, will work on losing weight and more exercise we are wondering whether he has an ongoing issue underlying given recent scrotal discomfort Diverticul osis of colon 515266644 K57.30 quiet and doing good [id number] Jordan Trevino [facility] [address] [facility],[place] [address] 09/03/2023 13:27:46 09/03/2023 14:48:49 Adult health examination 568579036 Z00.00 here for recheck and is doing ok his exam is difficult due to his obesity Screening for cardiovascular system disease 231430411 Z13.6 here and doing well Screening for malignant neoplasm of colon 364222835 Z12.11 per gi appt Essential hypertension 06217687 I10 currently stable overall checking bp overall is ok at home denies major sx no cp no sob Hypercholesterolemia 136 98519 E78.00 Pain in testicle 0891919 9 N50.819 Pelvic and perineal pain 174849720 R10.2 [id number] Jordan Trevino [facility] [address] [facility], [place] [address] 12/26/2023 14:29:00 12/26/2023 15:08:11 Type 2 diabetes mellitus 66914701 E11.9 A1C is 7.2 was7.1 and prior to 6.9 to 7.3 he was 6.9he has been c/o no energyWeig ht stable, will work on losing weight and more exercise we are wondering whether he has an ongoing issue underlying given recent scrotal discomfort Essential hypertension 44111289 I10 currently stable overall checking bp overall is ok at home denies major sx no cp no sob Gout 02209599 M10.9 discusses gout etiology and diet and allopurino l we will chke lab next visitand hope cont allopurino l for now Claustrophobia 36469997 F40.240 Pelvic and perineal pain 478711969 R10.2 [id number] Jordan Trevino [facility] [address] [facility], [place] [address] 03/19/2024 13:18:33 03/19/2024 13:58:53 Depression screening 693417899 Z13.31 PHQ2 normal today Essential hypertension 31294849 I10 currently stable overall checking bp overall is ok at home denies major sx no cp no sob Type 2 chris betes mellitus 55778135 E11.9 A1C is 7.3 was7.2 was7.1 and prior to 6.9 to 7.3 he was 6.9he has been c/o no energyWeig ht stable, will work on losing weight and more exercise we are wondering whether he has an ongoing issue underlying given recent scrotal discomfort [id number] [facility] [address] [facility],[place] [address] 06/11/2024 13:44:05 06/11/2024 14:22:39 Depression screening 485191410 Z13.31 PHQ2 normal today Essential hypertension 29346706 I10 currently stable overall checking bp overall is ok at home denies major sx no cp no sob Type 2 chris betes mellitus 92899032 E11.9 A1C is 7.5 was7.2 was7.1 and prior to 6.9 to 7.3 he was 6.9he has been c/o no energyWeig ht stable, will work on losing weight and more exercise we are wondering whether he has an ongoing issue underlying given recent scrotal discomfort Gout 43095746 M10.9 discusses gout etiology and diet and allopurino l we will chke lab next visitand hope cont allopurino l for now Vitamin D deficiency 347 52755 E55.9 stable check level next 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 cont b12 [id number] [facility] [address] [facility],[place] [address] 09/23/2024 14:10:00 09/23/2024 14:53:06 Depression screening 167203004 Z13.31 PHQ2 normal today Essential hypertension 62013906 I10 currently stable overall checking bp overall is ok at home denies major sx no cp no sob Type 2 chris betes mellitus 04374303 E11.9 A1C is 7.5 was7.2 was7.1 and prior to 6.9 to 7.3 he was 6.9he has been c/o no energyWeig ht stable, will work on losing weight and more exercise we are wondering whether he has an ongoing issue underlying given recent scrotal discomfort Pain in scrotum 42047641 N50.82 [id number] will need a spec referral consider [place] Lesion of right eyelid [id number] 1793418 H02.9 [id number] DO [facility] [address],[place] [address] 12/24/2024 11:47:50 12/24/2024 15:53:54 Screening for cardiovascular system disease 222384860 Z13.6 here and doing well Screening for malignant neoplasm of colon 173731372 Z12.11 per gi appt Depression screening 171 575727 Z13.31 PHQ2 normal today Essential hypertension 25900545 I10 currently stable overall checking bp overall is ok at home denies major sx no cp no sob Type 2 chris betes mellitus 34900498 E11.9 A1C is 7.5 was7.2 was7.1 and prior to 6.9 to 7.3 he was 6.9he has been c/o no energyWeig ht stable, will work on losing weight and more exercise we are wondering whether he has an ongoing issue underlying given recent scrotal discomfort Onychomyco sis of toenails 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 Preventive procedure 169 448194 Z00.00 60876812 here for recheck and is doing ok his exam is difficult due to his obesity Fatigue 60912115 R53.82 778037 Health Concerns Section Related Observation LastModified by Organization Detai ls LastModified Time None Recorded Concern Status LastModified by Organization Details LastModified Time None Recorded Advance Directives Directive None Recorded Payers Insurance Date Sequence Insurance Name Policy Number Policy Osorio Covered Member ID Osorio Member ID Guarantor Name 12/22/2024 2 [place] [id number] Yovany Mccarthy [id number] Yovany Mccarthy 12/21/2024 1 [place] Yovany Mccarthy [id number] Yovany Mccarthy Notes Date Note Type Note Provider Name and Address Organization Details Recorded Time 4 text/htm l Care Management - DiabetesReported by PatientHPIFor self care, patient reportsseeing eye doctor yearly for dilated eye exam,checking feet regularly,normal range of home blood sugars (in the low 100s), andno side effects from medications. For associated symptoms, patient reportssymptoms are usually well controlled,no fatigue,no dizziness,no excessive sweating,no headaches,no confusion,no increased thirst,no increased appetite,no increased urination,no blurred vision,no numbness of feet, andno calluses on feet. Care Management - HypertensionReported by [facility] self care, patient reportsnot under emotional stress. For severity, patient reportssymptoms are improvinganddoes not interfere with daily activities. For associated symptoms, patient reportsno dizziness,no lightheadedness,no chest pain,no shortness of breath,no palpitations,no edema,no calf muscle cramps,no blurred vision,no confusion,no headaches, andno fatigue.ROS as noted in the HPI here for rechkrelates had covid for 5 days a few weeks ago still fatigued Jordan Trevino, [address], [address], [facility] 12/26/2023 15:04:48 4 text/htm l Care Management - HypertensionReported by [facility] care, patient reportsnot under emotional stress. For severity, patient reportssymptoms are improvinganddoes not interfere with daily activities. For associated symptoms, patient reportsno dizziness,no lightheadedness,no chest pain,no shortness of breath,no palpitations,no edema,no calf muscle cramps,no blurred vision,no confusion,no headaches, andno fatigue. Care Management - DiabetesReported by [facility]State [facility] self care, patient reportsseeing eye doctor yearly for dilated eye exam,checking feet regularly,normal range of home blood sugars (in the low 100s), andno side effects from medications. For associated symptoms, patient reportssymptoms are usually well controlled,no fatigue,no dizziness,no excessive sweating,no headaches,no confusion,no increased thirst,no increased appetite,no increased urination,no blurred vision,no numbness of feet, andno calluses on feet.ROS as noted in the HPI here for rechk and relates that he is still doing well Jordan Trevino [address] [place], [address], [facility] 03/19/2024 13:57:11 5 text/htm l Care Management - DiabetesReported by PatientIFor self care, patient reportsseeing eye doctor yearly for dilated eye exam,checking feet regularly,normal range of home blood sugars (in the low 100s), andno side effects from medications. For associated symptoms, patient reportssymptoms are usually well controlled,no fatigue,no dizziness,no excessive sweating,no headaches,no confusion,no increased thirst,no increased appetite,no increased urination,no blurred vision,no numbness of feet, andno calluses on feet.ROS as noted in the HPI here for rechk and is doing ok [id number] is 7.5 and stable not exercising muchdid have a bout with gout a while ago Jordan Trevino, DO [address] [place], [address], [facility] 06/11/2024 14:09:06 5 text/htm l Care Management - DiabetesReported by [facility]State [facility] self care, patient reportsseeing eye doctor yearly for dilated eye exam,checking feet regularly,normal range of home blood sugars (in the low 100s), andno side effects from medications. For associated symptoms, patient reportssymptoms are usually well controlled,no fatigue,no dizziness,no excessive sweating,no headaches,no confusion,no increased thirst,no increased appetite,no increased urination,no blurred vision,no numbness of feet, andno calluses on feet. Care Management - HypertensionReported by PatientJ[facility] self care, patient reportsnot under emotional stress. For severity, patient reportssymptoms are improvinganddoes not interfere with daily activities. For associated symptoms, patient reportsno dizziness,no lightheadedness,no chest pain,no shortness of breath,no palpitations,no edema,no calf muscle cramps,no blurred vision,no confusion,no headaches, andno fatigue.ROS as noted in the HPI here for rechk and is doing ok [id number] is 7.4 was 7.5 and stable not exercising muchdid have a bout with gout a while ago still having pain in the left scrotum regionalso having a growth on his right eyelid Jordan Madrigal Chacortaisauro, DO [address] [facility], [place], [address], [facility] 09/23/2024 16:44:42 5 text/htm l Care Management - DiabetesReported [...] home.ROS as noted in the HPI Jordan Trevino DO [address] [facility], [place], [address], [facility] 12/24/2024 13:31:28
--- OUTSIDE RECORDS SUMMARY | 2024-12-31 18:39 | XMS_ITS | Encounter Summary ---
Author Organization [facility] Address [address] [place] [address] Phone Care Team Providers Care Threshing Machine Operator Name Role Phone Jordan Trevino DO Primary Care Provider [phone] Encounter Details Date Type Department Care Team ([facility] Contact Info) Description 11/28/2019 Transcribe Orders Virtual Department [address] [place] [address] Jordan Trevino DO [address] [facility] [place] [address] [place] [address] [email or web address] Cervicalgia (Primary Dx) Social History Tobacco Use [...] [facility] Admitting [facility] Virtual Department [address] [place] [address] 03/30/2025 10:15 AM EST Hospital Encounter [facility] Virtual Department [address] [place] [address] Isiah Randhawa MD [address] [place] [address] 03/30/2025 10:15 AM EST - 03/30/2025 10:30 AM EST Surgery [facility] Admitting [facility] Virtual Department [address] [place] [address] Isiah Randhawa MD [address] [place] [address] [email or web address] COLONOSCOPY Scheduled Procedures Name [...] documented as of this encounter Care Teams Threshing Machine Operator Relationship Specialty Start Date End Date Jordan Trevino DO [email or web address] PCP - General Internal Medicine 02/05/17 documented as of this encounter Additional Source Comments The information contained in this document represents components of the legal health record. It is not the complete legal health record.[facility]
--- OUTSIDE RECORDS SUMMARY | 2024-12-31 18:39 | XMS_ITS | Encounter Summary ---
Author Organization [facility] Address [address] [place] [address] Phone Care Team Providers Care Portrait Painter Name Role Phone Jordan Trevino DO Primary Care Provider [phone] Encounter Details Date Type Department Care Team (Late Contact Info) Description 02/05/2017 Ancillary Orders Virtual Department [address] [place] [address] Mack Cardoso MD [address] [place] [address], [address] [address] [email or web address] Kidney stone Social History Tobacco [...] [facility] Virtual Department [address] [place] [address] 03/30/2025 10:15 AM EST Hospital Encounter [facility] Virtual Department [address] [place] [address] Isiah Randhawa MD [address] [place] [address] 03/30/2025 10:15 AM EST - 03/30/2025 10:30 AM EST Surgery [facility] Admitting [facility] Virtual Department 30 [place] [address] Isiah Randhawa MD [address] [place] [address] [email or web address] COLONOSCOPY Scheduled Procedures Name Priority [...] documented as of this encounter Care Teams Portrait Painter Relationship Specialty Start Date End Date Jordan Trevino DO [email or web address] PCP - General Internal Medicine 02/05/17 documented as of this encounter Additional Source Comments The information contained in this document represents components of the legal health record. It is not the complete legal health record.[facility]
--- OUTSIDE RECORDS SUMMARY | 2024-12-31 18:39 | XMS_ITS | Encounter Summary ---
Author Organization [facility] Address [address] [place] [address] Phone Care Team Providers Care Forest Officer Name Role Phone Jordan Trevino Primary Care Provider [phone] Reason for Referral * Physical Therapy (Routine) - Closed Specialty Diagnoses / Procedures Referred By Deshawn t Referred To Contact Physical Therapy Diagnoses Encounter for rehabilitation Phil Pollard PA [address] [address] Phone: tel: fax: [facility] [address] [place] [address] Phone: tel: Referral ID Status Reason Start Date Expiration Date Visits Re quested Visits Authorized [id number] Closed 01/25/2023 01/25/2024 99 99 Encounter Details Date Type Department Care Team (Latest Contact Info) Description 01/25/2023 Transcribe Orders [facility] [address] [place] [address] Phil Pollard PA [address] [address] Encounter for rehabilitation (Primary Dx) [...] Pass [facility] Admitting [facility] Virtual Department [address] [place] [address] 03/30/2025 10:15 AM EST Hospital Encounter [facility] Virtual Department [address] [place] [address] Isiah Randhawa MD [address] [place] [address] 03/30/2025 10:15 AM EST - 03/30/2025 10:30 AM EST Surgery [facility] Admitting [facility] Virtual Department [address] [place] [address] Isiah Randhawa MD [address] [place] [address] COLONOSCOPY Scheduled Procedures Name Priority Associated Diagnoses Date/Ti me COLONOSCOPY History of colonic polyps 03/30/2025 10:15 AM EST Scheduled Referrals Name Type Priority Associated Diagnoses Orde r Schedule Ambulatory referral to [facility] Physical Therapy Outpatient Referral Routine Encounter for rehabilitation Ordered: 01/25/2023 documented as of this encounter Visit Diagnoses Diagnosis Encounter for rehabilitation- Primary History of colonic polyps Personal history of colonic polyps documented in this encounter Care Teams Forest Officer Relationship Specialty Start Date End Date Jordan Trevino DO [email or web address] PCP - General Internal Medicine 02/05/17 documented as of this encounter Additional Source Comments The information contained in this document represents components of the legal health record. It is not the complete legal health record.[facility]
--- OUTSIDE RECORDS SUMMARY | 2024-12-31 18:39 | XMS_ITS | Encounter Summary ---
Author Organization [facility] Address [address] [place] [address] Phone Care Team Providers Care Patient Access Name Role Phone Jordan Trevino Primary Care Provider [phone] Encounter Details Date Type Department Care Team (Late Contact Info) Description 03/22/2018 Procedure Pass [facility] Admitting [facility] Virtual Department [address] [place] [address] Social History Tobacco Use Types Packs/Day Years [...] Pass [facility] Admitting Dept Virtual Department [address] [place] [address] 03/30/2025 10:15 AM EST Hospital Encounter [facility] Ad[facility] Virtual Department [address] [place] [address] Isiah Randhawa MD [address] [place] [address] 03/30/2025 10:15 AM EST - 03/30/2025 10:30 AM EST Surgery [facility] Admitting [facility] Virtual Department [address] [place] [address] Isiah Randhawa MD [address] [place] [address] [email or web address] COLONOSCOPY Scheduled Procedures Name Priority Associated Diagnoses Date/Ti me COLONOSCOPY History of colonic polyps 03/30/2025 10:15 AM EST documented as of this encounter Visit Diagnoses Not on filedocumented in this encounter Additional Health Concerns Infection Onset Date Last Indicated Resolved Time CoV-Risk 09/17/2021 09/17/2021 09/28/2021 1:22 AM EDT documented as of this encounter Care Teams Patient Access Relationship Specialty Start Date End Date Jordan Trevino DO [email or web address] PCP - General Internal Medicine 02/05/17 documented as of this encounter Additional Source Comments The information contained in this document represents components of the legal health record. It is not the complete legal health record.[facility]
--- OUTSIDE RECORDS SUMMARY | 2024-12-31 18:39 | XMS_ITS | Encounter Summary ---
Author Organization [facility] Address [address] [place] [address] Phone Care Team Providers Care Tableau Architect Name Role Phone Jordan Trevino DO Primary Care Provider [phone] Encounter Details Date Type Department Care Team ([facility] st Contact Info) Description 12/18/2023 Transcribe Orders [facility] [address] [place] [address] Jordan Trevino DO [address] [place] [address] [email or web address] Type 2 diabetes mellitus without complication, unspecified whether senior living insulin use (Primary Dx) Social History Tobacco [...] Pass [facility] End[facility] Admitting Dept Virtual Department [address] [place] [address] 03/30/2025 10:15 AM EST Hospital Encounter [facility] Admitting Dept Virtual Department [address] [place] [address] Isiah Randhawa MD [address] [address] 03/30/2025 10:15 AM EST - 03/30/2025 10:30 AM EST Surgery [facility] Endoscopy Admitting Dept Virtual Department [address] [place] [address] Isiah Randhawa MD [address] [address] [email or web address] COLONOSCOPY Scheduled Orders Name Type Priority Associated Diagnoses Orde r Schedule Hemoglobin A1c Lab Routine Type 2 diabetes mellitus without complication, unspecified whether senior living insulin use Monthly for 5 Occurrences starting 12/18/2023 until 12/17/2024, 3 completed Comprehensive metabolic panel Lab Routine Type 2 diabetes mellitus without complication, unspecified whether senior living insulin use Every 6 months for 2 Occurrences starting 12/18/2023 until 12/17/2024, 1 completed Lipid panel Lab Routine Type 2 diabetes mellitus without complication, unspecified whether senior living insulin use Every 6 months for 2 Occurrences starting 12/18/2023 until 12/17/2024, 1 completed Scheduled Procedures Name Priority Associated Diagnoses Date/Ti me COLONOSCOPY History of colonic polyps 03/30/2025 10:15 AM EST documented as of this encounter Results * (ABNORMAL) Lipid panel (06/09/2024 9:07 AM EDT) HDL 67 mg/dL [facility] Comment: Interpretation <40 mg/dL: Low HDL cholesterol (major risk factor for CHD) Greater than or equal to 60 mg/dL: High HDL cholesterol ( negative risk factor for CHD) HDL - cholesterol is affected by a number of factors, e.g. smoking, excerise, hormones, sex and age. CHOLESTEROL 142 0 - 240 mg/dL [facility] TRIGLYCERIDES 106 30 - 160 mg/dL [facility] LDL 54 50 - 129 mg/dL [facility] Comment: LDL levels in terms of risk for coronary heart disease: <100 mg/dL: Optimal 100-129 mg/dL: Near or above optimal 130-159 mg/dL: Borderline high 160-189 mg/dL: High >190 mg/dL: Very High CARDIAC RISK RATIO 2.1(L) 3.4 - 5.0 [facility] Blood 06/09/2024 9:07 AM EDT 06/09/2024 9:09 AM EDT us Jordan A Bigda DO LAB BLOOD ORDERABLES Final Resul t [address] [address] * (ABNORMAL) Comprehensive metabolic panel (06/09/2024 9:07 AM EDT) Pathologist [facility] SODIUM 138 133 - 146 mmol/L [facility] POTASSIUM 4.7 3.3 - 5.1 mmol/L [facility] CHLORIDE 102 96 - 108 mmol/L [facility] CO2 26 21 - 35 mmol/L [facility] BUN 18 6 - 19 mg/dL [facility] CREATININE 1.10 0.5 - 1.5 mg/dL [facility] GLUCOSE 165(H) 70 - 99 mg/dL [facility] ALBUMIN 4.0 3.9 - 4.8 g/dL [facility] TOTAL PROTEIN 7.7 6.5 - 8.0 g/dL [facility] CALCIUM 9.1 8.4 - 10.3 mg/dL [facility] ALKALINE PHOSPHATASE 99 39 - 117 U/L [facility] TOTAL BILIRUBIN 0.3 0.0 - 1.2 mg/dL [facility] AST 21 0 - 37 U/L [facility] ALT 13 0 - 40 U/L [facility] GLOBULIN 3.7 1 - 4.8 g/dL [facility] EGFR 69 >59 mL/min/1.7 3m2 [facility] Comment:Estimated glomerular filtration rate calculated using the CKD-EPI refit equation. ANION GAP 15 10 - 20 mmol/L [facility] Blood 06/09/2024 9:07 AM EDT 06/09/2024 9:09 AM EDT us Jordan A Bigda DO LAB BLOOD ORDERABLES Final Resul t Performing Organization Address [facility] de Phone Number [address] [address] * (ABNORMAL) Hemoglobin A1c (06/09/2024 9:07 AM EDT) HEMOGLOBIN A1C 7.5(H) 4.3 - 5.8 % [facility] Blood 06/09/2024 9:07 AM EDT 06/09/2024 9:09 AM EDT us Jordan A Bigda DO LAB BLOOD ORDERABLES Final Resul t Performing Organization Address [facility] Co de Phone Number [address] [address] * (ABNORMAL) Hemoglobin A1c (03/18/2024 9:39 AM EST) HEMOGLOBIN A1C 7.3(H) 4.3 - 5.8 % [facility] Blood 03/18/2024 9:39 AM EST 03/18/2024 9:41 AM EST us Jordan A Bigda DO LAB BLOOD ORDERABLES Final Resul t Performing Organization Address [facility] de Phone Number [address] [address] * (ABNORMAL) Hemoglobin A1c (12/18/2023 11:02 AM EDT) HEMOGLOBIN A1C 7.2(H) 4.3 - 5.8 % [facility] Blood 12/18/2023 11:0 2 AM EDT 12/18/2023 11:06 AM EDT us Jordan Trevino DO LAB BLOOD ORDERABLES Final Resul t Performing Organization Address City/[facility]/ZIP Co de Phone Number [address] [address] documented in this encounter Visit Diagnoses Diagnosis Type 2 diabetes mellitus without complication, unspecified whether director long term care insulin use- Primary History of colonic polyps Personal history of colonic polyps documented in this encounter Care Teams Tableau Architect Relationship Specialty Start Date End Date Jordan Trevino DO [email or web address] PCP - General Internal Medicine 02/05/17 documented as of this encounter Additional Source Comments The information contained in this document represents components of the legal health record. It is not the complete legal health record.[facility]
--- OUTSIDE RECORDS SUMMARY | 2024-12-31 18:39 | XMS_ITS | Encounter Summary ---
Author Organization [facility] Address [address] [place] [address] Phone Care Team Providers Care Automation Engineering Technician Name Role Phone Jordan Trevino DO Primary Care Provider [phone] Encounter Details Date Type Department Care Team ([facility] st Contact Info) Description 03/18/2024 Transcribe Orders [address] [address] Jordan Trevino DO [address] [facility] [place] [address] Social History Tobacco Use Types Packs/Day Years [...] Pass [facility] Endoscopy Admitting Dept Virtual Department [address] [place] [address] 03/30/2025 10:15 AM EST Hospital Encounter [facility] Endoscopy Admitting Dept Virtual Department [address] [place] [address] Isiah Randhawa MD [address] [place] [address] 03/30/2025 10:15 AM EST - 03/30/2025 10:30 AM EST Surgery [facility] Endoscopy Admitting Dept Virtual Department [address] [place] [address] Isiah Randhawa MD [address] [address] [email or web address] COLONOSCOPY Scheduled Procedures Name Priority Associated Diagnoses Date/Ti sc COLONOSCOPY History of colonic polyps 03/30/2025 10:15 AM EST documented as of this encounter Visit Diagnoses Not on filedocumented in this encounter Care Teams Automation Engineering Technician Relationship Specialty Start Date End Date Jordan Trevino DO PCP - General Internal Medicine 02/05/17 documented as of this encounter Additional Source Comments The information contained in this document represents components of the legal health record. It is not the complete legal health record.[facility]
--- OUTSIDE RECORDS SUMMARY | 2024-12-31 18:39 | XMS_ITS | Encounter Summary ---
Author Organization [facility] Address [address] [place] [address] [place] [address] Phone Care Team Providers Care Stock Order Lister Name Role Phone Jordan Trevino Primary Care Provider [phone] Encounter Details Date Type Department Care Team (Late Contact Info) Description 09/16/2021 Procedure Pass [facility], Ct Scan - [address] [address] Social History Tobacco Use Types Packs/Day Years [...] 7:43 PM EDT Jayesh Mott RN * [place] Suicide Severity Rating Scale (Screener/Recent Self-Report) Question [...] Pass [facility] Endoscopy Admitting Dept Virtual Department [address] [place] [address] 03/30/2025 10:15 AM EST Hospital Encounter [facility] Endoscopy Admitting Dept Virtual Department [address] [place] [address] Isiah Randhawa MD [address] [address] [email or web address] 03/30/2025 10:15 AM EST - 03/30/2025 10:30 AM EST Surgery [facility] Endoscopy Admitting Dept Virtual Department [address] [place] [address] Isiah Randhawa MD [address] [address] [email or web address] COLONOSCOPY Scheduled Procedures Name Priority Associated Diagnoses Date/Ti me COLONOSCOPY History of colonic polyps 03/30/2025 10:15 AM EST documented as of this encounter Visit Diagnoses Not on filedocumented in this encounter Additional Health Concerns Infection Onset Date Last Indicated Resolved Time CoV-Risk 09/17/2021 09/17/2021 09/28/2021 1:22 AM EDT documented as of this encounter Care Teams Stock Order Lister Relationship Specialty Start Date End Date Jordan Trevino DO [email or web address] PCP - General Internal Medicine 02/05/17 documented as of this encounter Additional Source Comments The information contained in this document represents components of the legal health record. It is not the complete legal health record.[facility]
--- OUTSIDE RECORDS SUMMARY | 2024-12-31 18:39 | XMS_ITS | Clinical Summary ---
Author Organization [facility] Address [address] [place] [address] Phone Care Team Providers Care Staffing Consultant Name Role Phone Jordan Trevino Primary Care [...] [facility]H Endoscopy Admitting Dept Virtual Department [address] [place] [address] 03/30/2025 10:15 AM EST Hospital Encounter [facility] Endoscopy Admitting Dept Virtual Department [address] [place] [address] Isiah Randhawa MD [address] [place] [address] 03/30/2025 10:15 AM EST - 03/30/2025 10:30 AM EST Surgery [facility] Endoscopy Admitting Dept Virtual Department [address] [place] [address] Isiah Randhawa MD [address] [place] [address] COLONOSCOPY Scheduled Procedures Name Priority Associated Diagnoses [...] 2 diabetes mellitus without complication, unspecified whether detention insulin use LIPID PANEL Routine 06/09/2024 9:07 AM EDT Type 2 diabetes mellitus without complication, unspecified whether detention insulin use COMPREHENSIVE METABOLIC PANEL Routine 06/09/2024 9:07 AM EDT Type 2 diabetes mellitus without complication, unspecified whether detention insulin use from Last 3 Months or Most Recently Relevant to Health Maintenance Results * (ABNORMAL) Comprehensive metabolic panel (06/09/2024 9:07 AM EDT) SODIUM 138 133 - 146 mmol/L [facility] POTASSIUM 4.7 3.3 - 5.1 mmol/L [facility] CHLORIDE 102 96 - 108 mmol/L [facility] CO2 26 21 - 35 mmol/L [facility] BUN 18 6 - 19 mg/dL [facility] CREATININE 1.10 0.5 - 1.5 mg/dL [facility] GLUCOSE 165(H) 70 - 99 mg/dL [facility] ALBUMIN 4.0 3.9 - 4.8 g/dL [facility] TOTAL PROTEIN 7.7 6.5 - 8.0 g/dL [facility] CALCIUM 9.1 8.4 - 10.3 mg/dL [facility] ALKALINE PHOSPHATASE 99 39 - 117 U/L [facility] TOTAL BILIRUBIN 0.3 0.0 - 1.2 mg/dL [facility] AST 21 0 - 37 U/L [facility] ALT 13 0 - 40 U/L [facility] GLOBULIN 3.7 1 - 4.8 g/dL [facility] EGFR 69 >59 mL/min/1.7 3m2 [facility] Comment:Estimated glomerular filtration rate calculated using the CKD-EPI refit equation. ANION GAP 15 10 - 20 mmol/L [facility] Blood 06/09/2024 9:07 AM EDT 06/09/2024 9:09 AM EDT us Jordan A Bigda DO LAB BLOOD ORDERABLES Final Resul t Performing Organization Address [facility] Co de Phone Number [address] [address] * (ABNORMAL) Hemoglobin A1c (06/09/2024 9:07 AM EDT) HEMOGLOBIN A1C 7.5(H) 4.3 - 5.8 % [facility] Blood 06/09/2024 9:07 AM EDT 06/09/2024 9:09 AM EDT us Jrodan A Bigda DO LAB BLOOD ORDERABLES Final Resul t Performing Organization Address [facility] Co de Phone Number [address] [address] * (ABNORMAL) Lipid panel (06/09/2024 9:07 AM EDT) HDL 67 mg/dL [facility] Comment: Interpretation <40 mg/dL: Low HDL cholesterol (major risk factor for CHD) Greater than or equal to 60 mg/dL: High HDL cholesterol ( negative risk factor for CHD) HDL - cholesterol is affected by a number of factors, e.g. smoking, excerise, hormones, sex and age. CHOLESTEROL 142 0 - 240 mg/dL [facility] TRIGLYCERIDES 106 30 - 160 mg/dL [facility] LDL 54 50 - 129 mg/dL [facility] Comment: LDL levels in terms of risk for coronary heart disease: <100 mg/dL: Optimal 100-129 mg/dL: Near or above optimal 130-159 mg/dL: Borderline high 160-189 mg/dL: High >190 mg/dL: Very High CARDIAC RISK RATIO 2.1(L) 3.4 - 5.0 [facility] Blood 06/09/2024 9:07 AM EDT 06/09/2024 9:09 AM EDT us Jordan A Bigda DO LAB BLOOD ORDERABLES Final Resul t Performing Organization Address [facility] Co de Phone Number [address] [address] from Last 3 Months or Most Recently Relevant to Health Maintenance Insurance MEDICARE PART A & B [employer] MEDEX SUPPLEMENT MEDICARE PART A & B [employer] MEDEX SUPPLEMENT MEDICARE PART A & B [facility] MEDEX SUPPLEMENT MEDICARE PART A & B [employer] MEDEX SUPPLEMENT MEDICARE PART A & B Member [facility]scriber [facility] Name:Yovany Mccarthy Member ID:[id number] Relation to Subscriber:Self Name:SathyaMarvin hubern Subscriber ID:[id number] Payer ID:[id number] Group ID:Not on file Type:Medicare Address: [employer] [address] [place] [address] [employer] MEDEX SUPPLEMENT Member Subscriber Plan / [facility] Name:Yovany Mccarthy Relation to Subscriber:Self Name:SathyaMarvin hubern Payer ID:[id number] (NAIC) Type:Indemnity Address: [place] [address] MEDICARE PART A & B [employer] MEDEX SUPPLEMENT MEDICARE PART A & B [employer] MEDEX SUPPLEMENT MEDICARE PART A & B [employer] MEDEX SUPPLEMENT MEDICARE PART A & B [employer] MEDEX SUPPLEMENT Care Teams Staffing Consultant Relationship Specialty Start Date End Date Jordan Trevino DO [email or web address] PCP - General Internal Medicine 02/05/17 Additional Source Comments The information contained in this document represents components of the legal health record. It is not the complete legal health record.[facility]
--- OUTSIDE RECORDS SUMMARY | 2024-12-31 18:39 | XMS_ITS | Encounter Summary ---
Author Organization [facility] Address [address] [place] [address] Phone Care Team Providers Care Teacher Private Name Role Phone Jordan Trevino DO Primary Care Provider [phone] Encounter Details Date Type Department Care Team ([facility] st Contact Info) Description 10/01/2023 Transcribe Orders Virtual Department [address] [place] [address] Jordan Trevino DO [address] [facility] [place] [address] [email or web address] Pelvic and perineal pain (Primary Dx) Social [...] [facility] Endoscopy Admitting Dept Virtual Department [address] [place] [address] 03/30/2025 10:15 AM EST Hospital Encounter [facility] Endoscopy Admitting Dept Virtual Department [address] [place] [address] Isiah Randhawa MD [address] [address] [email or web address] 03/30/2025 10:15 AM EST - 03/30/2025 10:30 AM EST Surgery [facility] Endoscopy Admitting Dept Virtual Department [address] [place] [address] Isiah Randhawa MD [address] [address] [email or web address] COLONOSCOPY Scheduled Procedures Name Priority Associated Diagnoses Date/Ti nj COLONOSCOPY History of colonic polyps 03/30/2025 10:15 AM EST documented as of this encounter Visit Diagnoses Diagnosis Pelvic and perineal pain- Primary History of colonic polyps Personal history of colonic polyps documented in this encounter Care Teams Teacher Private Relationship Specialty Start Date End Date Jordan Trevino DO [email or web address] PCP - General Internal Medicine 02/05/17 documented as of this encounter Additional Source Comments The information contained in this document represents components of the legal health record. It is not the complete legal health record.[facility]
--- OUTSIDE RECORDS SUMMARY | 2024-12-31 18:39 | XMS_ITS | Encounter Summary ---
Author Organization [facility] Address [id number] [place] [address] Phone Care Team Providers Care Chucking And Sawing Machine Operator Name Role Phone Jordan Trevino DO Primary Care Provider Encounter Details Date Type Department Care Team ([facility] st Contact Info) Description 08/21/2022 Transcribe Orders Virtual Department [address] [place] [address] Jordan Trevino DO 179 [facility] [place] [address] [email or web address] Scrotal pain (Primary Dx) Social History Tobacco [...] [facility] Endoscopy Admitting Dept Virtual Department [address] [place] [address] 03/30/2025 10:15 AM EST Hospital Encounter [facility] Endoscopy Admitting Dept Virtual Department [address] [place] [address] Isiah Randhawa MD [address] [place] [address] 03/30/2025 10:15 AM EST - 03/30/2025 10:30 AM EST Surgery [facility] Endoscopy Admitting Dept Virtual Department [address] [place] [address] Isiah Randhawa MD [address] [place] [address] COLONOSCOPY Scheduled Procedures Name Priority Associated Diagnoses Date/Ti ri COLONOSCOPY History of colonic polyps 03/30/2025 10:15 [...] polyps documented in this encounter Care Teams Chucking And Sawing Machine Operator Relationship Specialty Start Date End Date Jordan Trevino DO [email or web address] PCP - General Internal Medicine 02/05/17 documented as of this encounter Additional Source Comments The information contained in this document represents components of the legal health record. It is not the complete legal health record.[facility]
[2024-12-31 19:55] LABS: Ferritin 274 ng/mL (20-250); Iron 92 mcg/dL (45-160); Percent Iron Saturation 34 % (15-50); Total Iron Binding Capacity 267 mcg/dL (228-428); Unsaturated Iron Binding 175 ug/dL
== END 2024-12-31 18:37 | disposition home or self-care (01) ==
LOC: HO.LNP 18:36
PROVIDERS: Visit Provider Internal Medicine
DX: D64.9 Anemia, unspecified (principal)
CPT/HCPCS: 82728; 83540

== ENCOUNTER 2025-03-09 11:28 | Outpatient (REF) | payer MEDICARE, SELFPAY | END 2025-03-09 11:29 | disposition home or self-care (01) | LOC: HO.MANLDS 11:28 | PROVIDERS: Visit Provider Internal Medicine | DX: E11.9 Type 2 diabetes mellitus without complications (principal) | CPT/HCPCS: 36415; 83036 ==

== ENCOUNTER 2025-03-13 13:41 | Outpatient (REF) | payer MEDICARE, SELFPAY ==
--- NOTE | ~2025-03-13 | US_ITS ---
EXAMINATION: US SCROTUM HISTORY: N50.819 - Testicular pain, unspecified. COMPARISON: There are no prior studies available for comparison. FINDINGS: Real-time grayscale ultrasound imaging of the scrotum was performed. Color Doppler and waveform spectral analysis of the testicular arteries and veins. RIGHT TESTICLE: The right testis measures 4.3 x 2.3 x 3.4 cm and demonstrates normal homogeneous echotexture. No masses are seen. The right testis demonstrates normal color Doppler flow. No torsion. RIGHT EPIDIDYMIS: 5 x 3 x 7 mm epididymal head cyst. Remainder of the epididymis is unremarkable. LEFT TESTICLE: The left testis measures 4 x 2.3 x 3.2 cm and demonstrates normal homogeneous echotexture. No masses are seen. The left testis demonstrates normal color Doppler flow. No torsion. LEFT EPIDIDYMIS: 5 x 4 x 5 mm epididymal head cyst. Remainder of the epididymis is unremarkable. VARICOCELE: Small bilateral varicoceles. HYDROCELE: No significant hydrocele is seen. OTHER COMMENTS: None. US/US scrotum IMPRESSION: Normal-appearing testicles. Small bilateral epididymal head cysts. Small bilateral varicoceles. Electronically signed by: Mirna Alba MD 03/13/2025 04:01 PM [facility]
--- NOTE | ~2025-03-13 | US_ITS ---
EXAMINATION: US RETROPERITONEAL COMPLETE (RENAL) CLINICAL INFORMATION: N40.0 - Benign prostatic hyperplasia without lower urinary tract symptoms. COMPARISON: None available. TECHNIQUE: Real-time imaging of the kidneys and bladder. FINDINGS: RIGHT KIDNEY: 13.3 x 5.6 x 6.3 cm (SAG x AP x TRV). The kidney is normal in size, contour, and echogenicity. Renal cortical thickness is normal. Multiple cysts, largest measuring 2.6 x 2.4 x 2.6 cm in the upper pole. Additional 1.1 x 1.2 x 1.4 cm cyst in the upper pole, 1.5 x 1.4 x 1.7 cm cyst in the midpole and 1 x 0.7 x 0.8 cm cyst in the lower pole. No calculi. No hydronephrosis. LEFT KIDNEY: 12.7 x 6.1 x 5.7 cm (SAG x AP x TRV). The kidney is normal in size, contour, and echogenicity. Renal cortical thickness is normal. Multiple cysts, largest measuring 4.4 x 3.8 x 5.1 cm in the midpole. 1.8 x 1.7 x 1.4 cm cyst in the midpole and 3 x 3.2 x 1.9 cm cyst in the lower pole. No calculi.. No hydronephrosis. BLADDER: Well distended. No stone or mass. Bilateral ureteral jets are demonstrated. Prevoid bladder volume is 349 mL. Postvoid bladder volume is 107 mL. Prostate gland protrudes slightly into the base of the bladder. Prostate gland is normal in size. Prostate gland measures 3.6 x 3.1 x 3.6 cm, volume 21 mL. US/US retroperitoneal comp IMPRESSION: Bilateral renal cysts. Large 107 mL post void bladder residual. Prostate gland protrudes slightly into the base of the bladder and is normal in size measuring 21 mL. Electronically signed by: Mirna Alba MD 03/13/2025 04:06 PM [facility]
--- OUTSIDE RECORDS SUMMARY | 2025-03-13 19:09 | XMS_ITS | Encounter Summary ---
Author Organization [facility] Address [address] [place] [address] [place] [address] Phone Care Team Providers Care Shochet Name Role Phone Jordan Trevino Primary Care Provider [phone] Encounter Details Date Type Department Care Team (Late Contact Info) Description 09/16/2021 Procedure Pass [facility], Ct Scan - [facility] [address] [place] [address] Social History Tobacco Use Types Packs/Day Years [...] 7:43 PM EDT Jayesh Mott RN * [place] Suicide Severity Rating Scale (Screener/Recent Self-Report) Question [...] Care Team (Late st Contact Info) Description 2025 9:00 AM EST Pre-Admission Testing Pre Procedure Evaluation [address] [place] [address] Isiah Randhawa MD [address] [address] 03/30/2025 Procedure Pass [facility] Admitting Dept Virtual Department [address] [place] [address] 03/30/2025 10:15 AM EST Hospital Encounter [facility] Endoscopy Admitting Dept Virtual Department [address] [place] [address] Isiah Randhawa MD [address] [address] 03/30/2025 10:15 AM EST - 03/30/2025 10:30 AM EST Surgery [facility] Endoscopy Admitting Dept Virtual Department [address] [place] [address] Isiah Randhawa MD [address] [address] [email or web address] COLONOSCOPY Scheduled Procedures Name Priority Associated Diagnoses Date/Ti me COLONOSCOPY History of colonic polyps 03/30/2025 10:15 AM EST documented as of this encounter Visit Diagnoses Not on filedocumented in this encounter Additional Health Concerns Infection Onset Date Last Indicated Resolved Time CoV-Risk 09/17/2021 09/17/2021 09/28/2021 1:22 AM EDT documented as of this encounter Care Teams Shochet Relationship Specialty Start Date End Date Jordan Trevino DO PCP - General Internal Medicine 02/05/17 documented as of this encounter Additional Source Comments The information contained in this document represents components of the legal health record. It is not the complete legal health record.[facility]
--- OUTSIDE RECORDS SUMMARY | 2025-03-13 19:09 | XMS_ITS | Clinical Summary ---
Author Organization [facility] Address [address] [place] [id number] Phone Care Team Providers Care Stave Cutting Supervisor Name Role Phone Pop Rios Primary Care Provider [phone] Allergies No known active allergies Medications ONETOUCH [...] EST Pre-Admission Testing Pre Procedure Evaluation [address] [place] [address] Maximus Morrell MD [address] [place] [address] 03/30/2025 Procedure Pass [facility] End[facility] Admitting Dept Virtual Department [address] [place] [address] 03/30/2025 10:15 AM EST Hospital Encounter [facility] Admitting Dept Virtual Department [address] [place] [address] Maximus Morrell MD [address] [place] [address] 03/30/2025 10:15 AM EST - 03/30/2025 10:30 AM EST Surgery [facility] Endoscopy Admitting Dept Virtual Department [address] [place] [address] Maximus Morrell MD [address] [place] [address] [email or web address] COLONOSCOPY Scheduled Procedures Name Priority Associated Diagnoses Date/Ti me COLONOSCOPY History of colonic polyps 03/30/2025 10:15 AM EST Health Maintenance Due Date Last Done Comments Adult Td,Tdap Booster 1945 BLOOD PRESSURE 1945 DEPRESSION SCREENING 1959 HEPATITIS C SCREENING 1965 PNEUMOCOCCAL VACCINES (50+ years) (1 of 2 - PCV) 1966 COLOGUARD 1992 FIT TEST 1992 FOBT 1992 SIGMOIDOSCOPY 1992 VIRTUAL COLONOSCOPY 1992 ZOSTER VACCINES (1 of 2) 1997 DIABETIC EYE EXAM 09/16/2021 RSV VACCINE (1 - 1-dose 75+ series) 2022 INFLUENZA VACCINE (#1) 2024 COVID-19 VACCINE ( season) 2024 03/07/2021, 07/24/2020, 07/02/2020 HEMOGLOBIN A1C 12/10/2024 06/09/2024, 03/02, 12/18/2023, Additional history exists COLONOSCOPY 03/22/2025 03/22/2018 COLORECTAL CANCER SCREENING 03/22/2025 CREATININE LEVEL 06/09/2025 06/09/2024, , 12/22/2022, Additional [...] on patient's age to complete this topic Goals Goal Patient Goal Type Associated Problems Recent Progress Patient-Stated? Author Autogenerat ed Goal Care Plan Autogenerated Problem No Nimisha Gomez, KIRBY [employer] Not on file Procedures Procedure Name Priority Date/Time Associated Diagnosis Comments HEMOGLOBIN A1C Routine 06/09/2024 9:07 AM EDT Type 2 diabetes mellitus without complication, unspecified whether long term care phlebotomist insulin use LIPID PANEL Routine 06/09/2024 9:07 AM EDT Type 2 diabetes mellitus without complication, unspecified whether residential insulin use COMPREHENSIVE METABOLIC PANEL (CMP) Routine 06/09/2024 9:07 AM EDT Type 2 diabetes mellitus without complication, unspecified whether residential insulin use ENDOSCOPY, COLON 03/22/2018 8:42 AM EST from Last 3 Months or Most Recently Relevant to Health Maintenance Results * (ABNORMAL) Comprehensive metabolic panel (06/09/2024 9:07 AM EDT) SODIUM 138 133 - 146 mmol/L [facility] POTASSIUM 4.7 3.3 - 5.1 mmol/L [facility] CHLORIDE 102 96 - 108 mmol/L [facility] CO2 26 21 - 35 mmol/L [facility] BUN 18 6 - 19 mg/dL [facility] CREATININE 1.10 0.5 - 1.5 mg/dL [facility] GLUCOSE 165(H) 70 - 99 mg/dL [facility] ALBUMIN 4.0 3.9 - 4.8 g/dL [facility] TOTAL PROTEIN 7.7 6.5 - 8.0 g/dL [facility] CALCIUM 9.1 8.4 - 10.3 mg/dL [facility] ALKALINE PHOSPHATASE 99 39 - 117 U/L [facility] TOTAL BILIRUBIN 0.3 0.0 - 1.2 mg/dL [facility] AST 21 0 - 37 U/L [facility] ALT 13 0 - 40 U/L [facility] GLOBULIN 3.7 1 - 4.8 g/dL [facility] EGFR 69 >59 mL/min/1.7 3m2 [facility] Comment:Estimated glomerular filtration rate calculated using the CKD-EPI refit equation. ANION GAP 15 10 - 20 mmol/L [facility] Blood 06/09/2024 9:07 AM EDT 06/09/2024 9:09 AM EDT us Pop A Bigda DO LAB BLOOD BKR ORDERABLES Final R esult Performing Organization Address City/[facility]/ZIP Co de Phone Number [address] [address] * (ABNORMAL) Hemoglobin A1c (06/09/2024 9:07 AM EDT) HEMOGLOBIN A1C 7.5(H) 4.3 - 5.8 % [facility] Blood 06/09/2024 9:07 AM EDT 06/09/2024 9:09 AM EDT us Pop A Bigda DO LAB BLOOD BKR ORDERABLES Final R esult [address] [address] * (ABNORMAL) Lipid panel (06/09/2024 9:07 AM EDT) HDL 67 mg/dL [facility] Comment: Interpretation <40 mg/dL: Low HDL cholesterol (major risk factor for CHD) Greater than or equal to 60 mg/dL: High HDL cholesterol ( negative risk factor for CHD) HDL - cholesterol is affected by a number of factors, e.g. smoking, excerise, hormones, sex and age. CHOLESTEROL 142 0 - 240 mg/dL [facility] TRIGLYCERIDES 106 30 - 160 mg/dL [facility] LDL 54 50 - 129 mg/dL [facility] Comment: LDL levels in terms of risk for coronary heart disease: <100 mg/dL: Optimal 100-129 mg/dL: Near or above optimal 130-159 mg/dL: Borderline high 160-189 mg/dL: High >190 mg/dL: Very High CARDIAC RISK RATIO 2.1(L) 3.4 - 5.0 [facility] Blood 06/09/2024 9:07 AM EDT 06/09/2024 9:09 AM EDT us Pop Rios DO LAB BLOOD BKR ORDERABLES Final R esult [facility] [address] [place] [address] * ENDOSCOPY, COLON (03/22/2018 8:42 AM EST) Narrative Transcriptions Maximus Morrell MD - 03/22/2018 8:42 AM EST Patient Name: Yovany Mccarthy Attending MD:: MAXIMUS MORRELL MD Procedure Date: 03/22/2018 8:42 AM Date of : 1945 Age: 73 Admit Type: Outpatient Gender: Male Room: [place] [address] Referring MD: POP RIOS DO Exam Type: Colonoscopy Indications: High risk colon cancer surveillance: Personal historyof colonic polyps, Surveillance: Personal history of adenomatous polyps on last colonoscopy > 5 years ago,Last colonoscopy: March 2010 Medications: Monitored Anesthesia Care Procedure: Informed consent was obtained from the patient after discussion of the indications, limitations,alternatives, benefits, and risks of the procedure. Risksspecifically discussed include but are not limited to medication reactions, missed lesions, bleeding, perforation, orthe need for emergent surgery. Throughout the procedure, the patient's blood pressure, pulse, end-tidal CO2, and oxygen saturations were monitored continuously. The Olympus adult variable colonoscope [id number] #7 was introduced through the anus and advanced to the cecum, identified by the appendiceal orifice, ileocecal valveand palpation. The colonoscopy was performed without difficulty. The patient tolerated the procedure fairly well. The quality of the bowel preparation wasadequate. Complications: No immediate complications. Estimated blood loss:None. Findings: The perianal and digital rectal examinations werenormal. Pertinent negatives include normal sphincter tone. Diverticula were found in the sigmoid colon anddescending colon. The exam was otherwise without abnormality on directand retroflexion views. Impression: - Diverticulosis in the sigmoid colon. - The examination was otherwise normal on direct and retroflexion views. - No specimens collected. Recommendation: - Repeat colonoscopy in 7 years for surveillance. MAXIMUS MORRELL MD 03/22/2018 9:04:21 AM This report has been signed electronically. Number of Addenda: 0 Note Initiated On: 03/22/2018 8:42 AM Procedure Code(s): --- Professional --- G0105, Colorectal cancer screening; colonoscopy on individual at high risk --- Technical --- G0105, Colorectal cancer screening; colonoscopy on individual at high risk Diagnosis Code(s): --- Professional --- Z86.010, Personal history of colonic polyps --- Technical --- Z86.010, Personal history of colonic polyps CPT copyright 2016 [employer]. All rights reserved. The codes documented in this report are preliminary and upon administrative office manager reviewmay be revised to meet current compliance requirements. [address] [place] [address] us Pop Rios DO GI PROCEDURE ORDERABLES Final Re sult from Last 3 Months or Most Recently Relevant to Health Maintenance Additional Health Concerns Active Problems Noted Date Diagnosed Date Autogenerated Problem 03/13/2025 Insurance MEDICARE PART A & B [facility] MEDEX SUPPLEMENT MEDICARE PART A & B [employer] MED[employer] SUPPLEMENT MEDICARE PART A & B [employer] SU[employer] MEDICARE PART A & B [employer] SUPPLEMENT MEDICARE PART A & B [employer] SU[employer] MEDICARE PART A & B [employer] SU[employer] MEDICARE PART A & B [employer] SU[employer] MEDICARE PART A & B [employer] SU[employer]LE[employer] MEDICARE PART A & B [employer] SUPPLEMENT Care Teams Stave Cutting Supervisor Relationship Specialty Start Date End Date Pop Rios DO [email or web address] PCP - General Internal Medicine 02/05/17 Additional Source Comments The information contained in this document represents components of the legal health record. It is not the complete legal health record.[facility]
--- OUTSIDE RECORDS SUMMARY | 2025-03-13 19:09 | XMS_ITS | Encounter Summary ---
Author Organization [facility] Address [address] [facility] [address] [place] [address] Phone Care Team Providers Care Supervisor Bakery Sanitation Name Role Phone Jordan Trevion DO Primary Care Provider [phone] Encounter Details Date Type Department Care Team ([facility] Contact Info) Description 03/18/2024 Transcribe Orders [address] [address] Jordan Trevino DO [address] [facility] [place] [address] Social History Tobacco Use Types Packs/Day Years [...] AM EST Pre-Admission Testing Pre Procedure Evaluation [address] [place] [address] Isiah Randhawa MD [address] [place] [address] 03/30/2025 Procedure Pass [facility] Endoscopy Admitting Dept Virtual Department [address] [place] [address] 03/30/2025 10:15 AM EST Hospital Encounter [facility] Endoscopy Admitting Dept Virtual Department [address] [place] [address] Isiah Randhawa MD [address] [place] [address] 03/30/2025 10:15 AM EST - 03/30/2025 10:30 AM EST Surgery [facility] Endoscopy Admitting Dept Virtual Department [address] [place] [address] Isiah Randhawa MD [address] [place] [address] [email or web address] COLONOSCOPY Scheduled Procedures Name Priority Associated Diagnoses Date/Ti me COLONOSCOPY History of colonic polyps 03/30/2025 10:15 AM EST documented as of this encounter Visit Diagnoses Not on filedocumented in this encounter Care Teams Supervisor Bakery Sanitation Relationship Specialty Start Date End Date Jordan Trevino DO [email or web address] PCP - General Internal Medicine 02/05/17 documented as of this encounter Additional Source Comments The information contained in this document represents components of the legal health record. It is not the complete legal health record.[facility]
--- OUTSIDE RECORDS SUMMARY | 2025-03-13 19:09 | XMS_ITS | Data Portability ---
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) MDM MODERATE MUST MEET 2 OUT OF [...] COVERED Not available 03/19/2024 13:44:28 06/11/2024 06/11/2024 [address] [place] [address] (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) MDM MODERATE MUST MEET 2 OUT OF [...] COVERED Not available 06/11/2024 14:04:36 09/23/2024 09/23/2024 [address] [place] [address] (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) MDM MODERATE MUST MEET 2 OUT OF [...] hemoglobi n, gastroint estinal, stool 2024 025 [facility], [address] [place] [address], [address], 12/24/2024 12:14:27 CBC w/ auto diff 2024 025 [facility], [address] [place] [address], [address], 12/25/2024 12:14:33 CMP, serum or plasma 2024 025 [facility], [address] [place] [address], [address], 12/24/2024 12:14:27 vitamin B12, serum 2024 025 [facility], [address] [place] [address], [address], 12/25/2024 12:14:33 C-reactiv e protein, quantitat lali, serum or plasma 2024 025 [facility], [address] [place] [address], [address], 12/24/2024 12:14:27 CBC 2024 025 [facility], [address] [place] [address], [address], 12/24/2024 12:14:27 CMP, serum or plasma 2024 025 [facility], [address] [place] [address], [address], 12/25/2024 12:14:33 ESR (erythroc yte sedimenta tion rate), blood 2024 025 [facility], [address] [place] [address], [address], 12/24/2024 12:14:27 TSH, serum or plasma 2024 025 [facility], [address] [place] [address], [address], 12/24/2024 12:14:27 testoster one, total, serum 2024 025 [facility], [address] [place] [address], [address], 12/29/2024 12:21:50 vitamin D, 25-hydrox y, total, serum 2024 025 [facility], [address] [place] [address], [address], 12/24/2024 12:14:27 uric acid, serum or plasma 2024 025 [facility], [address] [place] [address], [address], 07/02/2024 12:48:46 Referral dermatolo gist referral 2024 025 sandro Nguyen MD, [address] [place], [address], 09/24/2024 08:45:08 urologist referral 2024 025 sandro Dunn MD, [address] [place] [address], [facility] [address], [address], 10/21/2024 09:21:48 Procedures None recorded. Surgeries None recorded. Imaging MRI, pelvis, w/o contrast 2023 024 [email or web address] [facility] [address], [address], 01/22/2024 08:29:20 Medication Orders terbinafi ne HCl 250 mg tablet 2024 025 [facility], [address] [facility], [place], [address], 12/24/2024 12:13:11 lorazepam 1 mg tablet 2023 024 [email or web address] [facility], [address] [facility], [place], [address], 06/11/2024 13:45:56 Patient TargetsNo targets recorded. Patient Instructions Encounter Date Encounter Id Patient Instructions Last Modified By Organization Details Last Modified Time 12/26/2023 [id number] gout: care instructions Not available 12/26/2023 15:02:29 learning about type 2 diabetes Not available 12/26/2023 15:02:29 type 2 diabetes: care instructions Not available 12/26/2023 15:02:29 06/11/2024 [id number] gout: care instructions Not available 06/11/2024 14:07:02 learning about type 2 diabetes Not available 06/11/2024 14:07:02 type 2 diabetes: care instructions Not available 06/11/2024 14:07:02 high blood pressure: care instructions Not available 06/11/2024 14:07:02 learning about high blood pressure Not available 06/11/2024 14:07:02 12/24/2024 [id number] advance care planning: care instructions Not available 12/24/2024 12:13:06 Discussed and explained advance directives such as standard forms to the . Face to face discussion lasted for a duration of ___ minutes. Not available 12/08/2024 16:35:18 Reason for Referral Urologist Referral for Pain in scrotum Referring Physician: Jordan Trevino, Internal Medicine, Encounter Date: 09/23/2024 Community Relations Director Referral for L esion of right eyelid Referring Physician: Jordan Trevino, Internal Medicine, Encounter Date: 09/23/2024 Results Created Date Observation Date Name Description Value Unit Range Abnormal Flag Note LastModifiedBy Organization Detail LastModifiedTime 06/10/1906/09/2024 HbA1c (hemo globi n A1c), blood A1C 7.5 abnormal Not Available [facility] [address] [facility], [place], [address], 06/09/2024 14:26:38 02/05/20 24 02/05/2024 MRI, pelvi s, w/o contr ast No observ ation record ed. [facility] [place] [address] [address], [place], [address], 03/19/2024 13:43:14 03/13/20 25 03/13/2025 imagi ng/di agnos tic resul t No observ ation record ed. [address] [place], [address], 03/13/2025 16:27:34 03/13/20 25 03/13/2025 imagi ng/di agnos tic resul t No observ ation record ed. [address] [place], [address], 03/13/2025 16:30:05 Result Notes None recorded. Problems Name Problem SNOMED Code Status Onset Date Resolution Date Notes Provider Name and Address Organization Details Recorded Time Type 2 diabetes mellitus 15874394 Active 2017 [facility] 5 08:37:25 Neuropath y due to diabetes mellitus 022847810 Active 2017 Shelley banda [facility] 5 08:37:25 Ankle edema 65859440 Active [address] [facility] Internal [facility] 5 08:37:25 Sprain of ankle 59476353 Active 2017 [facility]a [facility] 5 08:37:03 Essential hypertens ion 50000290 Active 2017 Shelley banda [facility] 5 08:37:25 Obesity 800899633 Active [address] [facility] 5 08:37:25 Kidney stone 74307519 Active 2019 Jordan Trevino, DO [address] [facility], [place], [address], [facility] Internal [facility] 0 09:38:07 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 Jordan Trevino, DO [address] [place], [address], [place] [facility] 1 15:35:45 Diverticu litis 483179684 Active 2021 Shelley Zamora null, [facility] 5 08:37:25 Anaplasmo sis 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 2021 [facility] 5 08:37:25 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 [facility] 5 08:37:25 Pain in scrotum Active 2022 Jordan Trevino, DO [address] [facility], [place], [address], [facility] 5 14:39:43 Acute urinary tract infection 685843751 Active 2022 Shelley Zamora [facility] 5 08:37:03 Meralgia paresthet ica of right leg 993492866034 108 Active 2022 [facility] 5 08:37:25 Dysuria 13956966 Active 2022 Shelley Zamora null, [facility] 5 08:37:25 Gout 08474731 Active 2022 [facility] 5 08:37:25 Urinary bladder pain 58535146 Active 2022 Shelley Zamora null, [facility] 5 08:37:25 Vitamin D deficienc y 00619920 Active 2022 Shelley banda, [facility] 5 08:37:25 Disorder of vitamin B12 704874850 Active 2022 [facility] 5 08:37:25 Fatigue 39214517 Active 2022 Jordan Trevino, [address], [address], [facility] 5 12:12:39 Paronychi a of toe 744966141 Active 2022 [facility]ve [facility] 5 08:37:03 Diverticu losis of colon 153416437 Active 2023 [facility] 5 08:37:25 Pain in testicle 42498329 Active 2023 [facility] 5 08:37:03 Pelvic and perineal pain 661147238 Active 2023 [facility] 5 08:37:03 Claustrop hobia 65303204 Active 2023 [facility] 5 08:37:25 Prostatit is 1015370 Active 2023 Shelleysteve Zamora [facility] 5 08:37:25 Lesion of right eyelid 851230273188 49336 Active 2024 Jordan Trevino, DO [address] [place] [address], [address], [facility] 5 14:49:18 Anemia 378263269 Active 2024 Jordan Trevino, [address], [address], [facility] 5 22:20:46 Problem Notes None recorded. Procedures Surgical History Date Name Laterality Status Provider Name and Address Organization Details Recorded Time 8 Colonoscopy completed Dottie Robertson [facility] 01/07/2019 10:43:08 0 Colonoscopy completed Annypoli Cook [facility] 03/18/2018 10:14:53 Imaging Results None recorded. Procedure [...] (BMI) Body weight Heart rate Oxygen saturation Systolic And Diastolic Provider Name and Address Organization Details Last Updated DateTime 5 186.06 cm 32.9 kg/m2 073841. 68 g 75 /min 99 % 146/80 mm[Hg] Shelley Zamora [facility] 5 13:50:51 Date Recorded Body height Body mass index (BMI) Body weight Heart rate Oxygen saturation Systolic And Diastolic Provider Name and Address Organization Details Last Updated DateTime 5 186.06 cm 32.9 kg/m2 040942. 68 g 83 /min 98 % 140/78 mm[Hg] Gena Strong [facility] 5 14:23:56 Date Recorded Body height Body mass index (BMI) Body weight Oxygen saturation Heart rate Systolic And Diastolic Provider Name and Address Organization Details Last Updated DateTime 5 186.06 cm 33.7 kg/m2 572432. 24 g 97 % 87 /min 128/76 mm[Hg] MATTI JIMENEZ [facility] 5 11:54:00 Date Recorded Body height Body mass index (BMI) Body weight Heart rate Oxygen saturation Systolic And Diastolic Provider Name and Address Organization Details Last Updated DateTime 4 186.06 cm 33 kg/m2 805386. 28 g 77 /min 98 % 144/80 mm[Hg] Gena Strong [facility] 4 14:34:21 Date Recorded Body height Body mass index (BMI) Body weight Heart rate Oxygen saturation Systolic And Diastolic Provider Name and Address Organization Details Last Updated DateTime 4 186.06 cm 32.5 kg/m2 977900. 91 g 82 /min 94 % 138/78 mm[Hg] Yovany Long [facility] 4 13:38:00 Social History Question Answer Notes LastModified by Organizat ion Details LastModified Time Tobacco Smoking Status Never Smoker Not Available [facility] 02/03/2020 03:36:23 What Was The Date Of [...] mcg/0.3 mL dose 03/07/2021 completed Not Available [facility] 3 16:38:46 COVID-19, mRNA, LNP-S, PF, 30 mcg/0.3 mL dose 07/02/2020 completed Not Available [facility] 3 16:38:46 COVID-19, mRNA, LNP-S, PF, 30 mcg/0.3 mL dose 07/24/2020 completed Not Available [facility] 3 16:38:46 Past Encounters Encounter ID Performer Location Encounter Start Date Encounter Closed Date Diagnosis/Indication Diagnosis SNOMED-CT Code Diagnosis ICD10 Code Diagnosis IMO Codes Diagnosis Note [id number] Jordan Trevino [facility] [address] [facility], [place] [address] 09/05/2017 09:52:19 09/05/2017 11:04:34 Type 2 diabetes mellitus 49826883 E11.9 doing well overall doing a good diet and is feeling well with some wgt loss Essential hypertension 29371466 I10 [id number] [facility] Internal Medicine [address] [facility], [place] [address] 12/19/2017 10:03:21 12/19/2017 11:32:01 Type 2 diabetes mellitus 29595935 E11.9 doing ok overall doing a good diet and is feeling well with some wgt loss Essential hypertension 86585762 I10 currently stable overall Adult heal th examination 979152509 Z00.00 discussed lab in detail Screening for cardiovascular system disease 130112901 Z13.6 here and doing well Screening for malignant neoplasm of colon 938219545 Z12.11 per gi appt Constipation 27659827 K5 9.00 to try metamucil as directed along with probiot [id number] [facility] Internal Medicine [address] [facility] [address],[place] [address] 03/18/2018 09:57:59 03/18/2018 10:48:06 Essential hypertension 94155523 I10 currently stable overall Type 2 chris betes mellitus 99792074 E11.9 doing ok overall but needs to get back on track with eating better will get back to walking etc rechk in 3 mo Hepatitis C screening 41 6566940 Z11.59 next lab draw [id number] [facility] Internal Medicine [address] [facility] [address] [place] [address] 06/25/2018 09:42:49 06/25/2018 10:44:20 Adult health examination 302920277 Z00.00 here for recheck and is doing ok his exam is difficult due to his obesity Active or passive immunization 684665531 Z23 Type 2 chris betes mellitus 52135895 E11.9 doing ok overall but needs to get back on track with eating better a1c is 7.1 and is elevated now will get back to walking etc MUST DO THIS rechk in 3 mo a long discussion re need to lose the wgt he gained and to get his sugars down Essential hypertension 50208953 I10 currently stable overall [id number] [facility] Internal Medicine [address] [facility] [address],[place] [address] 09/30/2018 14:02:36 09/30/2018 15:17:49 Essential hypertension 13149244 I10 currently stable overall denies major sx no cp no sob Type 2 chris betes mellitus 65173463 E11.9 doing ok overall but needs to get back on track with eating better a1c is 7.1 and is the same as in may will get back to walking etc MUST DO THIS rechk in 3 mo a long discussion re need to lose the wgt he gained and to get his sugars down [id number] [facility] Internal Medicine [address] [facility] [address],[place] [address] 01/07/2019 10:28:10 01/07/2019 11:35:43 Diverticulosis of sigmoid colon 057795689 K57.[address] of abdomen discussed with MB recommend cipro 500 mg bid x 10 days reaction to flagyl hasn't done well with augmentin in the past Diarrhea 46062308 R19.7 Type 2 chris betes mellitus 93587809 E11.65 Essential hypertension 81066057 I10 [id number] Jordan Trevino [facility] Internal Medicine [address] [facility] [address] [address] 01/17/2019 13:57:12 01/17/2019 14:54:27 Type 2 diabetes mellitus 31611821 E11.9 doing ok overall but needs to get back on track with eating better a1c is 6.9 was 7.1 and is the same as in may will get back to walking and needs to start agian rechk in 3 mo a long discussion re need to lose the wgt he gained and to get his sugars down Neuropathy due to diabetes mellitus 344480763 E11.40 about the same no major issues Essential hypertension 45098545 I10 currently stable overall denies major sx no cp no sob Traveler's diarrhea 1184 0006 A04.1 [id number] Jordan Trevino [facility] Internal Medicine [address] [facility] [address] [address] 05/07/2019 09:50:32 05/07/2019 10:46:06 Type 2 diabetes mellitus 30877081 E11.9 A1C elevated to 7.2 due to inactivity after teeth pulling Weight stable, will work on losing weight and more exercise Essential hypertension 72501516 I10 currently stable overall denies major sx no cp no sob Neuropathy due to diabetes mellitus 892921987 E11.40 stable [id number] Jordan Trevino [facility] Internal Medicine [address] [facility] [address] [address] 09/03/2019 09:05:30 09/03/2019 10:02:59 Neuropathy due to diabetes mellitus 666156213 E11.40 stable and has not progressed Essential hypertension 16784799 I10 currently stable overall denies major sx no cp no sob Type 2 chris betes mellitus 10194236 E11.9 A1C elevated to 7.5 due to inactivity Weight stable, will work on losing weight and more exercise we are wondering whether he has an ongoing issue Kidney stone 41168593 N2 0.0 quiet and is followed by urology needs psa Ankle edema 98672515 R60 .0 currently stable and no issue good pulses and no wounds Oral infection 870772125 K13.79 will chk lab to see if any residual infect Dysuria 61058250 R30.9 [id number] Jordan Trevino [facility] Internal Medicine [address] [facility],[address] [address] [place] [address] 11/28/2019 09:29:10 11/28/2019 10:25:13 Type 2 diabetes mellitus 88828395 E11.9 A1C elevated to 7.5 due to inactivity Weight stable, will work on losing weight and more exercise we are wondering whether he has an ongoing issue Essential hypertension 96738553 I10 currently stable overall denies major sx no cp no sob Neuropathy due to diabetes mellitus 116055016 E11.40 stable and has not progressed Neck pain 16311414 M54.2 hurts to turn neck to the left most pain is on the left [id number] Jordan Trevino [facility] Internal Medicine [address] [facility],[place] [address] 01/16/2020 11:33:30 01/16/2020 12:02:57 Pre-surgery evaluation 301399818 Z01.818 based on exam and history the patient is cleared for surgery [id number] Jordan Trevino [facility] [address] [facility],[address] [facility] [place] [address] 03/15/2020 08:46:20 03/15/2020 11:31:37 Essential hypertension 32246597 I10 currently stable overall checking bp overall is ok at home denies major sx no cp no sob Type 2 chris betes mellitus 91746374 E11.9 A1C is still elevated to 7.5 due to inactivity and was 7.5 last in august Weight stable, will work on losing weight and more exercise we are wondering whether he has an ongoing issue Neuropathy due to diabetes mellitus 544524194 E11.40 stable and has not progressed but had an issue on his toe right great toe has a darkened area on the nail relates he is treating area with home remedy no sx or visual evid of infection Onychomyco sis of toenails 523294065 B35.1 [id number] Jordan AmritaAllen Trevino, [facility] Internal Medicine [address] [facility] [address],[place] [address] 08/09/2020 14:55:34 08/09/2020 16:17:21 Essential hypertension 75733130 I10 currently stable overall checking bp overall is ok at home denies major sx no cp no sob Type 2 chris betes mellitus 69754040 E11.9 A1C is still elevated to 7.4 and was 7.5 due to inactivity and was 7.5 last in august Weight stable, will work on losing weight and more exercise we are wondering whether he has an ongoing issue Diabetic p eripheral neuropathy 999350561 E11.40 seems to be about the same but is noticing some burning at night [id number] Jordan Trevino [facility] Internal Medicine [address] [facility] [address],[place] [address] 11/15/2020 14:17:02 11/15/2020 15:03:35 Essential hypertension 48341510 I10 currently stable overall checking bp overall is ok at home denies major sx no cp no sob Type 2 chris betes mellitus 54515049 E11.9 A1C is better at 7.3 but was 7.4 and was 7.5 due to inactivity and was 7.5 last in august Weight stable, will work on losing weight and more exercise we are wondering whether he has an ongoing issue Neuropathy due to diabetes mellitus 379173866 E11.40 stable and has not progressed [id number] Jordan Trevino [facility] Internal Medicine [address] [facility] [address],[place] 7 02/16/2021 13:25:10 02/16/2021 15:57:11 Type 2 diabetes mellitus 00552987 E11.9 A1C is better at 7.5 but was 7.3 7.4 and was 7.5 due to inactivity and was 7.5 last in august Weight stable, will work on losing weight and more exercise we are wondering whether he has an ongoing issue Essential hypertension 15237208 I10 currently stable overall checking bp overall is ok at home denies major sx no cp no sob Trigger fi nger of left hand 0247582926 3942810 M65.30 getting worse and locking on him Basal cell carcinoma of skin 195360750 C44.91 Neuropathy due to diabetes mellitus 110924054 E11.40 stable and has not progressed Constipation 58883308 K5 9.00 to try metamucil as directed along with probiot as noted Dyspnea 530576448 R06.00 occurs when he lays down initially then he notices once he adjusts his pillow he feels betterhe does snore a lot Sleep apnea 59970868 G47 .30 very suspicious for NAZANIN we will get home study [id number] Jordan Trevino, [facility] Internal Medicine [address] [facility],[place] [address] 06/28/2021 15:31:15 06/28/2021 16:57:55 Neuropathy due to diabetes mellitus 525908094 E11.40 stable and has not progressed Essential hypertension 12934911 I10 currently stable overall checking bp overall is ok at home denies major sx no cp no sob Type 2 chris betes mellitus 52301476 E11.9 A1C is a bit worse at 7.8 and then at 7.5 but was 7.3 7.4 and was 7.5 due to inactivity and was 7.5 last in august Weight stable, will work on losing weight and more exercise we are wondering whether he has an ongoing issue Infection of toenail 585 4463798 3948653 B99.9 [id number] Jordan Trevino, [facility] Internal Medicine [address] [facility],[address] [place] [address] 09/20/2021 08:48:07 09/23/2021 09:24:19 Diverticulitis 448214625 K57.92 believe this is what we are seeingwe are going to stop the doxy as the lyme was neg mono was pos but not sure how this fitsaugmen tin will be used Essential hypertension 02771887 I10 currently stable overall checking bp overall is ok at home denies major sx no cp no sob Type 2 chris betes mellitus 52613265 E11.9 A1C is pending it was at 7.8 and then at 7.5 but was 7.3 7.4 and was 7.5 due to inactivity and was 7.5 last in august Weight stable, will work on losing weight and more exercise we are wondering whether he has an ongoing issue [id number] Jordan Trevino [facility] Internal Medicine [address] [facility] [address],[place] [address] 11/25/2021 10:37:45 11/25/2021 11:40:08 Type 2 diabetes mellitus 66979218 E11.9 A1C is at 7.8 and then at 7.5 but was 7.3 7.4 and was 7.5 due to inactivity and was 7.5 last in august Weight stable, will work on losing weight and more exercise we are wondering whether he has an ongoing issue Essential hypertension 87497816 I10 currently stable overall checking bp overall is ok at home denies major sx no cp no sob Depression screening 171 479779 Z13.31 PHQ2 normal today [id number] Jordan Trveino [facility] Internal Medicine [address] [facility],[place] [address] 02/27/2022 10:05:28 02/27/2022 10:48:52 Type 2 diabetes mellitus 69508184 E11.9 A1C is down to 7.1 and this is trulicity at 7.8 and then at 7.5 but was 7.3 7.4 and was 7.5 due to inactivity and was 7.5 last in august Weight stable, will work on losing weight and more exercise we are wondering whether he has an ongoing issue Essential hypertension 20952297 I10 currently stable overall checking bp overall is ok at home denies major sx no cp no sob Diverticulitis 279155303 K57.92 doing much better and is feeling good [id number] Jordan Trevino [facility] Internal [facility] [address] [facility] [place] [address] 06/02/2022 10:57:41 06/02/2022 12:25:39 Type 2 diabetes mellitus 03939638 E11.9 A1C is down to 7.1 and prior was a1c of 7.1 and this is trulicity at 7.8 and then at 7.5 but was 7.3 7.4 and was 7.5 due to inactivity and was 7.5 last in august Weight stable, will work on losing weight and more exercise we are wondering whether he has an ongoing issue underlying given recent UTI Essential hypertension 11644462 I10 currently stable overall checking bp overall is ok at home denies major sx no cp no sob Neuropathy due to diabetes mellitus 774947894 E11.40 stable and has not progressed Pain in scrotum N50.82 will need a spec referral consider US Acute urin jhon tract infection 545001275 N39.0 has been treated so we will check Meralgia p aresthetica of right leg [id number] 45259 G57.11 Tick bite 33656618 W57.X XXA 35140 Jordan Trevino [facility] Internal Medicine [address] [facility],[place] itorlando [place] [address] 08/07/2022 11:52:13 08/08/2022 15:12:15 Type 2 diabetes mellitus 68233826 E11.9 A1C is down to 7.3 was [...] issue underlying given recent UTI Essential hypertension 65033005 I10 currently stable overall checking bp overall is ok at home denies major sx no cp no sob Acute urin jhon tract infection 869638746 N39.0 has been treated so we will check Gout 03210651 M10.9 discusses gout etiology and diet and allopurino l we will chke lab next visitand hope cont allopurino l for now Kidney stone 89573413 N2 0.0 quiet and is followed [place] urology [place] psa [address]207 Jordan Trevino [facility] Internal Medicine [address] [facility],[place] it[place] [address] 09/26/2022 14:01:46 09/26/2022 15:18:06 Type 2 diabetes mellitus 45084526 E11.9 A1C is down to 6.9 he [...] underlying given recent scrotal discomfort Essential hypertension 93387341 I10 currently stable overall checking bp overall is ok at home denies major sx no cp no sob Advance care planning 71 9874576 Z71.89 utd Pain in scrotum 95335905 N50.82 [place] [id number] Jordan Trevino [facility] Internal Medicine [address] [facility],[place] [address] 12/25/2022 10:50:19 12/25/2022 12:10:57 Essential hypertension 31620897 I10 currently stable overall checking bp overall is ok at home denies major sx no cp no sob Type 2 chris betes mellitus 05421485 E11.9 A1C is up to 7.3 he was 6.9 he was 7.3 was 7.1 7.5 last in augusthe has been c/o no energyWeig ht stable, will work on losing weight and more exercise we are wondering whether he has an ongoing issue underlying given recent scrotal discomfort Urinary bladder pain 158 31586 R39.82 Vitamin D deficiency 347 16074 E55.9 Disorder o f vitamin B12 445782304 E53.8 Fatigue 11370217 R53.83 [id number] Jordan Trevino [facility] Internal [facility] [address] [facility],[place] [address] 03/21/2023 08:59:40 03/21/2023 10:21:10 Type 2 diabetes mellitus 17321019 E11.9 A1C is up to 7.3 he was 6.9 he was 7.3 was 7.1 7.5 last in augusthe has been c/o no energyWeig ht stable, will work on losing weight and more exercise we are wondering whether he has an ongoing issue underlying given recent scrotal discomfort [id number] Jordan Trevino DO [facility] Internal Medicine [address] [facility],[place] [address] 05/29/2023 14:48:05 05/29/2023 16:08:28 Essential hypertension 04839950 I10 currently stable overall checking bp overall is ok at home denies major sx no cp no sob Type 2 chris betes mellitus 64298218 E11.9 A1C is 7.1 and prior to 6.9 to 7.3 he was 6.9 he was 7.3 was 7.1 7.5 last in augusthe has been c/o no energyWeig ht stable, will work on losing weight and more exercise we are wondering whether he has an ongoing issue underlying given recent scrotal discomfort Diverticul osis of colon 491601598 K57.30 quiet and doing good [id number] Jordan Trevino [facility] Internal Medicine [address] [place] [address] 09/03/2023 13:27:46 09/03/2023 14:48:49 Adult health examination 228440442 Z00.00 here for recheck and is doing ok his exam is difficult due to his obesity Screening for cardiovascular system disease 606987730 Z13.6 here and doing well Screening for malignant neoplasm of colon 876020522 Z12.11 per gi appt Essential hypertension 27237366 I10 currently stable overall checking bp overall is ok at home denies major sx no cp no sob Hypercholesterolemia 136 98604 E78.00 Pain in testicle 9656539 9 N50.819 Pelvic and perineal pain 972091938 R10.2 460463 Jordan Trevino [facility] Internal Medicine [address] [facility],[place] [address] 12/26/2023 14:29:00 12/26/2023 15:08:11 Type 2 diabetes mellitus 32611858 E11.9 A1C is 7.2 was7.1 and prior to 6.9 to 7.3 he was 6.9he has been c/o no energyWeig ht stable, will work on losing weight and more exercise we are wondering whether he has an ongoing issue underlying given recent scrotal discomfort Essential hypertension 45179214 I10 currently stable overall checking bp overall is ok at home denies major sx no cp no sob Gout 98226434 M10.9 discusses gout etiology and diet and allopurino l we will chke lab next visitand hope cont allopurino l for now Claustrophobia 53865565 F40.240 Pelvic and perineal pain 906539261 R10.2 [id number] Jordan Trevino [facility] Internal Medicine [address] [facility],[place] [facility] [address] 03/19/2024 13:18:33 03/19/2024 13:58:53 Depression screening 029108212 Z13.31 PHQ2 normal today Essential hypertension 98048706 I10 currently stable overall checking bp overall is ok at home denies major sx no cp no sob Type 2 chris betes mellitus 29957862 E11.9 A1C is 7.3 was7.2 was7.1 and prior to 6.9 to 7.3 he was 6.9he has been c/o no energyWeig ht stable, will work on losing weight and more exercise we are wondering whether he has an ongoing issue underlying given recent scrotal discomfort [id number] Jordan Trevino [facility] Internal Medicine [address] [facility],[place] [address] 06/11/2024 13:44:05 06/11/2024 14:22:39 Depression screening 483165532 Z13.31 PHQ2 normal today Essential hypertension 16562504 I10 currently stable overall checking bp overall is ok at home denies major sx no cp no sob Type 2 chris betes mellitus 90892409 E11.9 A1C is 7.5 was7.2 was7.1 and prior to 6.9 to 7.3 he was 6.9he has been c/o no energyWeig ht stable, will work on losing weight and more exercise we are wondering whether he has an ongoing issue underlying given recent scrotal discomfort Gout 01577469 M10.9 discusses gout etiology and diet and allopurino l we will chke lab next visitand hope cont allopurino l for now Vitamin D deficiency 347 96751 E55.9 stable check level next 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 cont b12 [id number] Jordan Trevino [facility] Internal Medicine [address] [facility],[place] [address] 09/23/2024 14:10:00 09/23/2024 14:53:06 Depression screening 581280916 Z13.31 PHQ2 normal today Essential hypertension 07449863 I10 currently stable overall checking bp overall is ok at home denies major sx no cp no sob Type 2 chris betes mellitus 75248578 E11.9 A1C is 7.5 was7.2 was7.1 and prior to 6.9 to 7.3 he was 6.9he has been c/o no energyWeig ht stable, will work on losing weight and more exercise we are wondering whether he has an ongoing issue underlying given recent scrotal discomfort Pain in scrotum 46582671 N50.82 001588 will need a spec referral consider US Lesion of right eyelid [id number] 7718557 H02.9 [id number] Jordan Trevino DO [facility] Internal Medicine [address] [facility] [address],[place] [address] 12/24/2024 11:47:50 12/24/2024 15:53:54 Screening for cardiovascular system disease 899226911 Z13.6 here and doing well Screening for malignant neoplasm of colon 599178539 Z12.11 per gi appt Depression screening 171 323647 Z13.31 PHQ2 normal today Essential hypertension 39133962 I10 currently stable overall checking bp overall is ok at home denies major sx no cp no sob Type 2 chris betes mellitus 70635619 E11.9 A1C is 7.5 was7.2 was7.1 and prior to 6.9 to 7.3 he was 6.9he has been c/o no energyWeig ht stable, will work on losing weight and more exercise we are wondering whether he has an ongoing issue underlying given recent scrotal discomfort Onychomyco sis of toenails 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.1 Preventive procedure 169 974007 Z00.00 [id number] here for recheck and is doing ok his exam is difficult due to his obesity Fatigue 58985805 R53.82 052828 Health Concerns Section Related Observation LastModified by Organization Detai ls LastModified Time None Recorded Concern Status LastModified by Organization Details LastModified Time None Recorded Advance Directives Directive None Recorded Payers Insurance Date Sequence Insurance Name Policy Number Policy Osorio Covered Member ID Osorio Member ID Guarantor Name 12/22/2024 2 [place] [id number] Yovany Mccarthy [id number] Yovany Mccarthy 12/21/2024 1 [place] Yovany Mccarthy [id number] Yovanyginny Mccarthy Notes Date Note Type Note Provider [...] few weeks ago still fatigued Jordan Trevino, DO [address] [place] [address], [place], [address], [facility] Internal Medicine 12/26/2023 15:04:48 4 text/htm l Care Management - HypertensionReported by PatientDEL[facility]or self care, patient reportsnot under emotional stress. For severity, patient reportssymptoms are improvinganddoes not interfere with daily activities. For associated symptoms, patient reportsno dizziness,no lightheadedness,no chest pain,no shortness of breath,no palpitations,no edema,no calf muscle cramps,no blurred vision,no confusion,no headaches, andno fatigue. Care Management - DiabetesReported by PatientHPIFor self [...] that he is still doing well Jordan AmritaAllen Trevino, [address] [place] [address], [address], [facility] Internal Medicine 03/19/2024 13:57:11 5 text/htm l Care Management - DiabetesReported by PatientDEL[facility]ENTERor self care, patient reportsseeing eye doctor yearly [...] here for rechk and is doing ok [email or web address] is 7.5 and stable not exercising muchdid have a bout with gout a while ago Jordan Trevino, [address] [place], [address], [facility] Internal Medicine 06/11/2024 14:09:06 5 text/htm l Care Management - DiabetesReported by PatientDEL[facility]ENTERor self care, patient reportsseeing eye doctor yearly for dilated eye exam,checking feet regularly,normal range of home blood sugars (in the low 100s), andno side effects from medications. For associated symptoms, patient reportssymptoms are usually well controlled,no fatigue,no dizziness,no excessive sweating,no headaches,no confusion,no increased thirst,no increased appetite,no increased urination,no blurred vision,no numbness of feet, andno calluses on feet. Care Management - HypertensionReported by PatientIFor self care, patient reportsnot under emotional stress. For severity, patient reportssymptoms are improvinganddoes not interfere with daily activities. For associated symptoms, patient reportsno dizziness,no lightheadedness,no chest pain,no shortness of breath,no palpitations,no edema,no calf muscle cramps,no blurred vision,no confusion,no headaches, andno fatigue.ROS as noted in the HPI here for rechk and is doing ok [email or web address] is 7.4 was 7.5 and stable not exercising muchdid have a bout with gout a while ago still having pain in the left scrotum regionalso having a growth on his right eyelid Jordan Trevino, DO [address] [facility], [place], [address], [facility] Internal Medicine 09/23/2024 16:44:42 5 text/htm [...] home.ROS as noted in the HPI Jordan Trevino, DO [address] [place], [address], [facility] Internal [facility] 12/24/2024 13:31:28
--- OUTSIDE RECORDS SUMMARY | 2025-03-13 19:09 | XMS_ITS | Encounter Summary ---
Author Organization [facility] Address [address] [place] [address] Phone Care Team Providers Care Special Procedure Tech Name Role Phone Jordan Trevino DO Primary Care Provider [phone] Encounter Details Date Type Department Care Team ([facility] st Contact Info) Description 10/01/2023 Transcribe Orders Virtual Department [address] [place] [address] Jordan Trevino DO [address] [facility] [place] [address] [email or web address] Pelvic and perineal pain (Primary Dx) Social [...] AM EST Pre-Admission Testing Pre Procedure Evaluation [address] [place] [address] Isiah Randhawa MD [address] [place] [phone] [email or web address] 03/30/2025 Procedure Pass [facility] Admitting Dept Virtual Department [address] [place] [address] 03/30/2025 10:15 AM EST Hospital Encounter [facility] Admitting Dept Virtual Department [address] [place] [address] Isiah Randhawa MD [address] [place] [phone] [email or web address] 03/30/2025 10:15 AM EST - 03/30/2025 10:30 AM EST Surgery [facility] Admitting Dept Virtual Department [address] [place] [address] Isiah Randhawa MD [address] [place] [address] [email or web address] COLONOSCOPY Scheduled Procedures Name Priority Associated Diagnoses Date/Ti me COLONOSCOPY History of colonic polyps 03/30/2025 10:15 AM EST documented as of this encounter Visit Diagnoses Diagnosis Pelvic and perineal pain- Primary History of colonic polyps Personal history of colonic polyps documented in this encounter Care Teams Special Procedure Tech Relationship Specialty Start Date End Date Jordan Trevino DO [email or web address] PCP - General Internal Medicine 02/05/17 documented as of this encounter Additional Source Comments The information contained in this document represents components of the legal health record. It is not the complete legal health record.[facility]
--- OUTSIDE RECORDS SUMMARY | 2025-03-13 19:09 | XMS_ITS | Encounter Summary ---
Author Organization [facility] Address [address] [place] [address] Phone Care Team Providers Care Crossing Gateman Name Role Phone Jordan Trevino Primary Care Provider [phone] Reason for Referral * Physical Therapy (Routine) - Closed Specialty Diagnoses / Procedures Referred By Deshawn t Referred To Contact Physical Therapy Diagnoses Encounter for rehabilitation Phil Pollard PA [address] [address] Phone: tel: fax: [facility] [address] [place] [address] Phone: tel: Referral ID Status Reason Start Date Expiration Date Visits Re quested Visits Authorized [id number] Closed 01/25/2023 01/25/2024 99 99 Encounter Details Date Type Department Care Team (Latest Contact Info) Description 01/25/2023 Transcribe Orders [facility] [address] [place] [address] Phil Pollard PA [address] [address] Encounter for rehabilitation (Primary Dx) [...] AM EST Pre-Admission Testing Pre Procedure Evaluation [address] [place] [address] Isiah Randhawa MD [address] [place] [phone] [email or web address] 03/30/2025 Procedure Pass [facility] Admitting Dept Virtual Department [address] [place] [address] 03/30/2025 10:15 AM EST Hospital Encounter [facility] Admitting [facility] Virtual Department [address] [place] [address] Isiah Randhawa MD [address] [place] [address] 03/30/2025 10:15 AM EST - 03/30/2025 10:30 AM EST Surgery [facility] Endoscopy Admitting Dept Virtual Department [address] [place] [address] Isiah Randhawa MD [address] [place] [address] [email or web address] COLONOSCOPY Scheduled Procedures Name Priority Associated Diagnoses Date/Ti or COLONOSCOPY History of colonic polyps 03/30/2025 10:15 AM EST Scheduled Referrals Name Type Priority Associated Diagnoses Orde r Schedule Ambulatory referral to [facility] Physical Therapy Outpatient Referral Routine Encounter for rehabilitation Ordered: 01/25/2023 documented as of this encounter Visit Diagnoses Diagnosis Encounter for rehabilitation- Primary History of colonic polyps Personal history of colonic polyps documented in this encounter Care Teams Crossing Gateman Relationship Specialty Start Date End Date Jordan Trevino DO [email or web address] PCP - General Internal Medicine 02/05/17 documented as of this encounter Additional Source Comments The information contained in this document represents components of the legal health record. It is not the complete legal health record.[facility]
--- OUTSIDE RECORDS SUMMARY | 2025-03-13 19:09 | XMS_ITS | Encounter Summary ---
Author Organization [facility] Address [address] [place] [address] Phone Care Team Providers Care Bioanalyst Name Role Phone Jordan Trevino DO Primary Care Provider [phone] Encounter Details Date Type Department Care Team ([facility] st Contact Info) Description 08/21/2022 Transcribe Orders Virtual Department [address] [place] [address] Jordan Trevino DO [address] [facility] [place] [address] [email or web address] Scrotal pain (Primary Dx) Social History Tobacco [...] AM EST Pre-Admission Testing Pre Procedure Evaluation [address] [place] [address] Isiah Randhawa MD [address] [place] [phone] [email or web address] 03/30/2025 Procedure Pass [facility] Admitting Dept Virtual Department [address] [place] [address] 03/30/2025 10:15 AM EST Hospital Encounter [facility] Admitting Dept Virtual Department [address] [place] [address] Isiah Randhawa MD [address] [place] [phone] [email or web address] 03/30/2025 10:15 AM EST - 03/30/2025 10:30 AM EST Surgery [facility] Admitting Dept Virtual Department [address] [place] [address] Isiah Randhawa MD [address] [place] [phone] [email or web address] COLONOSCOPY Scheduled Procedures Name Priority Associated Diagnoses [...] polyps documented in this encounter Care Teams Bioanalyst Relationship Specialty Start Date End Date Jordan Trevino DO [email or web address] PCP - General Internal Medicine 02/05/17 documented as of this encounter Additional Source Comments The information contained in this document represents components of the legal health record. It is not the complete legal health record.[facility]
--- OUTSIDE RECORDS SUMMARY | 2025-03-13 19:09 | XMS_ITS | Encounter Summary ---
Author Organization [facility] Address [address] [place] [address] Phone Care Team Providers Care Sheet Rock Applicator Name Role Phone Jordan Trevino DO Primary Care Provider [phone] Encounter Details Date Type Department Care Team ([facility] st Contact Info) Description 12/18/2023 Transcribe Orders [address] [place] [address] Jordan Trevino DO 179 [facility] [place] [address] [email or web address] Type 2 diabetes mellitus without complication, unspecified whether residential insulin use (Primary Dx) Social History Tobacco [...] AM EST Pre-Admission Testing Pre Procedure Evaluation [address] [place] [address] Isiah Randhawa MD [address] [place] [address] 03/30/2025 Procedure Pass [facility] Admitting Dept Virtual Department [address] [place] [address] 03/30/2025 10:15 AM EST Hospital Encounter [facility] Admitting Dept Virtual Department [address] [place] [address] Isiah Randhawa MD [address] [place] [address] 03/30/2025 10:15 AM EST - 03/30/2025 10:30 AM EST Surgery [facility] Admitting Dept Virtual Department [address] [place] [address] Isiah Randhawa MD [address] [place] [phone] [email or web address] COLONOSCOPY Scheduled Procedures Name Priority Associated Diagnoses Date/Ti me COLONOSCOPY History of colonic polyps 03/30/2025 10:15 AM EST documented as of this encounter Visit Diagnoses Diagnosis Type 2 diabetes mellitus without complication, unspecified whether residential insulin use- Primary History of colonic polyps Personal history of colonic polyps documented in this encounter Care Teams Sheet Rock Applicator Relationship Specialty Start Date End Date Jordan Trevino DO [email or web address] PCP - General Internal Medicine 02/05/17 documented as of this encounter Additional Source Comments The information contained in this document represents components of the legal health record. It is not the complete legal health record.[facility]
--- OUTSIDE RECORDS SUMMARY | 2025-03-13 19:10 | XMS_ITS | Encounter Summary ---
Author Organization [facility] Address [address] [place] [address] Phone Care Team Providers Care Engineer Station Mainline Name Role Phone Jordan Trevino DO Primary Care Provider [phone] Encounter Details Date Type Department Care Team ([facility] Contact Info) Description 11/28/2019 Transcribe Orders Virtual Department [address] [place] [address] Jordan Trevino DO [address] [facility] [place] [address] [place] [address] [email or web address] Cervicalgia (Primary Dx) Social History Tobacco Use [...] Department Care Team (Late Contact Info) Description 2025 9:00 AM EST Pre-Admission Testing Pre Procedure Evaluation [address] [place] [address] Isiah Randhawa MD [address] [place] [address] 03/30/2025 Procedure Pass [facility] Admitting Dept Virtual Department [address] [place] [address] 03/30/2025 10:15 AM EST Hospital Encounter [facility] Admitting Dept Virtual Department [address] [place] [address] Isiah Randhawa MD [address] [phone] [email or web address] 03/30/2025 10:15 AM EST - 03/30/2025 10:30 AM EST Surgery [facility] Admitting Dept Virtual Department [address] [place] [address] Isiah Randhawa MD [address] [phone] [email or web address] COLONOSCOPY Scheduled Procedures Name Priority Associated Diagnoses [...] documented as of this encounter Care Teams Engineer Station Mainline Relationship Specialty Start Date End Date Jordan Trevino DO [email or web address] PCP - General Internal Medicine 02/05/17 documented as of this encounter Additional Source Comments The information contained in this document represents components of the legal health record. It is not the complete legal health record.[facility]
--- OUTSIDE RECORDS SUMMARY | 2025-03-13 19:10 | XMS_ITS | Encounter Summary ---
Author Organization [facility] Address [address] [place] [address] Phone Care Team Providers Care Leathersmith Name Role Phone Jordan Trevino DO Primary Care Provider [phone] Encounter Details Date Type Department Care Team (Late Contact Info) Description 02/05/2017 Ancillary Orders Virtual Department [address] [place] [address] Mack Cardoso MD [address] [place] [address], [address] [address] [email or web address] Kidney stone Social History Tobacco Use Types [...] AM EST Pre-Admission Testing Pre Procedure Evaluation [address] [place] [address] Isiah Randhawa MD [address] [place] [address] 03/30/2025 Procedure Pass [facility] Admitting Dept Virtual Department [address] [place] [address] 03/30/2025 10:15 AM EST Hospital Encounter [facility] Admitting [facility] Virtual Department [address] [place] [address] Isiah Randhawa MD [address] [address] 03/30/2025 10:15 AM EST - 03/30/2025 10:30 AM EST Surgery [facility] Admitting Dept Virtual Department [address] [place] [address] Isiah Randhawa MD [address] [address] [email or web address] COLONOSCOPY Scheduled Procedures Name Priority Associated Diagnoses [...] documented as of this encounter Care Teams Leathersmith Relationship Specialty Start Date End Date Jordan Trevino DO [email or web address] PCP - General Internal Medicine 02/05/17 documented as of this encounter Additional Source Comments The information contained in this document represents components of the legal health record. It is not the complete legal health record.[facility]
--- OUTSIDE RECORDS SUMMARY | 2025-03-13 19:10 | XMS_ITS | Continuity of Care Document ---
Author Organization [place] [facility], [facility] Address [address] [facility] [place] [address] [place] [address] Assessment Encounter Date Assessment Date Assessment LastModified [...] hemoglobi n, gastroint estinal, stool 2024 025 [facility], [address] [place] [address], [id number], 12/24/2024 12:14:27 CBC w/ auto diff 2024 025 [facility], [address] [place] [address], [place], [address], 12/25/2024 12:14:33 CMP, serum or plasma 2024 025 [facility], [address] [place] [address], [id number], 12/24/2024 12:14:27 vitamin B12, serum 2024 025 [facility], [address] [place] [address], [id number], 12/25/2024 12:14:33 C-reactiv e protein, quantitat lali, serum or plasma 2024 [facility], [address] [place] [address], [id number], 12/24/2024 12:14:27 CBC 2024 [facility], [address] [place] [address], [address], 12/24/2024 12:14:27 CMP, serum or plasma 2024 [facility], [address] [place] [address], [id number], 12/25/2024 12:14:33 ESR (erythroc yte sedimenta tion rate), blood 2024 [facility], [address] [place] [address], [address], 12/24/2024 12:14:27 TSH, serum or plasma 2024 [facility], [address] [place] [address], [address], 12/24/2024 12:14:27 testoster one, total, serum 2024 [facility], [address] [place] [address], [id number], 12/29/2024 12:21:50 vitamin D, 25-hydrox y, total, serum 2024 [facility], [address] [place] [address], [id number], 12/24/2024 12:14:27 Referral None recorded. Procedures None recorded. Surgeries None recorded. Imaging None recorded. Medication Orders terbinafi ne HCl 250 mg tablet 2024 025 [id number], [address] [facility], [place], [address], 12/24/2024 12:13:11 Patient TargetsNo targets recorded. Patient Instructions Encounter Date Encounter Id Patient Instructions Last Modified By Organization Details Last Modified Time 12/24/2024 [id number] advance care planning: care instructions Not available 12/24/2024 12:13:06 Discussed and explained advance directives such as standard forms to the . Face to face discussion lasted for a duration of ___ minutes. Not available 12/08/2024 16:35:18 Reason for Referral None Reported. Results Created Date Observation Date Name Description Value Unit Range Abnormal Flag Note LastModifiedBy Organization Detail LastModifiedTime 03/13/2003/13/2025 imagi ng/di agnos tic resul t No observ ation record ed. [address] [place], [address], 03/13/2025 16:27:34 03/13/20 25 03/13/2025 imagi ng/di agnos tic resul t No observ ation record ed. [address] [place], [address], 03/13/2025 16:30:05 Result Notes None recorded. Problems Name Problem SNOMED Code Status Onset Date Resolution Date Notes Provider Name and Address Organization Details Recorded Time Type 2 diabetes mellitus 43511133 Active 2017 BRENNAN Flores [facility] 5 08:37:25 Neuropath y due to diabetes mellitus 205310699 Active 2017 Shelley banda [place] [facility] 5 08:37:25 Ankle edema 18346188 Active 2017 Shelley banda [facility] 5 08:37:25 Sprain of ankle 01362200 Active 2017 [facility] 08:37:03 Essential hypertens ion 50865741 Active 2017 [facility] 5 08:37:25 Obesity 332193049 Active 2017 [facility] 5 08:37:25 Kidney stone 18762162 Active 2019 Jordan Rios, [address], [address], [facility] 0 09:38:07 Oncocytom a of right kidney 841513827465 9107 Active 2020 Jordan Rios, [address], [address], [facility] 1 15:35:45 Diverticu litis 842619396 Active 2021 [facility] 5 08:37:25 Anaplasmo sis 82512763 Active 2021 [facility] 5 08:37:25 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 2021 [facility] 5 08:37:25 Pain in scrotum 25031008 Active 2022 Jordan Rios, [address], [address], [facility] 5 14:39:43 Acute urinary tract infection 189510664 Active 2022 [facility] 5 08:37:03 Meralgia paresthet ica of right leg 610213110705 108 Active 2022 [facility] 5 08:37:25 Dysuria 39594603 Active 2022 [facility] 5 08:37:25 Gout 45257230 Active 2022 Shelleysteve Zamora null, [facility] 5 08:37:25 Urinary bladder pain 29609123 Active 2022 Shelleysteve Zamora null, [facility] 5 08:37:25 Vitamin D deficienc y 84747006 Active 2022 Shelley Zamora null, [facility] 5 08:37:25 Disorder of vitamin B12 080030788 Active 2022 Shelley Zamora null, [facility] 5 08:37:25 Fatigue 44140792 Active 2022 Jordan Rios, [address], [address], [facility] 5 12:12:39 Paronychi a of toe 944047924 Active 2022 Shelley Zamora [facility] 5 08:37:03 Diverticu losis of colon 797259967 Active 2023 Shelley Zamora [facility] 5 08:37:25 Pain in testicle 96791881 Active 2023 Shelley Zamora [facility] 5 08:37:03 Pelvic and perineal pain 265605073 Active 2023 Shelley Zamora [facility] 5 08:37:03 Claustrop hobia 15836904 Active 2023 Shelley Zamora [facility] 5 08:37:25 Prostatit is 7187114 Active 2023 Shelley Zamora [facility] 5 08:37:25 Lesion of right eyelid 571451142524 31883 Active 2024 Jordan Rios, [address], [address], [facility] 5 14:49:18 Anemia 525282871 Active 2024 Jrodan Rios, DO [address] [facility], [place], [address], [facility] 22:20:46 Problem Notes None recorded. Procedures Surgical History Date Name Laterality Status Provider Name and Address Organization Details Recorded Time 8 Colonoscopy completed Dottie Marcelo [facility] 01/07/2019 10:43:08 0 Colonoscopy completed Anny Cook [facility] 03/18/2018 10:14:53 Imaging Results None [...] Updated DateTime 5 186.06 cm 33.7 kg/m2 926499. 24 g 97 % 87 /min 128/76 mm[Hg] MATTI Grissom [facility] 5 11:54:00 Social History Question Answer Notes LastModified by Organizat ion Details LastModified Time Tobacco Smoking Status Never Smoker Not Available [facility] 02/03/2020 03:36:23 What Was The Date Of [...] mcg/0.3 mL dose 03/07/2021 completed Not Available [facility] 3 16:38:46 COVID-19, mRNA, LNP-S, PF, 30 mcg/0.3 mL dose 07/02/2020 completed Not Available [facility] 3 16:38:46 COVID-19, mRNA, LNP-S, PF, 30 mcg/0.3 mL dose 07/24/2020 completed Not Available [facility] 3 16:38:46 Past Encounters Encounter ID Performer Location Encounter Start Date Encounter Closed Date Diagnosis/Indication Diagnosis SNOMED-CT Code Diagnosis ICD10 Code Diagnosis IMO Codes Diagnosis Note [id number] DO [facility] [address] [facility] [address],[place] [address] 12/24/2024 11:47:50 12/24/2024 15:53:54 Screening for cardiovascular system disease 902446028 Z13.6 here and doing well Screening for malignant neoplasm of colon 793627047 Z12.11 per gi appt Depression screening 171 466959 Z13.31 PHQ2 normal today Essential hypertension 12108479 I10 currently stable overall checking bp overall is ok at home denies major sx no cp no sob Type 2 chris betes mellitus 21283558 E11.9 A1C is 7.5 was7.2 was7.1 and prior to 6.9 to 7.3 he was 6.9he has been c/o no energyWeig ht stable, will work on losing weight and more exercise we are wondering whether he has an ongoing issue underlying given recent scrotal discomfort Onychomyco sis of toenails 895909087 B35.1 Preventive procedure 169 080531 Z00.00 49562352 here for recheck and is doing ok his exam is difficult due to his obesity Fatigue 33545431 R53.82 642557 Health Concerns Section Related Observation LastModified by Organization Detai ls LastModified Time None Recorded Concern Status LastModified by Organization Details LastModified Time None Recorded Payers Encounter Date Sequence Insurance Name Policy Number Policy Osorio Covered Member ID Osorio Member ID Guarantor Name 12/24/2024 2 [place] [id number] Yovany Mccarthy [id number] Yvoany Mccarthy 12/24/2024 1 [place] Yovany Mccarthy [id number] Yovany Mccarthy Notes Date Note Type [...] home.ROS as noted in the HPI Jordan Rios DO [address] [facility], [place], [address], [facility] 12/24/2024 13:31:28
--- OUTSIDE RECORDS SUMMARY | 2025-03-13 19:10 | XMS_ITS | Encounter Summary ---
Author Organization [facility] Address [address] [place] [address] Phone Care Team Providers Care Gate Agent Name Role Phone Jordan Trevino DO Primary Care Provider [phone] Encounter Details Date Type Department Care Team (Late Contact Info) Description 03/22/2018 Procedure Pass [facility] Endoscopy Admitting Dept Virtual Department [address] [place] [address] Social History Tobacco Use Types Packs/Day Years [...] AM EST Pre-Admission Testing Pre Procedure Evaluation [address] [place] [address] Isiah Randhawa MD [address] [place] [address] 03/30/2025 Procedure Pass [facility] Endoscopy Admitting Dept Virtual Department [address] [place] [address] 03/30/2025 10:15 AM EST Hospital Encounter [facility] Admitting Dept Virtual Department [address] [place] [address] Isiah Randhawa MD [address] [address] 03/30/2025 10:15 AM EST - 03/30/2025 10:30 AM EST Surgery [facility]oscopy Admitting Dept Virtual Department [address] [place] [address] Isiah Randhawa MD [address] [place] [address] [email or web address] COLONOSCOPY Scheduled Procedures Name Priority Associated Diagnoses Date/Ti me COLONOSCOPY History of colonic polyps 03/30/2025 10:15 AM EST documented as of this encounter Visit Diagnoses Not on filedocumented in this encounter Additional Health Concerns Infection Onset Date Last Indicated Resolved Time CoV-Risk 09/17/2021 09/17/2021 09/28/2021 1:22 AM EDT documented as of this encounter Care Teams Gate Agent Relationship Specialty Start Date End Date Jordan Trevino DO [email or web address] PCP - General Internal Medicine 02/05/17 documented as of this encounter Additional Source Comments The information contained in this document represents components of the legal health record. It is not the complete legal health record.[facility]
== END 2025-03-13 13:42 | disposition home or self-care (01) ==
LOC: HO.HMGCX 13:41
PROVIDERS: PCP Internal Medicine; Visit Provider Urology
DX: N40.0 Benign prostatic hyperplasia without lower urinary tract symptoms (principal); N50.819 Testicular pain, unspecified; R10.20 Pelvic and perineal pain unspecified side
CPT/HCPCS: 76770; 76870

== ENCOUNTER → 2025-03-13 13:45 | Outpatient (BNV) | payer MEDICARE, SELFPAY | PROVIDERS: PCP Internal Medicine; Visit Provider Radiology Diagnostic Radiology | DX: N40.0 Benign prostatic hyperplasia without lower urinary tract symptoms (principal); N50.82 Scrotal pain | CPT/HCPCS: 76770; 76870 ==

== ENCOUNTER 2025-03-23 13:43 | Outpatient (AMB) | payer MEDICARE, SELFPAY ==
--- OUTSIDE RECORDS SUMMARY | 2025-03-16 09:00 | XMS_ITS | Encounter Summary ---
Author Organization [facility] Address [address] [facility] [address] [place] [address] Phone Care Team Providers Care Social Worker Masters Name Role Phone Jordan Trevino Primary Care Provider [phone] ChacortaJordan box Primary Care Provider [phone] Encounter Details Date Type Department Care Team ([facility] st Contact Info) Description 2025 9:00 AM EST Pre-Admission Testing Pre Procedure Evaluation [address] [place] [address] Isiah Randhawa MD [address] [address] [email or web address] Social History Tobacco Use Types Packs/Day Years [...] Answer Date Recorded No 08/25/2022 No 08/25/2022 Reliable internet access at home? Not on file 08/25/2022 Device with a working camera? Not on file Intimate Partner Violence Answer Date R ecorded Are you denied basic needs s uch as food, clothing, or medical care? No 03/18/2025 In the past 12 months have y ou been in a relationship with a person who hurts, threatens, or tries to control you? No 03/18/2025 Are you denied basic needs s uch as food, clothing, or medical care? No 03/18/2025 In the past 12 months have y ou been in a relationship with a person who hurts, threatens, or tries to control you? No 03/18/2025 Sex and Gender Information Value Date Recorded Sex Assigned at Not on file Legal Sex Male 10:06 PM EDT Gender Identity Not on file Sexual Orientation Not on file documented as of this encounter Last Filed Vital Signs Vital Sign Reading Time Taken Comments Blood Pressure - - Pulse - - Temperature - - Respiratory Rate - - Oxygen Saturation - - Inhaled Oxygen Concentration - - Weight 112.5 kg (248 lb) 03/18/2025 9:24 AM EST Height 188 cm (6' 2 ) 03/18/2025 9:24 AM EST Body Mass Index 31.84 03/18/2025 9:24 AM EST documented in this encounter Progress Notes * Nimisha Gomez RN - 2025 9:00 AM EST This preprocedure call occurred on March 18, 2025. Reviewed prep instructions. All questions answered. Ride home arranged. Patient verbalized understanding documented in this encounter Plan of Treatment Upcoming Encounters Date Type Department Care Team (Late st Contact Info) Description 03/30/2025 Procedure Pass [facility] Endoscopy Admitting Dept Virtual Department [address] [place] [address] 03/30/2025 10:15 AM EST Hospital Encounter [facility] Endoscopy Admitting Dept Virtual Department [address] [place] [address] Isiah Randhawa MD [address] [place] [address] 03/30/2025 10:15 AM EST - 03/30/2025 10:30 AM EST Surgery [facility]oscopy Admitting Dept Virtual Department [address] [place] [address] Isiah Randhawa MD [address] [place] [phone] [email or web address] COLONOSCOPY Scheduled Procedures Name Priority Associated Diagnoses Date/Ti me COLONOSCOPY History of colonic polyps 03/30/2025 10:15 AM EST documented as of this encounter Goals Goal Patient Goal Type Associated Problems Recent Progress Patient-Stated? Author Autogenerat ed Goal Care Plan Autogenerated Problem No Nimisha Gomez RN documented as of this encounter Visit Diagnoses Not on filedocumented in this encounter Additional Health Concerns Active Problems Noted Date Diagnosed Date Autogenerated Problem 03/13/2025 documented as of this encounter Care Teams Social Worker Masters Relationship Specialty Start Date End Date Jordan Trevino DO PCP - General Internal Medicine 02/05/17 03/16/25 Jordan Trevino DO [address] [place] [address] PCP - General Internal Medicine 03/17/25 documented as of this encounter Additional Source Comments The information contained in this document represents components of the legal health record. It is not the complete legal health record.[facility]
--- NOTE | 2025-03-23 13:48 | MHC.OFFVIS ---
Intake Visit Reasons: 3m/US/PVR (set)UA) Intake Note: Patient is present for 3M/US/UA/PVR IMAGIN03/13/25 Urology Medication:NONE Antibiotic Allergy:NONE Blood Thinner:NONE Todays PVR:0ML'S Heat Treat Puller Required: No Allergies No Known Drug Allergies Allergy (Unknown, Verified 03/23/25 13:57) Unknown Medication List - Last Reconciled 03/23/25 by Jumana Cespedes MD blood sugar diagnostic (OneTouch Verio test strips) As directed lisinopril 5 mg PO DAILY metformin 1,000 mg PO DAILY rosuvastatin 5 mg PO DAILY semaglutide (Ozempic) 1 mg (0.75 mL) subcut QWEEK HPI Comments Details: 03/21/2025--Josesito presents for follow-up he was seen last on 12/25/2024 for chronic testicular pain, an ultrasound of the testicles and kidneys on 03/13/2025. Multiple bilateral renal cysts, both testicles on scrotal ultrasound are normal. History of Present Illness The patient is a 80 year old male presenting for a follow-up visit regarding chronic testicular pain. He was last seen for this issue on 12/25/24. The recent scrotal ultrasound showed no anatomical cause for the patient's pain. The etiology is thought to be neuropathic. The patient has a history of diabetes mellitus and reports associated neuropathy in the soles of his feet and the tips of his fingers. He notes that the testicular pain sometimes awakens him at night, and he takes two Tylenol tablets for it, which provides some relief after about 20 minutes. Results - Imaging: An ultrasound of the testicles and kidneys was performed on 03/13/25. -Retroperitoneal Ultrasound: Findings showed multiple bilateral. and the prostate was not enlarged. - Scrotal Ultrasound: Both testicles appeared normal with no masses identified, epididymal cysts were also noted. Plan 1. Chronic Testicular Pain - The recent scrotal ultrasound showed no anatomical cause for the patient's pain - Recommended management includes limiting activities that aggravate the area and using ytek-oho-apyopta analgesics such as extra-strength Tylenol or Motrin as needed. 2. Bilateral Renal Cysts - The ultrasound finding of multiple bilateral, fluid-filled renal cysts meeting criteria of benign, simple cysts - No further workup or intervention is required at this time. 3. Prostate Cancer Screening - Although the prostate was not enlarged on ultrasound, a PSA blood test is recommended for screening. - Plan to follow up in one year. 12/25/2024-Josesito is a 79-year-old male presenting as a new patient due to chronic scrotal/testicular pain. He had a scrotal ultrasound in review of his referral notes he had a scrotal ultrasound in 2022 that was unremarkable. History of Present Illness The patient is a 78-year-old female presenting with chronic scrotal/testicular pain. The pain has persisted for about 10 years, described as nagging and sometimes squeezing, with nonspecific localization between the testicles. It worsens with sitting or driving, and relief is achieved with Tylenol, especially at night. Patient states he has seen prior urologist for this concern he was referred to pelvic floor physical therapy. The patient has gives a history of kidney stones, which have been passed naturally, and a benign renal tumor identified via CT scan. Type 2 diabetes mellitus is present, influencing nocturnal urinary frequency, and there is a history of gout, previously treated with allopurinol. 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 Pain in testicle Prostatitis Claustrophobia Surgical History H/O colonoscopy Review of Systems Const All systems reviewed & are unremarkable except as noted in HPI and below Reports no additional complaints Eyes Reports no additional complaints ENT Reports no additional complaints Card Reports no additional complaints Resp Reports no additional complaints GI Reports no additional complaints Reports as per HPI Musc Reports no additional complaints Skin/Breast Reports system reviewed and no additional complaints, except as documented Neuro Reports no additional complaints Psych Reports no additional complaints Endo Reports no additional complaints Akash/Lymph Reports no additional complaints Aller/Immun Reports no additional complaints Office Procedures Post Void Residual Post Residual Void Post Void Residual (PVR): 0 14438-Gmtk Void Residual by ultrasound Assessment & Plan Assessment & Plan Plan Plan 1. Chronic Testicular Pain - The recent scrotal ultrasound showed no anatomical cause for the patient's pain - Recommended management includes limiting activities that aggravate the area and using ockg-sbb-daavblo analgesics such as extra-strength Tylenol or Motrin as needed. 2. Bilateral Renal Cysts - The ultrasound finding of multiple bilateral, fluid-filled renal cysts meeting criteria of benign, simple cysts - No further workup or intervention is required at this time. 3. Prostate Cancer Screening - Although the prostate was not enlarged on ultrasound, a PSA blood test is recommended for screening. - Plan to follow up in one year. Patient Instructions: The patient had an opportunity to ask questions regarding treatment plan. The patient expressed understanding and agreement with the above treatment plan. The patient is aware they should contact our office by phone for worsening of their current condition or the appearance of new symptoms. Compliance is encouraged with any medications and followup testing that is ordered. It is a privilege to be allowed the opportunity to participate in the urologic care of your patient. If you have any questions or concerns regarding treatment for the above conditions please do not hesitate to contact me. The office telephone contact is [phone]. This note is constructed in part using voice recognition software. While every effort has been made to ensure accuracy taxi dancer errors may have been included. Yours sincerely, Jumana Cespedes MD Scribe Plan - Not visible on output: Patient was informed and verbally consented to the use of an ambient scribe for clinic note documentation during this visit. Coding Level of Care Code Est Pt Level 4 (54558) CPT Codes Post Residual Void - PVR CPT Code: 27369-Birv Void Residual by ultrasound ([id number])
--- OUTSIDE RECORDS SUMMARY | 2025-03-23 17:10 | XMS_ITS | Encounter Summary ---
Author Organization [facility] Address [address] [facility] [address] [place] [address] Phone Care Team Providers Care Professor Of Sport Management Name Role Phone Jordan Trevino DO Primary Care Provider [phone] Jordan Trevino DO Primary Care Provider [phone] Encounter Details Date Type Department Care Team ([facility] st Contact Info) Description 12/18/2023 Transcribe Orders [address] [place] [address] Jordan Trevino DO [address] [facility] [address] [place], [place] [id number] [email or web address] Type 2 diabetes mellitus without complication, unspecified whether mcc insulin use (Primary Dx) Social History Tobacco [...] Pass [facility] Admitting Dept Virtual Department [address] [place] [address] 03/30/2025 10:15 AM EST Hospital Encounter [facility] Admitting [facility] Virtual Department [address] [place] [address] Isiah Randhawa MD [address] [place] [email or web address] 03/30/2025 10:15 AM EST - 03/30/2025 10:30 AM EST Surgery [facility]oscopy Admitting Dept Virtual Department [address] [place] [address] Isiah Randhawa MD [address] [place] [address] [email or web address] COLONOSCOPY Scheduled Procedures Name Priority Associated Diagnoses Date/Ti me COLONOSCOPY History of colonic polyps 03/30/2025 10:15 AM EST documented as of this encounter Visit Diagnoses Diagnosis Type 2 diabetes mellitus without complication, unspecified whether 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 It is not the complete legal health record.[facility]
--- OUTSIDE RECORDS SUMMARY | 2025-03-23 17:10 | XMS_ITS | Continuity of Care Document ---
Author Organization [facility] Address [address] [facility] [place] [address] [place] [address] Assessment Encounter Date Assessment Date Assessment LastModified by Organization Details LastModified Time 03/18/2025 03/18/2025 [address] [place] [address] ([employer]) MDM MODERATE MUST MEET 2 OUT OF [...] EACH ELEMENT THAT IS COVERED Not available 03/18/2025 14:46:00 Plan of Treatment Reminders Order Date Submit Date Provider Last Modified By Organization Details Last Modified Time Details Appointments FOLLOW UP 15 2025 01:30P M DR RIOS Not available Not available Not available Lab None recorded. Referral None recorded. Procedures None recorded. Surgeries None recorded. Imaging None recorded. Medication Orders Ozempic 1 mg/dose (4 mg/3 mL) subcutane ous pen injector 2024 025 [id number], [address] [facility], [place], [address], 03/18/2025 14:42:19 Patient TargetsNo targets recorded. Patient InstructionsNo instructions recorded. Reason for Referral None Reported. Results Created Date Observation Date Name Description Value Unit Range Abnormal Flag Note LastModifiedBy Organization Detail LastModifiedTime 03/13/20 25 03/13/2025 imagi ng/di agnos tic resul t No observ ation record ed. [address] [place], [address], 2025 08:57:42 03/13/20 25 03/13/2025 imagi ng/di agnos tic resul t No observ ation record ed. [email or web address] [place], [address], 2025 08:58:41 Result Notes None recorded. Problems Name Problem SNOMED Code Status Onset Date Resolution Date Notes Provider Name and Address Organization Details Recorded Time Type 2 diabetes mellitus 20158237 Active 2017 Shelley banda [facility] 5 08:37:25 Neuropath y due to diabetes mellitus 181427850 Active 2017 Shelley banda [facility] 5 08:37:25 Ankle edema 03680570 Active 2017 Shelley banda [facility] 5 08:37:25 Sprain of ankle 10978499 Active 2017 Shelley banda [facility] 5 08:37:03 Essential hypertens ion 42781603 Active 2017 Shelley banda [facility] 5 08:37:25 Obesity 678214930 Active 2017 Shelley banda [facility] 5 08:37:25 Kidney stone 99654430 Active 2019 Jordan Rios DO [address] [place] [address], [address], 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 Shelleysteve Zamora null, [facility] 5 08:37:25 Pain in scrotum 54543503 Active 2022 Jordan Rios, [address], [address], [facility] 5 14:39:43 Acute urinary tract infection 825361713 Active 2022 Shelleysteve Zamora [facility] 5 08:37:03 Meralgia paresthet ica of right leg 709832154823 108 Active 2022 Shelley Zamora null, [facility] 5 08:37:25 Dysuria 97521935 Active 2022 Shelley Zamora null, [facility] 5 08:37:25 Gout 50913485 Active 2022 Shelley Zamora [facility] 5 08:37:25 Urinary bladder pain 66941495 Active 2022 Shelley Zamora null, [facility] 5 08:37:25 Vitamin D deficienc y 80795891 Active 2022 Shleley Zamora null, [facility] 5 08:37:25 Disorder of vitamin B12 106742970 Active 2022 Shelley Zamora null, [facility] 5 08:37:25 Fatigue 63620217 Active 2022 Jordan Rios, DO [address] [place] [address], [address], [facility] 5 12:12:39 Paronychi a of toe 593978112 [facility] 5 08:37:03 Diverticu losis of colon 071008022 Active 2023 Shelley banda, [facility] 5 08:37:25 Pain in testicle 79172154 Active 2023 Shelley Zamora solo, [facility] 5 08:37:03 Pelvic and perineal pain 941071615 Active 2023 Shelley banda, [facility] 5 08:37:03 Claustrop hobia 18992039 Active 2023 Shelley banda, [facility] 5 08:37:25 Prostatit is 0551454 [facility] 5 08:37:25 Lesion of right eyelid 512616641647 37359 Active 2024 Jordan Rios, DO [address] [place] [address], [address], [facility] 5 14:49:18 Anemia 833400238 Active 2024 Jordan Rios, DO [address] [place] [address], [address], [facility] 5 22:20:46 Problem Notes None recorded. Procedures Surgical History Date Name Laterality Status Provider Name and Address Organization Details Recorded Time 8 Colonoscopy completed Dottie Robertson [facility] 01/07/2019 10:43:08 0 Colonoscopy completed Anny Cook [facility] 03/18/2018 10:14:53 Imaging Results None [...] Available Not Available Not Available amoxicillin 875 mg-leoncio m clavulanate 125 mg tablet Take 1 [...] Not Available Not Available No t Available Multi Vitamin once daily active Not Available Not Available No t Available Trulicity 1.5 mg/0.5 mL subcutaneou s pen injector Inject 0.5 mL every week by subcutane ous route as directed for 90 days. 03/18 completed Not Available Not Available Not Available Trulicity 0.75 mg/0.5 mL subcutaneou s pen injector ADMINISTE R 0.75 MG UNDER THE SKIN EVERY WEEK 06/02 completed Not Available Not Available Not Available Ozempic 1 mg/dose (4 mg/3 mL) subcutaneou s pen injector Inject 1 mg every week by subcutane ous route for 30 days. 2024 active Not Available Not Available Not Avai lable Vitals Date Recorded Body height Body mass index (BMI) Body weight Oxygen saturation Heart rate Systolic And Diastolic Provider Name and Address Organization Details Last Updated DateTime 5 186.06 cm 34.1 kg/m2 462525. 02 g 98 % 74 /min 148/74 mm[Hg] Valentina Arellano [facility] 5 14:30:35 Social History Question Answer Notes LastModified by Organizat ion Details LastModified Time Tobacco Smoking Status Never Smoker Not Available [facility] 02/03/2020 03:36:23 What Was The Date Of Your Most Recent Tobacco Screening? 03/18/2025 [email or web address] Information not available 03/18/2025 Sex: Unknown Functional Status Question Answer Note [...] mcg/0.3 mL dose 03/07/2021 completed Not Available [facility] 3 16:38:46 COVID-19, mRNA, LNP-S, PF, 30 mcg/0.3 mL dose 07/02/2020 completed Not Available [facility] 3 16:38:46 COVID-19, mRNA, LNP-S, PF, 30 mcg/0.3 mL dose 07/24/2020 completed Not Available [facility] 3 16:38:46 Past Encounters Encounter ID Performer Location Encounter Start Date Encounter Closed Date Diagnosis/Indication Diagnosis SNOMED-CT Code Diagnosis ICD10 Code Diagnosis IMO Codes Diagnosis Note [id number] Jordan Rios DO [facility] [address] [facility],[place] [address] 03/18/2025 14:24:27 03/18/2025 15:05:20 Depression screening 237174475 Z13.31 PHQ2 normal today Essential hypertension 68614454 I10 currently stable overall checking bp overall is ok at home denies major sx no cp no sob Type 2 chris betes mellitus 42402065 E11.9 A1C is 7.6 was 7.5 was7.2 was7.1 and prior to 6.9 to 7.3 he was 6.9he has been c/o no energyWeig ht stable, will work on losing weight and more exercise we are wondering whether he has an ongoing issue underlying given recent scrotal discomfort Health Concerns Section Related Observation LastModified by Organization Detai ls LastModified Time None Recorded Concern Status LastModified by Organization Details LastModified Time None Recorded Payers Encounter Date Sequence Insurance Name Policy Number Policy Osorio Covered Member ID Osorio Member ID Guarantor Name 03/18/2025 2 [place] [id number] Yovany Mccarthy [id number] Yovany Mccarthy 03/18/2025 1 [place] [employer] Yovany Mccarthy [id number] Yovany Mccarthy Notes Date Note Type [...] andno fatigue.ROS as noted in the HPI doing better relates that he had been doing welltoenails are clearly getting betteroverall is doing ok Jordan Rios, DO [address] [facility], [place], [address], [facility] 03/18/2025 14:53:17
--- OUTSIDE RECORDS SUMMARY | 2025-03-23 17:10 | XMS_ITS | Encounter Summary ---
Author Organization [facility] Address [address] [facility] [address] [place] [address] Phone Care Team Providers Care Quality Improvement Coordinator (Rn) Name Role Phone Jordan Trevino Primary Care Provider [phone] ChacortaJordan box Primary Care Provider [phone] Encounter Details Date Type Department Care Team (Late Contact Info) Description 09/16/2021 Procedure Pass [facility], Ct Scan - [address] [address] Social History Tobacco Use Types Packs/Day Years [...] Pass [facility] Admitting Dept Virtual Department [address] [place] [address] 03/30/2025 10:15 AM EST Hospital Encounter [facility] Admitting [facility] Virtual Department [address] [place] [address] Isiah Randhawa MD [address] [place] [address] 03/30/2025 10:15 AM EST - 03/30/2025 10:30 AM EST Surgery [facility] Admitting Dept Virtual Department [address] [place] [address] Isiah Randhawa MD [address] [place] [phone] [email or web address] COLONOSCOPY Scheduled Procedures Name Priority Associated Diagnoses Date/Ti me COLONOSCOPY History of colonic polyps 03/30/2025 10:15 AM EST documented as of this encounter Visit Diagnoses Not on filedocumented in this encounter Additional Health Concerns Infection Onset Date Last Indicated Resolved Time CoV-Risk 09/17/2021 09/17/2021 09/28/2021 1:22 AM EDT documented as of this encounter Care Teams Quality Improvement Coordinator (Rn) Relationship Specialty Start Date End Date Jordan Trevino DO PCP - General Internal Medicine 02/05/17 03/16/25 Jordan Trevino DO [address] [place] [address] [place] [address] PCP - General Internal Medicine 03/17/25 documented as of this encounter Additional Source Comments The information contained in this document represents components of the legal health record. It is not the complete legal health record.[facility]
--- OUTSIDE RECORDS SUMMARY | 2025-03-23 17:10 | XMS_ITS | Encounter Summary ---
Author Organization [facility] Address [address] [facility] [address] [place] [address] Phone Care Team Providers Care General Operations Agent Name Role Phone Chacortaisauro Jordan Crowe DO Primary Care Provider [phone] Jordan Trevino DO Primary Care Provider [phone] Encounter Details Date Type Department Care Team ([facility] st Contact Info) Description 08/21/2022 Transcribe Orders Virtual Department [address] [place] [address] Jordan Trevino DO [address] [facility] [place] [address] [place] [address] [email or web address] Scrotal pain (Primary Dx) Social History Tobacco [...] Pass [facility] Admitting Dept Virtual Department [address] [place] [address] 03/30/2025 10:15 AM EST Hospital Encounter [facility] Admitting [facility] Virtual Department [address] [place] [address] Isiah Randhawa MD [address] [place] [phone] 03/30/2025 10:15 AM EST - 03/30/2025 10:30 AM EST Surgery [facility] Admitting Dept Virtual Department [address] [place] [address] Isiah Randhawa MD [address] [place] [id number] [email or web address] COLONOSCOPY Scheduled Procedures Name [...] Trace. IMPRESSION: No cause for pain identified. Jordan Trevino DO IMG US SCROTUM/PENIS Final Resul t documented in this encounter Visit Diagnoses Diagnosis Scrotal pain- Primary Unspecified disorder of male genital organs Scrotal pain Unspecified disorder of male genital organs History of colonic polyps Personal history of colonic polyps documented in this encounter Care Teams General Operations Agent Relationship Specialty Start Date End Date Jordan Trevino DO [email or web address] PCP - General Internal Medicine 02/05/17 03/16/25 Jordan Trevino DO [address] [place] [address] [email or web address] PCP - General Internal Medicine 03/17/25 documented as of this encounter Additional Source Comments The information contained in this document represents components of the legal health record. It is not the complete legal health record.[facility]
--- OUTSIDE RECORDS SUMMARY | 2025-03-23 17:10 | XMS_ITS | Data Portability ---
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) MDM MODERATE MUST MEET 2 OUT OF [...] FOLLOW UP 15 2025 01:30P M DR BIGDA Not available Not available Not available Lab hemoglobi n, gastroint estinal, stool 2024 025 [facility], [address] [place] [address], [id number], 12/24/2024 12:14:27 CBC w/ auto diff 2024 025 [facility], [address] [place] [address], [address], 12/25/2024 12:14:33 CMP, serum or plasma 2024 025 [facility], [address] [place] [address], [id number], 12/24/2024 12:14:27 vitamin B12, serum 2024 025 [facility], [address] [place] [address], [address], 12/25/2024 12:14:33 C-reactiv e protein, quantitat lali, serum or plasma 2024 025 [facility], [address] [place] [address], 118[address], 12/24/2024 12:14:27 CBC 2024 025 [facility], [address] [place] [address], [address], 12/24/2024 12:14:27 CMP, serum or plasma 2024 025 [facility], [address] [place] [address], [address], 12/25/2024 12:14:33 ESR (erythroc yte sedimenta tion rate), blood 2024 025 [facility], [address] [place] [address], [address], 12/24/2024 12:14:27 TSH, serum or plasma 2024 025 [facility], [address] [place] [address], [address], 12/24/2024 12:14:27 testoster one, total, serum 2024 025 [facility], [address] [place] [address], [address], 12/29/2024 12:21:50 vitamin D, 25-hydrox y, total, serum 2024 025 [facility], [address] [place] [address], [place], [address], 12/24/2024 12:14:27 uric acid, serum or plasma 2024 025 [facility], [address] [place] [address], [place], [address], 07/02/2024 12:48:46 Referral dermatolo gist referral 2024 025 sandro Nguyen MD, [address] [place], [address], 09/24/2024 08:45:08 urologist referral 2024 025 sandro Dunn MD, [address] [place] [address] , [place] [address], [place], [address], 10/21/2024 09:21:48 Procedures None recorded. Surgeries None recorded. Imaging None recorded. Medication Orders Ozempic 1 mg/dose (4 mg/3 mL) subcutane ous pen injector 2024 025 [id number], [address] [place], [address], 03/18/2025 14:42:19 terbinafi ne HCl 250 mg tablet 2024 025 [facility], [address] [facility], [place], [address], 12/24/2024 12:13:11 Patient TargetsNo targets recorded. Patient Instructions Encounter Date Encounter Id Patient Instructions Last Modified By Organization Details Last Modified Time 06/11/2024 [id number] gout: care instructions Not available 06/11/2024 14:07:02 learning about type 2 diabetes Not available 06/11/2024 14:07:02 type 2 diabetes: care instructions Not available 06/11/2024 14:07:02 high blood pressure: care instructions Not available 06/11/2024 14:07:02 learning about high blood pressure Not available 06/11/2024 14:07:02 12/24/2024 [id number] advance care planning: care instructions Not available 12/24/2024 12:13:06 Discussed and explained advance directives such as standard forms to the . Face to face discussion lasted for a duration of ___ minutes. 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 [address] [place], [address], 2025 08:57:42 03/13/20 25 03/13/2025 imagi ng/di agnos tic resul t No observ ation record ed. [address] [place], [address], 2025 08:58:41 Result Notes None recorded. Problems Name Problem SNOMED Code Status Onset Date Resolution Date Notes Provider Name and Address Organization Details Recorded Time Type 2 diabetes mellitus 39045741 Active 2017 [facility] 5 08:37:25 Neuropath y due to diabetes mellitus 504459690 Active 2017 [facility] 5 08:37:25 Ankle edema 17644325 Active 2017 [facility] 5 08:37:25 Sprain of ankle 10482453 Active 2017 [facility] 5 08:37:03 Essential hypertens ion 50357159 Active 2017 [facility] 5 08:37:25 Obesity 284137576 Active 2017 [facility] 5 08:37:25 Kidney stone 64563307 Active 2019 Jordan Trevino, DO [address] [place] [address], [address], [facility] 0 09:38:07 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 2020 Jordan Trevino, DO [address] [place] [address], [address], [place] [facility] 1 15:35:45 Diverticu litis 524406528 Active 2021 Shelley banda [facility] 5 08:37:25 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 Active 2021 [facility] 5 08:37:25 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 Shelley Zamora null, [facility] 5 08:37:25 Pain in scrotum Active 2022 Jordan Trevino, DO [address] [place] [address], [address], [facility] 5 14:39:43 Acute urinary tract infection 569378591 Active 2022 Shelley Zamora null, [facility] 5 08:37:03 Meralgia paresthet ica of right leg 544207433678 108 Active 2022 Shelley Zamora null, [facility] 5 08:37:25 Dysuria 99893102 Active 2022 Shelley Zamora null, [facility] 5 08:37:25 Gout 86550684 Active 2022 Shelley Zamora null, [facility] 5 08:37:25 Urinary bladder pain 85388234 Active 2022 Shelley Zamora [facility] 5 08:37:25 Vitamin D deficienc y 33723628 Active 2022 [facility] 5 08:37:25 Disorder of vitamin B12 575658001 Active 2022 Shelley Zamora [facility], [facility] 5 08:37:25 Fatigue 20317329 Active 2022 Jordan Trevino, DO [address] [place] [address], [place], [address], [facility] 5 12:12:39 Paronychi a of toe 203795416 Active 2022 Shelley Zamora null, [facility] 5 08:37:03 Diverticu losis of colon 187747359 Active 2023 [facility] 5 08:37:25 Pain in testicle 50768251 Active 2023 Shelley banda, [facility] 5 08:37:03 Pelvic and perineal pain 154547622 Active 2023 Shelley banda, [facility] 5 08:37:03 Claustrop hobia 98358336 Active 2023 Shelley banda, [facility] 5 08:37:25 Prostatit is 2209099 Active 2023 Shelleysteve banda, [facility] 5 08:37:25 Lesion of right eyelid 508607404275 47494 Active 2024 Jordan Trevino, DO [address] [place] [address], [address], [facility] 5 14:49:18 Anemia 480998257 Active 2024 Jordan Trevino, DO [address] [place] [address], [address], [facility] 5 22:20:46 Problem Notes None recorded. Procedures Surgical History Date Name Laterality Status Provider Name and Address Organization Details Recorded Time 8 Colonoscopy completed Dottie Robertson [facility] 01/07/2019 10:43:08 0 Colonoscopy completed Anny Cook [facility] 03/18/2018 10:14:53 Imaging Results None recorded. [...] active Not Available Not Available Not Avai sophiale Vitals Date Recorded Body height Body mass index (BMI) Body weight Heart rate Oxygen saturation Systolic And Diastolic Provider Name and Address Organization Details Last Updated DateTime 5 186.06 cm 32.9 kg/m2 012892. 68 g 75 /min 99 % 146/80 mm[Hg] Shelley Barrios [facility] 5 13:50:51 Date Recorded Body height Body mass index (BMI) Body weight Heart rate Oxygen saturation Systolic And Diastolic Provider Name and Address Organization Details Last Updated DateTime 5 186.06 cm 32.9 kg/m2 081145. 68 g 83 /min 98 % 140/78 mm[Hg] Gena Strong [facility] 5 14:23:56 Date Recorded Body height Body mass index (BMI) Body weight Oxygen saturation Heart rate Systolic And Diastolic Provider Name and Address Organization Details Last Updated DateTime 5 186.06 cm 33.7 kg/m2 845490. 24 g 97 % 87 /min 128/76 mm[Hg] MATTI BARBARA [facility] 5 11:54:00 Date Recorded Body height Body mass index (BMI) Body weight Oxygen saturation Heart rate Systolic And Diastolic Provider Name and Address Organization Details Last Updated DateTime 5 186.06 cm 34.1 kg/m2 712122. 02 g 98 % 74 /min 148/74 mm[Hg] Valentina Quirozer [facility] 5 14:30:35 Date Recorded Body height Body mass index (BMI) Body weight Heart rate Oxygen saturation Systolic And Diastolic Provider Name and Address Organization Details Last Updated DateTime 4 186.06 cm 32.5 kg/m2 444878. 91 g 82 /min 94 % 138/78 mm[Hg] Yovany Long [facility] 4 13:38:00 Social History Question Answer Notes LastModified by Organizat ion Details LastModified Time Tobacco Smoking Status Never Smoker Not Available [facility] 02/03/2020 03:36:23 What Was The Date [...] mL dose 03/07/2021 completed Not Available [facility] 3 16:38:46 COVID-19, mRNA, LNP-S, PF, 30 mcg/0.3 mL dose 07/02/2020 completed Not Available [facility] 3 16:38:46 COVID-19, mRNA, LNP-S, PF, 30 mcg/0.3 mL dose 07/24/2020 completed Not Available [facility] 3 16:38:46 Past Encounters Encounter ID Performer Location Encounter Start Date Encounter Closed Date Diagnosis/Indication Diagnosis SNOMED-CT Code Diagnosis ICD10 Code Diagnosis IMO Codes Diagnosis Note [id number] Jordan Trevino [facility] Internal [facility] [address] [facility] [address] [place] [address] 09/05/2017 09:52:19 09/05/2017 11:04:34 Type 2 diabetes mellitus 61419005 E11.9 doing well overall doing a good diet and is feeling well with some wgt loss Essential hypertension 67578009 I10 [id number] Jordan Trevino [facility] Internal Medicine [address] [facility],[place] [address] 12/19/2017 10:03:21 12/19/2017 11:32:01 Type 2 diabetes mellitus 51366032 E11.9 doing ok overall doing a good diet and is feeling well with some wgt loss Essential hypertension 16666868 I10 currently stable overall Adult [facility] th examination 819834549 Z00.00 discussed lab in detail Screening for cardiovascular system disease 303255719 Z13.6 here and doing well Screening for malignant neoplasm of colon 997058072 Z12.11 per gi appt Constipation 49520168 K5 9.00 to try metamucil as directed along with probiot [id number] Jordan Trevino DO [facility] [address] [facility] [address] [place] [address] 03/18/2018 09:57:59 03/18/2018 10:48:06 Essential hypertension 12058054 I10 currently stable overall Type 2 chris betes mellitus 36460352 E11.9 doing ok overall but needs to get back on track with eating better will get back to walking etc rechk in 3 mo Hepatitis C screening 41 2883486 Z11.59 next lab draw [id number] Jordan Trevino [facility] Internal Medicine [address] [facility] [address] [place] [address] 06/25/2018 09:42:49 06/25/2018 10:44:20 Adult health examination 264856808 Z00.00 here for recheck and is doing ok his exam is difficult due to his obesity Active or passive immunization 768304440 Z23 Type 2 chris betes mellitus 57906650 E11.9 doing ok overall but needs to get back on track with eating better a1c is 7.1 and is elevated now will get back to walking etc MUST DO THIS rechk in 3 mo a long discussion re need to lose the wgt he gained and to get his sugars down Essential hypertension 76814829 I10 currently stable overall [id number] Jordan Trevino DO [facility] [address] [facility],[place] [address] 09/30/2018 14:02:36 09/30/2018 15:17:49 Essential hypertension 53110827 I10 currently stable overall denies major sx no cp no sob Type 2 chris betes mellitus 30667097 E11.9 doing ok overall but needs to get back on track with eating better a1c is 7.1 and is the same as in march will get back to walking etc MUST DO THIS rechk in 3 mo a long discussion re need to lose the wgt he gained and to get his sugars down [id number] Jordan Trevino DO [facility] [address] [facility],[address] [place] [address] 01/07/2019 10:28:10 01/07/2019 11:35:43 Diverticulosis of sigmoid colon 974472714 K57.[address] of abdomen discussed with MB recommend cipro 500 mg bid x 10 days reaction to flagyl hasn't done well with augmentin in the past Diarrhea 82156137 R19.7 Type 2 chris betes mellitus 05487501 E11.65 Essential hypertension 78791795 I10 [id number] Jordan Trevino DO [facility] [address] [facility],[address] [place] [address] 01/17/2019 13:57:12 01/17/2019 14:54:27 Type 2 diabetes mellitus 58159313 E11.9 doing ok overall but needs to get back on track with eating better a1c is 6.9 was 7.1 and is the same as in may will get back to walking and needs to start agian rechk in 3 mo a long discussion re need to lose the wgt he gained and to get his sugars down Neuropathy due to diabetes mellitus 734032180 E11.40 about the same no major issues Essential hypertension 88685992 I10 currently stable overall denies major sx no cp no sob Traveler's diarrhea 1184 0006 A04.1 [id number] Jordan Trevino DO [facility] [address] [facility],[place] [address] 05/07/2019 09:50:32 05/07/2019 10:46:06 Type 2 diabetes mellitus 98872258 E11.9 A1C elevated to 7.2 due to inactivity after teeth pulling Weight stable, will work on losing weight and more exercise Essential hypertension 96943027 I10 currently stable overall denies major sx no cp no sob Neuropathy due to diabetes mellitus 200612226 E11.40 stable [id number] Jordan Trevino DO [facility] [address] [facility],[place] [address] 09/03/2019 09:05:30 09/03/2019 10:02:59 Neuropathy due to diabetes mellitus 024628539 E11.40 stable and has not progressed Essential hypertension 00015675 I10 currently stable overall denies major sx no cp no sob Type 2 chris betes mellitus 42268119 E11.9 A1C elevated to 7.5 due to inactivity Weight stable, will work on losing weight and more exercise we are wondering whether he has an ongoing issue Kidney stone 24452989 N2 0.0 quiet and is followed by urology needs psa Ankle edema 50872665 R60 .0 currently stable and no issue good pulses and no wounds Oral infection 582024049 K13.79 will chk lab to see if any residual infect Dysuria 21550639 R30.9 [id number] Jordan Trevino DO [facility] [address] [facility],[place] [address] 11/28/2019 09:29:10 11/28/2019 10:25:13 Type 2 diabetes mellitus 51870663 E11.9 A1C elevated to 7.5 due to inactivity Weight stable, will work on losing weight and more exercise we are wondering whether he has an ongoing issue Essential hypertension 91140820 I10 currently stable overall denies major sx no cp no sob Neuropathy due to diabetes mellitus 375202858 E11.40 stable and has not progressed Neck pain 67503259 M54.2 hurts to turn neck to the left most pain is on the left [id number] Jordan Trevino DO [facility] [address] [facility],[address] [address] 01/16/2020 11:33:30 01/16/2020 12:02:57 Pre-surgery evaluation 354265897 Z01.818 based on exam and history the patient is cleared for surgery [id number] Jordan Trevino DO [facility] [address] [facility] [address] [place] [address] 03/15/2020 08:46:20 03/15/2020 11:31:37 Essential hypertension 71768960 I10 currently stable overall checking bp overall is ok at home denies major sx no cp no sob Type 2 chris betes mellitus 16959866 E11.9 A1C is still elevated to 7.5 due to inactivity and was 7.5 last in august Weight stable, will work on losing weight and more exercise we are wondering whether he has an ongoing issue Neuropathy due to diabetes mellitus 545637816 E11.40 stable and has not progressed but had an issue on his toe right great toe has a darkened area on the nail relates he is treating area with home remedy no sx or visual evid of infection Onychomyco sis of toenails 964602590 B35.1 [id number] Jordan Trevino DO [facility] [address] [facility] [address] [place] [address] 08/09/2020 14:55:34 08/09/2020 16:17:21 Essential hypertension 41984312 I10 currently stable overall checking bp overall is ok at home denies major sx no cp no sob Type 2 chris betes mellitus 51270110 E11.9 A1C is still elevated to 7.4 and was 7.5 due to inactivity and was 7.5 last in august Weight stable, will work on losing weight and more exercise we are wondering whether he has an ongoing issue Diabetic p eripheral neuropathy 656952738 E11.40 seems to be about the same but is noticing some burning at night [id number] Jordan Trevino DO [facility] [address] [facility] [address],[place] [address] 11/15/2020 14:17:02 11/15/2020 15:03:35 Essential hypertension 30364834 I10 currently stable overall checking bp overall is ok at home denies major sx no cp no sob Type 2 chris betes mellitus 89391154 E11.9 A1C is better at 7.3 but was 7.4 and was 7.5 due to inactivity and was 7.5 last in august Weight stable, will work on losing weight and more exercise we are wondering whether he has an ongoing issue Neuropathy due to diabetes mellitus 218517592 E11.40 stable and has not progressed [id number] Jordan Trevino DO [facility] [address] [facility] [address] [place] [address] 02/16/2021 13:25:10 02/16/2021 15:57:11 Type 2 diabetes mellitus 05668978 E11.9 A1C is better at 7.5 but was 7.3 7.4 and was 7.5 due to inactivity and was 7.5 last in august Weight stable, will work on losing weight and more exercise we are wondering whether he has an ongoing issue Essential hypertension 46438140 I10 currently stable overall checking bp overall is ok at home denies major sx no cp no sob Trigger fi nger of left hand 6683993132 4275324 M65.30 getting worse and locking on him Basal cell carcinoma of skin 377965091 C44.91 Neuropathy due to diabetes mellitus 985225140 E11.40 stable and has not progressed Constipation 17605396 K5 9.00 to try metamucil as directed along with probiot as noted Dyspnea 287663463 R06.00 occurs when he lays down initially then he notices once he adjusts his pillow he feels betterhe does snore a lot Sleep apnea 62270340 G47 .30 very suspicious for NAZANIN we will get home study [id number] Jordan Trevino DO [facility] [address] [facility] [address] [place] [address] 06/28/2021 15:31:15 06/28/2021 16:57:55 Neuropathy due to diabetes mellitus 578504472 E11.40 stable and has not progressed Essential hypertension 59482701 I10 currently stable overall checking bp overall is ok at home denies major sx no cp no sob Type 2 chris betes mellitus 82115596 E11.9 A1C is a bit worse at 7.8 and then at 7.5 but was 7.3 7.4 and was 7.5 due to inactivity and was 7.5 last in august Weight stable, will work on losing weight and more exercise we are wondering whether he has an ongoing issue Infection of toenail 035 0791772 7387090 B99.9 [id number] Jordan Trevino [facility] Internal Medicine [address] [facility],[place] [address] 09/20/2021 08:48:07 09/23/2021 09:24:19 Diverticulitis 202243632 K57.92 believe this is what we are seeingwe are going to stop the doxy as the lyme was neg mono was pos but not sure how this fitsaugmen tin will be used Essential hypertension 15336824 I10 currently stable overall checking bp overall is ok at home denies major sx no cp no sob Type 2 chris betes mellitus 76600919 E11.9 A1C is pending it was at 7.8 and then at 7.5 but was 7.3 7.4 and was 7.5 due to inactivity and was 7.5 last in august Weight stable, will work on losing weight and more exercise we are wondering whether he has an ongoing issue [id number] Jordan Trevino [facility] Medicine [address] [facility],[place] [address] 11/25/2021 10:37:45 11/25/2021 11:40:08 Type 2 diabetes mellitus 46850212 E11.9 A1C is at 7.8 and then at 7.5 but was 7.3 7.4 and was 7.5 due to inactivity and was 7.5 last in august Weight stable, will work on losing weight and more exercise we are wondering whether he has an ongoing issue Essential hypertension 43810629 I10 currently stable overall checking bp overall is ok at home denies major sx no cp no sob Depression screening 171 284930 Z13.31 PHQ2 normal today [id number] Jordan Trevino [facility] Medicine [address] [facility] [address] 02/27/2022 10:05:28 02/27/2022 10:48:52 Type 2 diabetes mellitus 58387779 E11.9 A1C is down to 7.1 and this is trulicity at 7.8 and then at 7.5 but was 7.3 7.4 and was 7.5 due to inactivity and was 7.5 last in august Weight stable, will work on losing weight and more exercise we are wondering whether he has an ongoing issue Essential hypertension 18076539 I10 currently stable overall checking bp overall is ok at home denies major sx no cp no sob Diverticulitis 590255725 K57.92 doing much better and is feeling good [id number] Jordan Trevino [facility] Medicine [address] [facility],[place] [address] 06/02/2022 10:57:41 06/02/2022 12:25:39 Type 2 diabetes mellitus 08829958 E11.9 A1C is down to 7.1 and prior was a1c of 7.1 and this is trulicity at 7.8 and then at 7.5 but was 7.3 7.4 and was 7.5 due to inactivity and was 7.5 last in august Weight stable, will work on losing weight and more exercise we are wondering whether he has an ongoing issue underlying given recent UTI Essential hypertension 73692120 I10 currently stable overall checking bp overall is ok at home denies major sx no cp no sob Neuropathy due to diabetes mellitus 138508565 E11.40 stable and has not progressed Pain in scrotum N50.82 will need a spec referral consider [place] Acute urin jhon tract infection 363249951 N39.0 has been treated so we will check Meralgia p aresthetica of right leg [id number] 44853 G57.11 Tick bite 21082078 W57.X XXA [id number] Jordan Trevino [facility] Internal Medicine [address] [facility],[place] [address] 08/07/2022 11:52:13 08/08/2022 15:12:15 Type 2 diabetes mellitus 83124207 E11.9 A1C is down to 7.3 was [...] issue underlying given recent UTI Essential hypertension 92838231 I10 currently stable overall checking bp overall is ok at home denies major sx no cp no sob Acute urin jhon tract infection 091311128 N39.0 has been treated so we will check Gout 27744543 M10.9 discusses gout etiology and diet and allopurino l we will chke lab next visitand hope cont allopurino l for now Kidney stone 12677762 N2 0.0 quiet and [place] psa [id number] Jordan Trevino DO [facility] Internal Medicine [address] [facility],[place] [address] 09/26/2022 14:01:46 09/26/2022 15:18:06 Type 2 diabetes mellitus 12531400 E11.9 A1C is down to 6.9 he [...] underlying given recent scrotal discomfort Essential hypertension 69176014 I10 currently stable overall checking bp overall is ok at home denies major sx no cp no sob Advance care planning 71 7380286 Z71.89 utd Pain in scrotum 66368845 N50.82 [place] [id number] Jordan Trevino DO [facility] Internal Medicine [address] [facility],[place] [facility] [place] [address] 12/25/2022 10:50:19 12/25/2022 12:10:57 Essential hypertension 13427239 I10 currently stable overall checking bp overall is ok at home denies major sx no cp no sob Type 2 chris betes mellitus 62093875 E11.9 A1C is up to 7.3 he was 6.9 he was 7.3 was 7.1 7.5 last in has been c/o no energyWeig ht stable, will work on losing weight and more exercise we are wondering whether he has an ongoing issue underlying given recent scrotal discomfort Urinary bladder pain 158 60071 R39.82 Vitamin D deficiency 347 12295 E55.9 Disorder o f vitamin B12 764759586 E53.8 Fatigue 20605502 R53.83 [id number] Jordan Trevino [facility] Internal Medicine [address] [facility] [address] 03/21/2023 08:59:40 03/21/2023 10:21:10 Type 2 diabetes mellitus 84722556 E11.9 A1C is up to 7.3 he was 6.9 he was 7.3 was 7.1 7.5 last in has been c/o no energyWeig ht stable, will work on losing weight and more exercise we are wondering whether he has an ongoing issue underlying given recent scrotal discomfort 529455 Jordan Trevino [facility] Internal Medicine [address] [facility] [address] 05/29/2023 14:48:05 05/29/2023 16:08:28 Essential hypertension 37496610 I10 currently stable overall checking bp overall is ok at home denies major sx no cp no sob Type 2 chris betes mellitus 33772415 E11.9 A1C is 7.1 and prior to 6.9 to 7.3 he was 6.9 he was 7.3 was 7.1 7.5 last in has been c/o no energyWeig ht stable, will work on losing weight and more exercise we are wondering whether he has an ongoing issue underlying given recent scrotal discomfort Diverticul osis of colon 449109351 K57.30 quiet and doing good [id number] Jordan Trevino [facility] Internal Medicine [address] [facility],[place] [address] 09/03/2023 13:27:46 09/03/2023 14:48:49 Adult health examination 830299833 Z00.00 here for recheck and is doing ok his exam is difficult due to his obesity Screening for cardiovascular system disease 515708120 Z13.6 here and doing well Screening for malignant neoplasm of colon 947896958 Z12.11 per gi appt Essential hypertension 80873400 I10 currently stable overall checking bp overall is ok at home denies major sx no cp no sob Hypercholesterolemia 136 33575 E78.00 Pain in testicle 6826906 9 N50.819 Pelvic and perineal pain 321192677 R10.2 [id number] Jordan Trevino [facility] Internal Medicine [address] [facility], [place] [address] 12/26/2023 14:29:00 12/26/2023 15:08:11 Type 2 diabetes mellitus 36832733 E11.9 A1C is 7.2 was7.1 and prior to 6.9 to 7.3 he was 6.9he has been c/o no energyWeig ht stable, will work on losing weight and more exercise we are wondering whether he has an ongoing issue underlying given recent scrotal discomfort Essential hypertension 02271990 I10 currently stable overall checking bp overall is ok at home denies major sx no cp no sob Gout 15796041 M10.9 discusses gout etiology and diet and allopurino l we will chke lab next visitand hope cont allopurino l for now Claustrophobia 46741184 F40.240 Pelvic and perineal pain 919252853 R10.2 [id number] Jordan Trevino [facility] Internal Medicine [address] [facility],[place] [address] 03/19/2024 13:18:33 03/19/2024 13:58:53 Depression screening 988494105 Z13.31 PHQ2 normal today Essential hypertension 32634080 I10 currently stable overall checking bp overall is ok at home denies major sx no cp no sob Type 2 chris betes mellitus 87036377 E11.9 A1C is 7.3 was7.2 was7.1 and prior to 6.9 to 7.3 he was 6.9he has been c/o no energyWeig ht stable, will work on losing weight and more exercise we are wondering whether he has an ongoing issue underlying given recent scrotal discomfort 562070 Jordan Trevino [facility] Internal Medicine [address] [facility],[place] [facility] [address] 06/11/2024 13:44:05 06/11/2024 14:22:39 Depression screening 811735536 Z13.31 PHQ2 normal today Essential hypertension 15680861 I10 currently stable overall checking bp overall is ok at home denies major sx no cp no sob Type 2 chris betes mellitus 10853693 E11.9 A1C is 7.5 was7.2 was7.1 and prior to 6.9 to 7.3 he was 6.9he has been c/o no energyWeig ht stable, will work on losing weight and more exercise we are wondering whether he has an ongoing issue underlying given recent scrotal discomfort Gout 46513927 M10.9 discusses gout etiology and diet and allopurino l we will chke lab next visitand hope cont allopurino l for now Vitamin D deficiency 347 21351 E55.9 stable check level next 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 cont b12 [id number] Jordan Trevino [facility] Internal Medicine [address] [facility],[place] [address] 09/23/2024 14:10:00 09/23/2024 14:53:06 Depression screening 410589272 Z13.31 PHQ2 normal today Essential hypertension 59505038 I10 currently stable overall checking bp overall is ok at home denies major sx no cp no sob Type 2 chris betes mellitus 42367755 E11.9 A1C is 7.5 was7.2 was7.1 and prior to 6.9 to 7.3 he was 6.9he has been c/o no energyWeig ht stable, will work on losing weight and more exercise we are wondering whether he has an ongoing issue underlying given recent scrotal discomfort Pain in scrotum 17831460 N50.82 945178 will need a spec referral consider US Lesion of right eyelid 2967880517 0196885 H02.9 [id number] Jordan Trevino [facility] Internal Medicine [address] [facility] [address] 12/24/2024 11:47:50 12/24/2024 15:53:54 Screening for cardiovascular system disease 954386460 Z13.6 here and doing well Screening for malignant neoplasm of colon 284769459 Z12.11 per gi appt Depression screening 171 859319 Z13.31 PHQ2 normal today Essential hypertension 25521161 I10 currently stable overall checking bp overall is ok at home denies major sx no cp no sob Type 2 chris betes mellitus 03031323 E11.9 A1C is 7.5 was7.2 was7.1 and prior to 6.9 to 7.3 he was 6.9he has been c/o no energyWeig ht stable, will work on losing weight and more exercise we are wondering whether he has an ongoing issue underlying given recent scrotal discomfort Onychomyco sis of toenails 479592475 B35.1 Preventive procedure 169 606470 Z00.00 12411925 here for recheck and is doing ok his exam is difficult due to his obesity Fatigue 15240062 R53.82 841634 [id number] Jordan Trevino DO [facility] Internal Medicine [address] [facility],[place] [address] 03/18/2025 14:24:27 03/18/2025 15:05:20 Depression screening 863607689 Z13.31 PHQ2 normal today Essential hypertension 10788046 I10 currently stable overall checking bp overall is ok at home denies major sx no cp no sob Type 2 chris betes mellitus 55277438 E11.9 A1C is 7.6 was 7.5 was7.2 [...] Osorio Member ID Guarantor Name 03/18/2025 2 [place] MEDEX (MEDICARE SUPPLEMENT) [id number] Yovany Mccarthy [id number] Yovany Mccarthy 03/18/2025 1 MEDICARE B-KS: [facility] [employer] Yovany Underwood Albanvaishnavi [id number] Yovany Mccarthy Notes Date Note Type Note Provider Name and Address Organization Details Recorded Time 4 text/htm l Care Management - HypertensionReported by PatientIFor self [...] that he is still doing well Jordan Trevino, DO [address] [place] [address], [phone], [facility] Internal Medicine 03/19/2024 13:57:11 5 text/htm l [...] here for rechk and is doing ok [id number] is 7.5 and stable not exercising muchdid have a bout with gout a while ago Jordan Trevino, [address] [place] [address], [phone], [facility] 06/11/2024 14:09:06 5 text/htm l [...] here for rechk and is doing ok [id number] is 7.4 was 7.5 and stable not exercising muchdid have a bout with gout a while ago still having pain in the left scrotum regionalso having a growth on his right eyelid Jordan Trevino [address] [place] [address], [address], [facility] 09/23/2024 16:44:42 5 text/htm l Care Management - DiabetesReported by PatientIFor self care, patient reportsside effects from medications: [...] in the HPI Jordan Trevino DO [address] [place], [address], [facility] Medicine 12/24/2024 13:31:28 5 text/htm l Care Management - DiabetesReported [...] clearly getting betteroverall is doing ok Jordan Trevino DO [address] [facility], [place], [address], [facility] 03/18/2025 14:53:17
--- OUTSIDE RECORDS SUMMARY | 2025-03-23 17:10 | XMS_ITS | Clinical Summary ---
Author Organization [facility] Address [address] [place] [address] Phone Care Team Providers Care Cavity Pump Operator Name Role Phone Pop Rios Primary Care Provider [phone] Allergies No known active allergies Medications ONETOUCH VERIO Strp strips USE TO TEST BLOOD SUGAR THREE TIMES DAILY 1 Active lisinopril (PRINIVIL,ZESTRI L) 5 MG tablet Take 5 mg by mouth. 1 Active metFORMIN (FORTAMET) 1000 MG (OSM) 24 hr tablet Take 1,000 mg by mouth daily with dinner. Active mupirocin (BACTROBAN) 2 % ointment 2 Active indomethacin (INDOCIN) 25 MG capsule Take 1 capsule (25 mg total) by mouth 2 (two) times a day with meals. 20 capsule 3 Active Additional Information Patient not taking.Reported on 03/18/2025 semaglutide (OZEMPIC) 1 mg/dose (4 mg/3 mL) subcutaneous injection pen every 7 days. Ac tive rosuvastatin (CRESTOR) 5 MG tablet Take 1 tablet by mouth daily. 4 Active terbinafine HCL (LAMISIL) 250 mg tablet Take 250 mg by mouth daily. Active Active Problems Problem Noted Date Diagnosed Date Type 2 diabetes mellitus 09/16/2021 Chronic kidney disease (CKD) Encounters Date Type Department Care Team Description 2025 9:00 AM EST Pre-Admission Testing Pre Procedure Evaluation [address] [place], [place] [id number] Maximus Morrell MD from Last 3 Months Immunizations No known immunizations Social History Tobacco [...] Mass Index 31.84 03/18/2025 9:24 AM EST Plan of Treatment Upcoming Encounters Date Type Department Care Team (Late st Contact Info) Description 03/30/2025 Procedure Pass [facility] Admitting Dept Virtual Department [address] [place] [address] 03/30/2025 10:15 AM EST Hospital Encounter [facility] Admitting Dept Virtual Department [address] [place] [address] Maximus Morrell MD [address] [address] 03/30/2025 10:15 AM EST - 03/30/2025 10:30 AM EST Surgery [facility] Admitting Dept Virtual Department [address] [place] [address] Maximus Morrell MD [address] [place] [address] COLONOSCOPY Scheduled Procedures Name Priority Associated Diagnoses [...] 06/09/2025 06/09/2024, , 12/22/2022, Additional history exists POTASSIUM LEVEL 06/09/2025 06/09/2024, 12/02, 12/22/2022, Additional history exists SMOKING STATUS SCREENING (Once After 26 Yrs) Completed 03/18/2025 HEPATITIS A VACCINES Aged Out No long [...] Care Plan Autogenerated Problem No Nimisha Gomez, RN Medical Devices Not on file Procedures Procedure Name Priority Date/Time Associated Diagnosis Comments HEMOGLOBIN A1C Routine 06/09/2024 9:07 AM EDT Type 2 diabetes mellitus without complication, unspecified 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 press operator insulin use COMPREHENSIVE METABOLIC PANEL (CMP) Routine 06/09/2024 9:07 AM EDT Type 2 diabetes mellitus without complication, unspecified whether [facility] insulin use ENDOSCOPY, COLON 03/22/2018 8:42 AM EST from Last 3 Months or Most Recently Relevant to Health Maintenance Results * (ABNORMAL) Comprehensive metabolic panel (06/09/2024 9:07 AM EDT) SODIUM 138 133 - 146 mmol/L [facility] POTASSIUM 4.7 3.3 - 5.1 mmol/L [facility] CHLORIDE 102 96 - 108 mmol/L [facility] CO2 26 21 - 35 mmol/L [facility] BUN 18 6 - 19 mg/dL [facility] CREATININE 1.10 0.5 - 1.5 mg/dL [facility] GLUCOSE 165(H) 70 - 99 mg/dL [facility] ALBUMIN 4.0 3.9 - 4.8 g/dL [facility] TOTAL PROTEIN 7.7 6.5 - 8.0 g/dL [facility] CALCIUM 9.1 8.4 - 10.3 mg/dL [facility] ALKALINE PHOSPHATASE 99 39 - 117 U/L [facility] TOTAL BILIRUBIN 0.3 0.0 - 1.2 mg/dL [facility] AST 21 0 - 37 U/L [facility] ALT 13 0 - 40 U/L [facility] GLOBULIN 3.7 1 - 4.8 g/dL [facility] EGFR 69 >59 mL/min/1.7 3m2 [facility] Comment:Estimated glomerular filtration rate calculated using the CKD-EPI refit equation. ANION GAP 15 10 - 20 mmol/L [facility] Blood 06/09/2024 9:07 AM EDT 06/09/2024 9:09 AM EDT us Pop A Bigda DO LAB BLOOD BKR ORDERABLES Final R esult Performing Organization Address City/[facility] Co de Phone Number [address] [address] * (ABNORMAL) Hemoglobin A1c (06/09/2024 9:07 AM EDT) HEMOGLOBIN A1C 7.5(H) 4.3 - 5.8 % [facility] Blood 06/09/2024 9:07 AM EDT 06/09/2024 9:09 AM EDT us Pop A BigSDNsquare DO LAB BLOOD BKR ORDERABLES Final R esult Performing Organization Address City/[facility]/ZIP Co de Phone Number [address] [address] * ENDOSCOPY, COLON (03/22/2018 8:42 AM EST) Narrative Transcriptions Maximus Morrell MD - 03/22/2018 8:42 AM EST Patient Name: Yovany Mccarthy Attending MD:: MAXIMUS MORRELL MD Procedure Date: 03/22/2018 8:42 AM Date of : 1945 Age: 73 Admit Type: Outpatient Gender: Male Room: [place] [address] Referring MD: POP RIOS DO Exam Type: [...] monitored continuously. The Olympus adult variable colonoscope [id number] #7 was introduced through the anus and [...] history of colonic polyps CPT copyright 2016 [employer]. All rights reserved. The codes documented in this report are preliminary and upon therapist occupational reviewmay be revised to meet current compliance requirements. [address] [place] [address] us Ortega Amrita Uriel DO GI PROCEDURE ORDERABLES Final Re sult from Last 3 Months or Most Recently Relevant to Health Maintenance Additional Health Concerns Active Problems Noted Date Diagnosed Date Autogenerated Problem 03/13/2025 Insurance MEDICARE PART A & B [employer] CROSS MEDEX SUPPLEMENT MEDICARE PART A & B [employer] MEDEX SUPPLEMENT MEDICARE PART A & B [employer] MEDEX SUPPLEMENT MEDICARE PART A & B [facility] MEDEX SUPPLEMENT MEDICARE PART A & B [employer] MEDEX SUPPLEMENT MEDICARE PART A & B [employer] MEDEX SUPPLEMENT Member Subscriber Plan / [facility] Name:Yovany Mccarthy Relation to Subscriber:Self Name:SathyaMarvin hubern Payer ID:[id number] (NAIC) Type:Indemnity Address: [place] [address] MEDICARE PART A & B [employer] MEDEX SUPPLEMENT MEDICARE PART A & B [employer] MEDEX SUPPLEMENT MEDICARE PART A & B [employer] MEDEX SUPPLEMENT Care Teams Cavity Pump Operator Relationship Specialty Start Date End Date Pop Rios DO [address] [place] [address] [email or web address] PCP - General Internal Medicine 03/17/25 Additional Source Comments The information contained in this document represents components of the legal health record. It is not the complete legal health record.[facility]
--- OUTSIDE RECORDS SUMMARY | 2025-03-23 17:10 | XMS_ITS | Encounter Summary ---
Author Organization [facility] Address [address] [place] [address] Phone Care Team Providers Care Supportability Engineer Name Role Phone Jordan Trevino DO Primary Care Provider [phone] Jordan Trevino DO Primary Care Provider [phone] Reason for Referral * Physical Therapy (Routine) - Closed Specialty Diagnoses / Procedures Referred By Deshawn casillas Referred To Contact Physical Therapy Diagnoses Encounter for rehabilitation Phil Pollard PA [address] [address] Phone: tel: fax: [address] [address] Phone: tel: Referral ID Status Reason Start Date Expiration Date Visits Re quested Visits Authorized [id number] Closed 01/25/2023 01/25/2024 99 99 Encounter Details Date Type Department Care Team (Latest Contact Info) Description 01/25/2023 Transcribe Orders [facility] [address] [place] [address] Phil Pollard PA [address] [address] Encounter for rehabilitation (Primary Dx) [...] Pass [facility] Admitting Dept Virtual Department [address] [place] [address] 03/30/2025 10:15 AM EST Hospital Encounter [facility] Admitting Dept Virtual Department [address] [place] [address] Isiah Randhawa MD [address] [place] [address] 03/30/2025 10:15 AM EST - 03/30/2025 10:30 AM EST Surgery [facility] Admitting Dept Virtual Department [address] [place] [address] Isiah Randhawa MD [address] [place] [address] COLONOSCOPY Scheduled Procedures Name Priority Associated Diagnoses Date/Ti me COLONOSCOPY History of colonic polyps 03/30/2025 10:15 AM EST Scheduled Referrals Name Type Priority Associated Diagnoses Orde r Schedule Ambulatory referral to [facility] Physical Therapy Outpatient Referral Routine Encounter for rehabilitation Ordered: 01/25/2023 documented as of this encounter Visit Diagnoses Diagnosis Encounter for rehabilitation- Primary History of colonic polyps Personal history of colonic polyps documented in this encounter Care Teams Supportability Engineer Relationship Specialty Start Date End Date Jordan Trevino DO PCP - General Internal Medicine 02/05/17 03/16/25 Jordan Trevino DO [address] [place] [address] PCP - General Internal Medicine 03/17/25 documented as of this encounter Additional Source Comments The information contained in this document represents components of the legal health record. It is not the complete legal health record.[facility]
--- OUTSIDE RECORDS SUMMARY | 2025-03-23 17:11 | XMS_ITS | Continuity of Care Document ---
Author Organization [facility], [facility] Address [address] [facility] [address] [place] [address] Assessment Encounter Date Assessment Date Assessment LastModified [...] hemoglobi n, gastroint estinal, stool 2024 025 [facility], [address] [place] [address], [id number], 12/24/2024 12:14:27 CBC w/ auto diff 2024 025 [facility], [address] [place] [address], [place], [address], 12/25/2024 12:14:33 CMP, serum or plasma 2024 025 [facility], [address] [place] [address], [address], 12/24/2024 12:14:27 vitamin B12, serum 2024 025 [facility], [address] [place] [address], [address], 12/25/2024 12:14:33 C-reactiv e protein, quantitat lali, serum or plasma 2024 [facility], [address] [place] [address], [address], 12/24/2024 12:14:27 CBC 2024 [facility], [address] [place] [address], [address], 12/24/2024 12:14:27 CMP, serum or plasma 2024 [facility], [address] [place] [address], [address], 12/25/2024 12:14:33 ESR (erythroc yte sedimenta tion rate), blood 2024 [facility], [address] [place] [address], [address], 12/24/2024 12:14:27 TSH, serum or plasma 2024 [facility], [address] [place] [address], [address], 12/24/2024 12:14:27 testoster one, total, serum 2024 [facility], [address] [place] [address], [address], 12/29/2024 12:21:50 vitamin D, 25-hydrox y, total, serum 2024 [facility], [address] [place] [address], [id number], 12/24/2024 12:14:27 Referral None recorded. Procedures None recorded. Surgeries None recorded. Imaging None recorded. Medication Orders terbinafi ne HCl 250 mg tablet 2024 025 [id number], [address] [facility], [place], [address], 12/24/2024 12:13:11 Patient TargetsNo targets recorded. Patient Instructions Encounter Date Encounter Id Patient Instructions Last Modified By Organization Details Last Modified Time 12/24/2024 [id number] advance care planning: care instructions Not available 12/24/2024 12:13:06 Discussed and explained advance directives such as standard forms to the . Face to face discussion lasted for a duration of ___ minutes. [email or web address] Not available 12/08/2024 16:35:18 Reason for Referral None Reported. Results Created Date Observation Date Name Description Value Unit Range Abnormal Flag Note LastModifiedBy Organization Detail LastModifiedTime 03/13/2003/13/2025 imagi ng/di agnos tic resul t No observ ation record ed. [address] [place], [address], 2025 08:57:42 03/13/2003/13/2025 imagi ng/di agnos tic resul t No observ ation record ed. [address] [place], [address], 2025 08:58:41 Result Notes None recorded. Problems Name Problem SNOMED Code Status Onset Date Resolution Date Notes Provider Name and Address Organization Details Recorded Time Type 2 diabetes mellitus 12062881 Active 2017 [facility] 5 08:37:25 Neuropath y due to diabetes mellitus 275754813 Active 2017 [facility] 5 08:37:25 Ankle edema 17739232 Active 2017 [facility] 5 08:37:25 Sprain of ankle 94693739 [facility] 2017 [facility] 08:[facility]03 Essential hypertens ion 85035312 Active 2017 [facility] 5 08:37:25 Obesity 217769948 Active 2017 [facility] 5 08:37:25 Kidney stone 55987589 Active 2019 Jordan Rios, [address], [address], [facility] 0 09:38:07 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 Jordan Rios, [address], [address], [facility] 1 15:35:45 Diverticu litis 042289049 Active 2021 [facility] 08:37:25 Anaplasmo sis 35275883 Active 2021 [facility] 5 08:37:25 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 [facility] 5 08:37:25 Pain in scrotum 38922949 Active 2022 Jordan Rios, [address], [address], [facility] 5 14:39:43 Acute urinary tract infection 126225895 Active 2022 [facility] 5 08:37:03 Meralgia paresthet ica of right leg 667805836670 108 Active 2022 [facility] 5 08:37:25 Dysuria 61264417 Active 2022 [facility] 5 08:37:25 Gout 90719611 Active 2022 Shelley Zamora null, [facility] 5 08:37:25 Urinary bladder pain 78873285 Active 2022 Shelley Zamora null, [facility] 5 08:37:25 Vitamin D deficienc y 94793605 Active 2022 Shelley Zamora null, [facility] 5 08:37:25 Disorder of vitamin B12 096272119 Active 2022 [facility] 5 08:37:25 Fatigue 13848882 Active 2022 Jordan Rios, [address], [address], [facility] 5 12:12:39 Paronychi a of toe 458176855 Active 2022 Shelley Zamora [facility] 5 08:37:03 Diverticu losis of colon 650153986 Active 2023 Shelley Zamora [facility] 5 08:37:25 Pain in testicle 25031197 Active 2023 Shelley Zamora [facility] 5 08:37:03 Pelvic and perineal pain 262663282 Active 2023 Shelley Zamora [facility] 5 08:37:03 Claustrop hobia 51441561 Active 2023 Shelley Zamora [facility] 5 08:37:25 Prostatit is 8534581 Active 2023 Shelley Zamora [facility] 5 08:37:25 Lesion of right eyelid 104911645682 30230 Active 2024 Jordan Rios, DO [address] [place] [address], [place], [address], [facility] 5 14:49:18 Anemia 811234484 Active 2024 Jordan AmritaAllen Rios, DO [address] [facility], [place], [address], [facility] 22:20:46 Problem Notes None recorded. Procedures Surgical History Date Name Laterality Status Provider Name and Address Organization Details Recorded Time 8 Colonoscopy completed Dottie Marcelo [facility] 01/07/2019 10:43:08 0 Colonoscopy completed Annypoli Cook [facility] 03/18/2018 10:14:53 Imaging Results None [...] Updated DateTime 5 186.06 cm 33.7 kg/m2 119776. 24 g 97 % 87 /min 128/76 mm[Hg] MATTI Grissom [facility] 5 11:54:00 Social History Question Answer Notes LastModified by Organizat ion Details LastModified Time Tobacco Smoking Status Never Smoker Not Available [facility] 02/03/2020 03:36:23 What Was The Date [...] mcg/0.3 mL dose 03/07/2021 completed Not Available [facility] 3 16:38:46 COVID-19, mRNA, LNP-S, PF, 30 mcg/0.3 mL dose 07/02/2020 completed Not Available [facility] 3 16:38:46 COVID-19, mRNA, LNP-S, PF, 30 mcg/0.3 mL dose 07/24/2020 completed Not Available [facility] 3 16:38:46 Past Encounters Encounter ID Performer Location Encounter Start Date Encounter Closed Date Diagnosis/Indication Diagnosis SNOMED-CT Code Diagnosis ICD10 Code Diagnosis IMO Codes Diagnosis Note [id number] DO [facility] [address] [facility],[place] [address] 12/24/2024 11:47:50 12/24/2024 15:53:54 Screening for cardiovascular system disease 942680525 Z13.6 here and doing well Screening for malignant neoplasm of colon 278089165 Z12.11 per gi appt Depression screening 171 492172 Z13.31 PHQ2 normal today Essential hypertension 41631666 I10 currently stable overall checking bp overall is ok at home denies major sx no cp no sob Type 2 chris betes mellitus 42723328 E11.9 A1C is 7.5 was7.2 was7.1 and prior to 6.9 to 7.3 he was 6.9he has been c/o no energyWeig ht stable, will work on losing weight and more exercise we are wondering whether he has an ongoing issue underlying given recent scrotal discomfort Onychomyco sis of toenails 134939103 B35.1 Preventive procedure 169 412638 Z00.00 13252291 here for recheck and is doing ok his exam is difficult due to his obesity Fatigue 35434808 R53.82 [id number] Health Concerns Section Related Observation LastModified by Organization Detai ls LastModified Time None Recorded Concern Status LastModified by Organization Details LastModified Time None Recorded Payers Encounter Date Sequence Insurance Name Policy Number Policy Osorio Covered Member ID Osorio Member ID Guarantor Name 12/24/2024 2 [place] [id number] Yovany Mccarthy [id number] Yovany Mccarthy 12/24/2024 1 [place] Yovany Mccarthy [id number] Yovany Mccarthy Notes Date Note Type [...] as noted in the HPI Jordan Rios, [address] [facility], [place], [address], [facility] 12/24/2024 13:31:28
--- OUTSIDE RECORDS SUMMARY | 2025-03-23 17:11 | XMS_ITS | Encounter Summary ---
Author Organization [facility] Address [address] [facility] [address] [facility] [address] [place] [address] Phone Care Team Providers Care Electronic Scale Subassembler Name Role Phone Jordan Trevino DO Primary Care Provider [phone] Jordan Trevino DO Primary Care Provider [phone] Encounter Details Date Type Department Care Team ([facility] st Contact Info) Description 03/18/2024 Transcribe Orders [address] [place] [address] Jordan Trevino DO [address] [facility] [address] [place], [place] [phone] [email or web address] Social History Tobacco Use Types Packs/Day Years [...] [facility] Virtual Department [address] [place] [address] 03/30/2025 10:15 AM EST Hospital Encounter [facility] Virtual Department [address] [place] [address] Isiah Randhawa MD [address] [place] [phone] [email or web address] 03/30/2025 10:15 AM EST - 03/30/2025 10:30 AM EST Surgery [facility] Virtual Department [address] [place] [address] Isiah Randhawa MD [address] [place] [phone] [email or web address] COLONOSCOPY Scheduled Procedures Name Priority Associated Diagnoses Date/Ti me COLONOSCOPY History of colonic polyps 03/30/2025 10:15 AM EST documented as of this encounter Visit Diagnoses Not on filedocumented in this encounter Care Teams Electronic Scale Subassembler Relationship Specialty Start Date End Date Jordan Trevino DO PCP - General Internal Medicine 02/05/17 03/16/25 Jordan Trevino DO [address] [place] [phone] (work) [email or web address] PCP - General Internal Medicine 03/17/25 documented as of this encounter Additional Source Comments The information contained in this document represents components of the legal health record. It is not the complete legal health record.[facility]
--- OUTSIDE RECORDS SUMMARY | 2025-03-23 17:11 | XMS_ITS | Encounter Summary ---
Author Organization [facility] Address [address] [place] [address] Phone Care Team Providers Care Piercer Name Role Phone ChacortaJordan box Amrita DE LEÓN Primary Care Provider [phone] Jordan Trevino DO Primary Care Provider [phone] Encounter Details Date Type Department Care Team (Late Contact Info) Description 11/28/2019 Transcribe Orders Virtual Department [address] [place] [address] Jordan Trevino DO [address] [facility] [address] [place] [address] [email or web address] Cervicalgia (Primary Dx) Social History Tobacco Use [...] Pass [facility] Virtual Department [address] [place] [address] 03/30/2025 10:15 AM EST Hospital Encounter [facility] Virtual Department [address] [place] [address] Isiah Randhawa MD [address] [place] [id number] 03/30/2025 10:15 AM EST - 03/30/2025 10:30 AM EST Surgery [facility] Virtual Department [address] [place] [address] Isiah Randhawa MD [address] [place] [phone] [email or web address] documented as of this encounter Care Teams Piercer Relationship Specialty Start Date End Date Jordan Trevino DO PCP - General Internal Medicine 02/05/17 03/16/25 Jordan Trevino DO [address] [place] [address] [place] [address] PCP - General Internal Medicine 03/17/25 documented as of this encounter Additional Source Comments The information contained in this document represents components of the legal health record. It is not the complete legal health record.[facility]
--- OUTSIDE RECORDS SUMMARY | 2025-03-23 17:11 | XMS_ITS | Encounter Summary ---
Author Organization [facility] Address [address] [place] [address] [place] [address] Phone Care Team Providers Care Psychiatric Arnp Name Role Phone Jordan Trevino Primary Care Provider [phone] ChacortaJordan box Primary Care Provider [phone] Encounter Details Date Type Department Care Team (Late Contact Info) Description 02/05/2017 Ancillary Orders Virtual Department [address] [place] [address] Mack Cardoso MD [address] [place] [address], [address] [address] [email or web address] Kidney stone Social History Tobacco Use Types [...] [facility] Virtual Department [address] [place] [address] 03/30/2025 10:15 AM EST Hospital Encounter [facility] Virtual Department [address] [place] [address] Isiah Randhawa MD [address] [place] [address] 03/30/2025 10:15 AM EST - 03/30/2025 10:30 AM EST Surgery [facility] Virtual Department [address] [place] [address] Isiah Randhawa MD [address] [place] [phone] [email or web address] COLONOSCOPY Scheduled Procedures Name Priority Associated Diagnoses [...] documented as of this encounter Care Teams Psychiatric Arnp Relationship Specialty Start Date End Date Jordan Trevino DO PCP - General Internal Medicine 02/05/17 03/16/25 Jordan Trevino DO [address] [place] [address] PCP - General Internal Medicine 03/17/25 documented as of this encounter Additional Source Comments The information contained in this document represents components of the legal health record. It is not the complete legal health record.[facility]
--- OUTSIDE RECORDS SUMMARY | 2025-03-23 17:11 | XMS_ITS | Encounter Summary ---
Author Organization [facility] Address [address] [place] [address] [place] [address] Phone Care Team Providers Care Handyman Name Role Phone Jordan Trevino Primary Care Provider [phone] ChacortaJordan box Primary Care Provider [phone] Encounter Details Date Type Department Care Team (Late Contact Info) Description 03/22/2018 Procedure Pass [facility] Virtual Department [address] [place] [address] Social History Tobacco Use Types Packs/Day Years [...] [facility] Virtual Department [address] [place] [address] 03/30/2025 10:15 AM EST Hospital Encounter [facility] Virtual Department [address] [place] [address] Isiah Randhawa MD [address] [place] [address] 03/30/2025 10:15 AM EST - 03/30/2025 10:30 AM EST Surgery [facility] Virtual Department [address] [place] [address] Isiah Randhawa MD [address] [place] [phone] [email or web address] COLONOSCOPY Scheduled Procedures Name Priority Associated Diagnoses Date/Ti me COLONOSCOPY History of colonic polyps 03/30/2025 10:15 AM EST documented as of this encounter Visit Diagnoses Not on filedocumented in this encounter Additional Health Concerns Infection Onset Date Last Indicated Resolved Time CoV-Risk 09/17/2021 09/17/2021 09/28/2021 1:22 AM EDT documented as of this encounter Care Teams Handyman Relationship Specialty Start Date End Date Jordan Trevino DO [email or web address] PCP - General Internal Medicine 02/05/17 03/16/25 Jordan Trevino DO [address] [place] [address] [place] [address] PCP - General Internal Medicine 03/17/25 documented as of this encounter Additional Source Comments The information contained in this document represents components of the legal health record. It is not the complete legal health record.[facility]
== END 2025-03-23 14:43 | disposition home or self-care (01) ==
LOC: HO.HUSH 13:43
PROVIDERS: PCP Internal Medicine; Visit Provider Urology
DX: Z13.9 Encounter for screening, unspecified (principal)

== ENCOUNTER → 2025-03-23 13:43 | Outpatient (BNVA) | payer MEDICARE, SELFPAY | PROVIDERS: PCP Internal Medicine; Visit Provider Urology | DX: N50.811 Right testicular pain (principal); N50.812 Left testicular pain | CPT/HCPCS: 51798; 81003 ==